=== PATIENT | female | born 1940 | race Hispanic/Latino ===

== ENCOUNTER 2016-08-06 13:33 | Inpatient (IN) | payer MEDICARE ==
[2016-08-06] MEDS ORDERED: HYDROcodone/Acetaminophen 10/325 mg Tablet PO PRN (15:53)
[2016-08-06] MEDS ORDERED: Ondansetron ODT 4 MG TAB PO PRN (15:53)
[2016-08-06] MEDS ORDERED: Acetaminophen 325 MG TAB PO PRN (15:55)
[2016-08-06] MEDS ORDERED: Milk Of Magnesia 30 ML UDCUP PO PRN (15:55)
[2016-08-06] MEDS: HYDROcodone/Acetaminophen 10/325 mg Tablet PO PRN ×2 (16:19→21:12)
[2016-08-06 17:20] LABS: Bilirubin Negative (Negative); Blood, Urine Negative (Negative); Clarity Clear (Clear); Glucose, Urine (Dipstick) Negative (Negative); Leukocyte Negative (Negative); Nitrite Negative (Negative); Protein, Urine (Dipstick) Negative (Neg-Trace); Urobilinogen > or = 8.0 mg/dL (0.2-1.0)
[2016-08-06] MEDS ORDERED: Docusate Sodium 100 MG/10 ML UDCUP PO SCH (21:00)
[2016-08-06] MEDS: Famotidine 20 MG TAB PO SCH (21:03)
[2016-08-06] MEDS: Gabapentin 300 MG CAP PO SCH (21:03)
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
[2016-08-07] MEDS: Enoxaparin Sodium 30 MG/0.3 ML SYRINGE SC SCH (05:08)
[2016-08-07] MEDS: HYDROcodone/Acetaminophen 10/325 mg Tablet PO PRN ×5 (05:08→22:46)
[2016-08-07 06:23] LABS: #Basophils 0.1 thou/uL (0.0-0.2); #Eosinphils 0.3 thou/uL (0.0-0.7); #Lymphocytes 1.4 thou/uL (1.20-3.40); #Monocytes 0.5 thou/uL (0.11-0.59); #Neutrophils 4.7 thou/uL (1.40-6.50); %Basophils 0.8 % (0.0-1.0); %Eosinophils 4.9 % (0.0-10.0); %Lymphocytes 19.5 % (21.0-51.0); %Monocytes 6.7 % (0.0-10.0); %Neutrophils 68.2 % (42.0-75.0); Hemoglobin 8.2 g/dL (12.0-16.0); Mean Corpuscular HGB CONC 32.8 g/dL (32.0-36.0); Mean Corpuscular Hemoglobin 30.5 pg (27.0-31.0); Mean Corpuscular Volume 93.1 fl (81.0-99.0); Mean Platelet Volume 6.4 fL (7.4-10.4); Platelet Count 248 thou/uL (130-400); RBC Distribution Width 16.1 % (11.5-14.5); Red Blood Cell (RBC) Count 2.69 mill/uL (4.20-5.40); White Blood Cell (WBC) Count 6.9 thou/uL (4.8-10.8)
[2016-08-07 06:27] LABS: Anion Gap 13 mmol/L (10-20); BUN (Urea Nitrogen) 9 mg/dL (9.8-20.1); Calc. Creatinine Clearance 128 mL/min (70-130); Calcium 8.7 mg/dL (7.8-10.44); Carbon Dioxide 30 mmol/L (23-31); Chloride 104 mmol/L (98-107); Estimated GFR-MDRD Greater than 90; Glucose 110 mg/dL (83-110); Potassium 3.7 mmol/L (3.5-5.1); Sodium 143 mmol/L (136-145)
[2016-08-07] MEDS ORDERED: Sodium Chloride 0.9% 10 ML ONE ×2 (07:35→20:20)
[2016-08-07] MEDS ORDERED: Morphine Sulfate 2 MG/ML SYRINGE ONE (07:56)
[2016-08-07] MEDS ORDERED: Morphine Sulfate 2 MG/ML SYRINGE SLOW IVP SCH (08:00)
[2016-08-07] MEDS ORDERED: Bacitracin Zinc 1 Packet TOP SCH (09:00)
[2016-08-07] MEDS: Gabapentin 300 MG CAP PO SCH ×3 (09:04→20:27)
[2016-08-07] MEDS: Docusate 100 MG CAP PO SCH ×2 (09:09→20:27)
[2016-08-07] MEDS: Famotidine 20 MG TAB PO SCH ×2 (09:09→20:27)
[2016-08-07] MEDS: Morphine Sulfate 2 MG/ML SYRINGE SLOW IVP PRN ×3 (11:39→20:23)
[2016-08-07] MEDS ORDERED: Polyethylene Glycol 3350 17 GM Packet PO SCH (17:45)
[2016-08-07] MEDS: Polyethylene Glycol 3350 17 GM Packet PO SCH (20:27)
[2016-08-08] MEDS: Morphine Sulfate 2 MG/ML SYRINGE SLOW IVP PRN ×5 (01:20→23:45)
[2016-08-08] MEDS: HYDROcodone/Acetaminophen 10/325 mg Tablet PO PRN ×5 (04:12→20:37)
[2016-08-08] MEDS: Enoxaparin Sodium 30 MG/0.3 ML SYRINGE SC SCH (05:39)
[2016-08-08] MEDS: Docusate 100 MG CAP PO SCH ×2 (08:03→20:30)
[2016-08-08] MEDS: Gabapentin 300 MG CAP PO SCH ×3 (08:03→20:31)
[2016-08-08] MEDS: Famotidine 20 MG TAB PO SCH ×2 (08:03→20:32)
[2016-08-08] MEDS: Polyethylene Glycol 3350 17 GM Packet PO SCH (20:30)
[2016-08-09] MEDS: Enoxaparin Sodium 30 MG/0.3 ML SYRINGE SC SCH (05:48)
[2016-08-09] MEDS: HYDROcodone/Acetaminophen 10/325 mg Tablet PO PRN ×4 (05:48→20:15)
[2016-08-09] MEDS: Morphine Sulfate 2 MG/ML SYRINGE SLOW IVP PRN ×3 (07:10→19:10)
[2016-08-09] MEDS: Gabapentin 300 MG CAP PO SCH ×3 (08:54→20:19)
[2016-08-09] MEDS: Famotidine 20 MG TAB PO SCH ×2 (08:54→20:18)
[2016-08-09] MEDS: Docusate 100 MG CAP PO SCH ×2 (08:54→20:17)
[2016-08-09] MEDS: Polyethylene Glycol 3350 17 GM Packet PO SCH (20:22)
[2016-08-09] MEDS: Lorazepam 0.5 MG TAB PO PRN (21:37)
[2016-08-10] MEDS: Morphine Sulfate 2 MG/ML SYRINGE SLOW IVP PRN ×2 (00:39→06:16)
[2016-08-10] MEDS: HYDROcodone/Acetaminophen 10/325 mg Tablet PO PRN ×5 (02:53→23:31)
[2016-08-10] MEDS: Enoxaparin Sodium 30 MG/0.3 ML SYRINGE SC SCH (05:08)
[2016-08-10] MEDS: Docusate 100 MG CAP PO SCH ×2 (08:16→20:32)
[2016-08-10] MEDS: Famotidine 20 MG TAB PO SCH ×2 (08:16→20:33)
[2016-08-10] MEDS: Gabapentin 300 MG CAP PO SCH ×3 (08:16→20:32)
[2016-08-10] MEDS: fentaNYL 50 mcg/hour Patch TD SCH (11:32)
[2016-08-10] MEDS: Morphine Sulfate 10 mg/0.5 ml Oral Syringe PO PRN ×2 (15:59→22:00)
[2016-08-10] MEDS: Lorazepam 0.5 MG TAB PO PRN (19:38)
[2016-08-10] MEDS: Polyethylene Glycol 3350 17 GM Packet PO SCH (20:32)
[2016-08-11] MEDS: HYDROcodone/Acetaminophen 10/325 mg Tablet PO PRN ×5 (03:22→19:34)
[2016-08-11] MEDS: Morphine Sulfate 10 mg/0.5 ml Oral Syringe PO PRN ×4 (04:05→23:07)
[2016-08-11] MEDS: Enoxaparin Sodium 30 MG/0.3 ML SYRINGE SC SCH (05:55)
[2016-08-11] MEDS: Gabapentin 300 MG CAP PO SCH ×3 (07:56→20:54)
[2016-08-11] MEDS: Docusate 100 MG CAP PO SCH ×2 (07:57→20:55)
[2016-08-11] MEDS: Famotidine 20 MG TAB PO SCH ×2 (07:57→20:55)
[2016-08-11] MEDS: Polyethylene Glycol 3350 17 GM Packet PO SCH (20:55)
[2016-08-12] MEDS: HYDROcodone/Acetaminophen 10/325 mg Tablet PO PRN ×5 (02:47→20:30)
[2016-08-12] MEDS: Enoxaparin Sodium 30 MG/0.3 ML SYRINGE SC SCH (05:06)
[2016-08-12] MEDS: Morphine Sulfate 10 mg/0.5 ml Oral Syringe PO PRN ×3 (05:08→17:59)
[2016-08-12] MEDS: Famotidine 20 MG TAB PO SCH ×2 (07:32→20:38)
[2016-08-12] MEDS: Docusate 100 MG CAP PO SCH ×2 (07:33→20:32)
[2016-08-12] MEDS: Gabapentin 300 MG CAP PO SCH ×3 (07:33→20:29)
[2016-08-12] MEDS: Polyethylene Glycol 3350 17 GM Packet PO SCH (20:32)
[2016-08-12] MEDS: Lorazepam 0.5 MG TAB PO PRN (21:27)
[2016-08-13] MEDS: HYDROcodone/Acetaminophen 10/325 mg Tablet PO PRN ×3 (02:53→14:13)
[2016-08-13] MEDS: Morphine Sulfate 10 mg/0.5 ml Oral Syringe PO PRN (04:03)
[2016-08-13] MEDS: Enoxaparin Sodium 30 MG/0.3 ML SYRINGE SC SCH (05:50)
[2016-08-13] MEDS: Docusate 100 MG CAP PO SCH ×2 (08:52→20:23)
[2016-08-13] MEDS: Gabapentin 300 MG CAP PO SCH ×3 (08:52→20:23)
[2016-08-13] MEDS: Famotidine 20 MG TAB PO SCH ×2 (08:52→20:24)
[2016-08-13] MEDS: fentaNYL 50 mcg/hour Patch TD SCH (12:37)
[2016-08-13] MEDS: HYDROcodone/Acetaminophen 10/325 mg Tablet PO SCH ×3 (15:40→23:17)
[2016-08-13] MEDS ORDERED: Morphine Sulfate 10 mg/0.5 ml Oral Syringe SL SCH (17:15)
[2016-08-13] MEDS: Polyethylene Glycol 3350 17 GM Packet PO SCH (20:05)
[2016-08-14] MEDS: HYDROcodone/Acetaminophen 10/325 mg Tablet PO SCH ×6 (04:30→23:37)
[2016-08-14] MEDS: Enoxaparin Sodium 30 MG/0.3 ML SYRINGE SC SCH (05:06)
[2016-08-14] MEDS: Docusate 100 MG CAP PO SCH ×2 (09:15→20:04)
[2016-08-14] MEDS: Gabapentin 300 MG CAP PO SCH ×3 (09:15→20:04)
[2016-08-14] MEDS: Famotidine 20 MG TAB PO SCH ×2 (09:16→20:05)
[2016-08-14] MEDS: Polyethylene Glycol 3350 17 GM Packet PO SCH (20:04)
[2016-08-14] MEDS: Lorazepam 0.5 MG TAB PO PRN (22:58)
[2016-08-15] MEDS: HYDROcodone/Acetaminophen 10/325 mg Tablet PO SCH ×6 (03:33→23:51)
[2016-08-15] MEDS: Enoxaparin Sodium 30 MG/0.3 ML SYRINGE SC SCH (06:35)
[2016-08-15] MEDS: Docusate 100 MG CAP PO SCH ×2 (08:42→20:35)
[2016-08-15] MEDS: Famotidine 20 MG TAB PO SCH ×2 (08:43→20:35)
[2016-08-15] MEDS: Gabapentin 300 MG CAP PO SCH ×3 (08:43→20:35)
[2016-08-15] MEDS: Polyethylene Glycol 3350 17 GM Packet PO SCH ×2 (20:35→20:36)
[2016-08-16] MEDS: HYDROcodone/Acetaminophen 10/325 mg Tablet PO SCH ×5 (03:44→19:47)
[2016-08-16] MEDS: Enoxaparin Sodium 30 MG/0.3 ML SYRINGE SC SCH (05:34)
[2016-08-16] MEDS: Gabapentin 300 MG CAP PO SCH ×3 (09:30→20:31)
[2016-08-16] MEDS: Docusate 100 MG CAP PO SCH ×2 (09:30→20:31)
[2016-08-16] MEDS: Famotidine 20 MG TAB PO SCH ×2 (09:30→20:31)
[2016-08-16] MEDS: fentaNYL 50 mcg/hour Patch TD SCH (12:30)
[2016-08-16] MEDS: Polyethylene Glycol 3350 17 GM Packet PO SCH (20:31)
[2016-08-17] MEDS: HYDROcodone/Acetaminophen 10/325 mg Tablet PO SCH ×7 (00:19→23:44)
[2016-08-17] MEDS: Enoxaparin Sodium 30 MG/0.3 ML SYRINGE SC SCH (05:50)
[2016-08-17] MEDS: Gabapentin 300 MG CAP PO SCH ×3 (08:18→20:53)
[2016-08-17] MEDS: Docusate 100 MG CAP PO SCH ×2 (08:18→20:53)
[2016-08-17] MEDS: Famotidine 20 MG TAB PO SCH ×2 (08:19→20:54)
[2016-08-17] MEDS: Polyethylene Glycol 3350 17 GM Packet PO SCH (20:54)
[2016-08-18] MEDS: HYDROcodone/Acetaminophen 10/325 mg Tablet PO SCH ×6 (03:37→23:48)
[2016-08-18] MEDS: Enoxaparin Sodium 30 MG/0.3 ML SYRINGE SC SCH (05:13)
[2016-08-18] MEDS: Gabapentin 300 MG CAP PO SCH ×3 (08:52→20:25)
[2016-08-18] MEDS: Docusate 100 MG CAP PO SCH ×2 (08:52→20:26)
[2016-08-18] MEDS: Famotidine 20 MG TAB PO SCH ×2 (08:53→20:27)
[2016-08-18] MEDS: Polyethylene Glycol 3350 17 GM Packet PO SCH ×2 (20:25→20:27)
[2016-08-19] MEDS ORDERED: Diazepam 5 MG TAB PO SCH (01:30)
[2016-08-19] MEDS: HYDROcodone/Acetaminophen 10/325 mg Tablet PO SCH ×6 (03:53→23:59)
[2016-08-19] MEDS: Enoxaparin Sodium 30 MG/0.3 ML SYRINGE SC SCH (05:50)
[2016-08-19] MEDS ORDERED: Sodium Chloride Irrig Solution 250 ML BOT ONE (09:24)
[2016-08-19] MEDS: Gabapentin 300 MG CAP PO SCH (09:31)
[2016-08-19] MEDS: Famotidine 20 MG TAB PO SCH ×2 (09:31→20:13)
[2016-08-19] MEDS: Docusate 100 MG CAP PO SCH ×2 (09:31→20:14)
[2016-08-19] MEDS ORDERED: Diazepam 5 MG TAB PO PRN (10:58)
[2016-08-19] MEDS: fentaNYL 50 mcg/hour Patch TD SCH (11:35)
[2016-08-19] MEDS ORDERED: Gabapentin 300 MG CAP PO SCH (12:55)
[2016-08-19] MEDS: Gabapentin 400 MG CAP PO SCH ×2 (15:35→20:14)
[2016-08-19] MEDS: Lorazepam 0.5 MG TAB PO SCH (20:14)
[2016-08-20] MEDS: HYDROcodone/Acetaminophen 10/325 mg Tablet PO SCH ×6 (03:27→23:34)
[2016-08-20] MEDS: Enoxaparin Sodium 30 MG/0.3 ML SYRINGE SC SCH (05:34)
[2016-08-20] MEDS: Gabapentin 400 MG CAP PO SCH ×3 (07:45→19:38)
[2016-08-20] MEDS: Famotidine 20 MG TAB PO SCH ×2 (07:46→19:38)
[2016-08-20] MEDS: Docusate 100 MG CAP PO SCH ×2 (07:46→19:37)
[2016-08-20] MEDS: Polyethylene Glycol 3350 17 GM Packet PO SCH (19:38)
[2016-08-20] MEDS: Lorazepam 0.5 MG TAB PO SCH (19:38)
[2016-08-21] MEDS: HYDROcodone/Acetaminophen 10/325 mg Tablet PO SCH ×6 (03:45→23:47)
[2016-08-21] MEDS: Enoxaparin Sodium 30 MG/0.3 ML SYRINGE SC SCH (05:38)
[2016-08-21] MEDS: Gabapentin 400 MG CAP PO SCH ×3 (07:49→20:51)
[2016-08-21] MEDS: Docusate 100 MG CAP PO SCH ×2 (07:50→20:52)
[2016-08-21] MEDS: Famotidine 20 MG TAB PO SCH ×2 (07:50→20:52)
[2016-08-21] MEDS ORDERED: Morphine Sulfate 10 mg/0.5 ml Oral Syringe SL PRN (09:57)
[2016-08-21] MEDS: Lorazepam 0.5 MG TAB PO SCH (20:52)
[2016-08-21] MEDS: Polyethylene Glycol 3350 17 GM Packet PO SCH (20:52)
[2016-08-22] MEDS: HYDROcodone/Acetaminophen 10/325 mg Tablet PO SCH ×6 (03:51→23:59)
[2016-08-22] MEDS: Enoxaparin Sodium 30 MG/0.3 ML SYRINGE SC SCH (06:00)
[2016-08-22] MEDS: Famotidine 20 MG TAB PO SCH ×2 (08:02→21:09)
[2016-08-22] MEDS: Gabapentin 400 MG CAP PO SCH ×3 (08:02→21:08)
[2016-08-22] MEDS: Docusate 100 MG CAP PO SCH ×2 (08:04→21:11)
[2016-08-22] MEDS: fentaNYL 50 mcg/hour Patch TD SCH (12:41)
[2016-08-22] MEDS: Lorazepam 0.5 MG TAB PO SCH (21:08)
[2016-08-22] MEDS: Polyethylene Glycol 3350 17 GM Packet PO SCH (21:10)
[2016-08-23] MEDS ORDERED: Morphine Sulfate 10 mg/0.5 ml Oral Syringe SL SCH (03:00)
[2016-08-23] MEDS: HYDROcodone/Acetaminophen 10/325 mg Tablet PO SCH ×6 (04:58→23:54)
[2016-08-23] MEDS: Enoxaparin Sodium 30 MG/0.3 ML SYRINGE SC SCH (05:01)
[2016-08-23] MEDS: Gabapentin 400 MG CAP PO SCH ×3 (08:34→20:37)
[2016-08-23] MEDS: Famotidine 20 MG TAB PO SCH ×2 (08:34→20:38)
[2016-08-23] MEDS: Docusate 100 MG CAP PO SCH ×2 (08:34→20:38)
[2016-08-23] MEDS ORDERED: HYDROcodone/Acetaminophen 10/325 mg Tablet PO SCH (16:30)
[2016-08-23] MEDS ORDERED: Mag-Al Plus 1200 MG/1200 MG/120 MG/30 ML UDCUP PO PRN (16:46)
[2016-08-23] MEDS: Lorazepam 0.5 MG TAB PO SCH (20:37)
[2016-08-23] MEDS: Polyethylene Glycol 3350 17 GM Packet PO SCH (20:38)
[2016-08-24] MEDS: HYDROcodone/Acetaminophen 10/325 mg Tablet PO SCH ×6 (04:43→20:43)
[2016-08-24] MEDS: Enoxaparin Sodium 30 MG/0.3 ML SYRINGE SC SCH (05:21)
[2016-08-24] MEDS: Famotidine 20 MG TAB PO SCH ×2 (08:48→20:46)
[2016-08-24] MEDS: Docusate 100 MG CAP PO SCH ×2 (08:48→20:44)
[2016-08-24] MEDS: Gabapentin 400 MG CAP PO SCH (08:48)
[2016-08-24] MEDS: Gabapentin 100 MG CAP PO SCH ×2 (14:59→20:45)
[2016-08-24] MEDS: Gabapentin 300 MG CAP PO SCH ×2 (15:00→20:42)
[2016-08-24] MEDS: Polyethylene Glycol 3350 17 GM Packet PO SCH ×2 (20:42→20:48)
[2016-08-24] MEDS: Lorazepam 0.5 MG TAB PO SCH (20:45)
[2016-08-25] MEDS: HYDROcodone/Acetaminophen 10/325 mg Tablet PO SCH ×6 (00:50→20:57)
[2016-08-25] MEDS: Enoxaparin Sodium 30 MG/0.3 ML SYRINGE SC SCH (05:20)
[2016-08-25] MEDS ORDERED: traMADol HCl 50 MG TAB PO PRN (05:52)
[2016-08-25] MEDS ORDERED: traMADol HCl 50 MG TAB ONE (06:06)
[2016-08-25] MEDS: traMADol HCl 50 MG TAB PO PRN (06:09)
[2016-08-25] MEDS: Docusate 100 MG CAP PO SCH ×2 (08:36→20:57)
[2016-08-25] MEDS: Famotidine 20 MG TAB PO SCH ×2 (08:36→20:56)
[2016-08-25] MEDS: Gabapentin 400 MG CAP PO SCH ×3 (08:37→20:56)
[2016-08-25] MEDS: Nystatin Cream 15 GM TUBE TOP SCH ×2 (08:39→20:59)
[2016-08-25] MEDS ORDERED: fentaNYL 50 mcg/hour Patch TD SCH (09:15)
[2016-08-25] MEDS: fentaNYL 50 mcg/hour Patch TD SCH (09:56)
[2016-08-25] MEDS: Polyethylene Glycol 3350 17 GM Packet PO SCH (20:56)
[2016-08-25] MEDS: Lorazepam 0.5 MG TAB PO SCH (20:57)
[2016-08-26] MEDS: HYDROcodone/Acetaminophen 10/325 mg Tablet PO SCH ×6 (01:12→20:45)
[2016-08-26] MEDS: Enoxaparin Sodium 30 MG/0.3 ML SYRINGE SC SCH (05:01)
[2016-08-26] MEDS: Famotidine 20 MG TAB PO SCH ×2 (08:29→20:44)
[2016-08-26] MEDS: Gabapentin 400 MG CAP PO SCH ×3 (08:29→20:44)
[2016-08-26] MEDS: Docusate 100 MG CAP PO SCH ×2 (08:29→20:44)
[2016-08-26] MEDS: Nystatin Cream 15 GM TUBE TOP SCH ×2 (08:31→20:46)
[2016-08-26] MEDS: Lorazepam 0.5 MG TAB PO SCH (20:44)
[2016-08-26] MEDS: Polyethylene Glycol 3350 17 GM Packet PO SCH (20:46)
[2016-08-27] MEDS: HYDROcodone/Acetaminophen 10/325 mg Tablet PO SCH ×6 (00:49→20:47)
[2016-08-27] MEDS: Enoxaparin Sodium 30 MG/0.3 ML SYRINGE SC SCH (04:59)
[2016-08-27] MEDS: Gabapentin 400 MG CAP PO SCH ×3 (09:20→20:50)
[2016-08-27] MEDS: Docusate 100 MG CAP PO SCH ×2 (09:21→20:49)
[2016-08-27] MEDS: Famotidine 20 MG TAB PO SCH ×2 (09:21→20:51)
[2016-08-27] MEDS: Nystatin Cream 15 GM TUBE TOP SCH ×2 (09:22→20:51)
[2016-08-27] MEDS: Polyethylene Glycol 3350 17 GM Packet PO SCH (20:47)
[2016-08-27] MEDS: Lorazepam 0.5 MG TAB PO SCH (20:49)
[2016-08-28] MEDS: HYDROcodone/Acetaminophen 10/325 mg Tablet PO SCH ×6 (01:29→20:23)
[2016-08-28] MEDS: Enoxaparin Sodium 30 MG/0.3 ML SYRINGE SC SCH (06:11)
[2016-08-28] MEDS: Gabapentin 400 MG CAP PO SCH ×3 (08:58→20:22)
[2016-08-28] MEDS: Docusate 100 MG CAP PO SCH ×2 (08:59→20:23)
[2016-08-28] MEDS: Famotidine 20 MG TAB PO SCH ×2 (08:59→20:25)
[2016-08-28] MEDS: Nystatin Cream 15 GM TUBE TOP SCH ×2 (08:59→20:21)
[2016-08-28] MEDS: fentaNYL 50 mcg/hour Patch TD SCH (10:19)
[2016-08-28] MEDS: Lorazepam 0.5 MG TAB PO SCH (20:24)
[2016-08-28] MEDS: Polyethylene Glycol 3350 17 GM Packet PO SCH (20:32)
[2016-08-29] MEDS: HYDROcodone/Acetaminophen 10/325 mg Tablet PO SCH ×6 (00:39→20:56)
[2016-08-29] MEDS: Enoxaparin Sodium 30 MG/0.3 ML SYRINGE SC SCH (05:42)
[2016-08-29] MEDS: Docusate 100 MG CAP PO SCH ×2 (08:09→20:33)
[2016-08-29] MEDS: Famotidine 20 MG TAB PO SCH ×2 (08:09→20:32)
[2016-08-29] MEDS: Gabapentin 400 MG CAP PO SCH ×3 (08:09→20:31)
[2016-08-29] MEDS: Nystatin Cream 15 GM TUBE TOP SCH ×2 (08:10→20:36)
[2016-08-29] MEDS: Lorazepam 0.5 MG TAB PO SCH (20:33)
[2016-08-29] MEDS: Polyethylene Glycol 3350 17 GM Packet PO SCH (20:34)
[2016-08-30] MEDS: HYDROcodone/Acetaminophen 10/325 mg Tablet PO SCH ×6 (00:56→20:47)
[2016-08-30] MEDS: Enoxaparin Sodium 30 MG/0.3 ML SYRINGE SC SCH (05:01)
[2016-08-30] MEDS: Docusate 100 MG CAP PO SCH ×3 (08:34→20:53)
[2016-08-30] MEDS: Famotidine 20 MG TAB PO SCH ×2 (08:34→20:47)
[2016-08-30] MEDS: Gabapentin 400 MG CAP PO SCH ×3 (08:34→20:46)
[2016-08-30] MEDS: Nystatin Cream 15 GM TUBE TOP SCH ×2 (12:05→20:52)
[2016-08-30] MEDS: Lorazepam 0.5 MG TAB PO SCH (20:47)
[2016-08-30] MEDS: Polyethylene Glycol 3350 17 GM Packet PO SCH (20:54)
[2016-08-31] MEDS: HYDROcodone/Acetaminophen 10/325 mg Tablet PO SCH ×6 (00:54→20:47)
[2016-08-31] MEDS: Enoxaparin Sodium 30 MG/0.3 ML SYRINGE SC SCH (05:14)
[2016-08-31] MEDS: Famotidine 20 MG TAB PO SCH ×2 (09:02→20:47)
[2016-08-31] MEDS: Gabapentin 400 MG CAP PO SCH ×3 (09:02→20:47)
[2016-08-31] MEDS: Docusate 100 MG CAP PO SCH ×2 (09:04→20:49)
[2016-08-31] MEDS: Nystatin Cream 15 GM TUBE TOP SCH ×2 (10:40→20:49)
[2016-08-31] MEDS: fentaNYL 50 mcg/hour Patch TD SCH (10:41)
[2016-08-31] MEDS: Lorazepam 0.5 MG TAB PO SCH (20:47)
[2016-08-31] MEDS: Polyethylene Glycol 3350 17 GM Packet PO SCH (20:49)
[2016-09-01] MEDS: HYDROcodone/Acetaminophen 10/325 mg Tablet PO SCH ×6 (00:42→20:49)
[2016-09-01] MEDS: Lantiseptic Ointment 130 GM JAR TOP PRN (05:00)
[2016-09-01] MEDS: Enoxaparin Sodium 30 MG/0.3 ML SYRINGE SC SCH (05:13)
[2016-09-01] MEDS: Famotidine 20 MG TAB PO SCH ×2 (08:49→20:51)
[2016-09-01] MEDS: Gabapentin 400 MG CAP PO SCH ×3 (08:49→20:50)
[2016-09-01] MEDS: Nystatin Cream 15 GM TUBE TOP SCH ×2 (08:53→21:01)
[2016-09-01] MEDS: Docusate 100 MG CAP PO SCH ×2 (11:53→21:01)
[2016-09-01] MEDS: Lorazepam 0.5 MG TAB PO SCH (20:51)
[2016-09-01] MEDS: Polyethylene Glycol 3350 17 GM Packet PO SCH (21:01)
[2016-09-02] MEDS: HYDROcodone/Acetaminophen 10/325 mg Tablet PO SCH ×6 (00:52→20:49)
[2016-09-02] MEDS: Enoxaparin Sodium 30 MG/0.3 ML SYRINGE SC SCH (05:03)
[2016-09-02] MEDS: Gabapentin 400 MG CAP PO SCH ×3 (09:10→20:49)
[2016-09-02] MEDS: Nystatin Cream 15 GM TUBE TOP SCH ×2 (09:11→20:53)
[2016-09-02] MEDS: Famotidine 20 MG TAB PO SCH ×2 (09:11→20:49)
[2016-09-02] MEDS: Docusate 100 MG CAP PO SCH (09:11)
[2016-09-02] MEDS ORDERED: Polyethylene Glycol 3350 17 GM Packet PO PRN (09:14)
[2016-09-02] MEDS: traMADol HCl 50 MG TAB PO PRN (14:35)
[2016-09-02] MEDS: Lorazepam 0.5 MG TAB PO SCH (20:50)
[2016-09-03] MEDS: HYDROcodone/Acetaminophen 10/325 mg Tablet PO SCH ×6 (00:47→20:40)
[2016-09-03] MEDS: Enoxaparin Sodium 30 MG/0.3 ML SYRINGE SC SCH (05:01)
[2016-09-03 05:11] LABS: #Basophils 0.1 thou/uL (0.0-0.2); #Eosinphils 0.4 thou/uL (0.0-0.7); #Lymphocytes 2.5 thou/uL (1.20-3.40); #Monocytes 0.6 thou/uL (0.11-0.59); #Neutrophils 2.7 thou/uL (1.40-6.50); %Basophils 0.9 % (0.0-1.0); %Eosinophils 6.5 % (0.0-10.0); %Lymphocytes 39.9 % (21.0-51.0); %Monocytes 9.8 % (0.0-10.0); %Neutrophils 42.9 % (42.0-75.0); Hemoglobin 10.4 g/dL (12.0-16.0); Mean Corpuscular HGB CONC 31.1 g/dL (32.0-36.0); Mean Corpuscular Hemoglobin 30.7 pg (27.0-31.0); Mean Corpuscular Volume 98.7 fl (81.0-99.0); Platelet Count 256 thou/uL (130-400); RBC Distribution Width 17.1 % (11.5-14.5); Red Blood Cell (RBC) Count 3.37 mill/uL (4.20-5.40); White Blood Cell (WBC) Count 6.3 thou/uL (4.8-10.8)
[2016-09-03 05:46] LABS: Anion Gap 13 mmol/L (10-20); BUN (Urea Nitrogen) 18 mg/dL (9.8-20.1); Calc. Creatinine Clearance 90 mL/min (70-130); Calcium 9.3 mg/dL (7.8-10.44); Carbon Dioxide 33 mmol/L (23-31); Chloride 102 mmol/L (98-107); Estimated GFR-MDRD Greater than 90; Glucose 91 mg/dL (83-110); Potassium 4.7 mmol/L (3.5-5.1); Sodium 143 mmol/L (136-145)
[2016-09-03] MEDS: Docusate 100 MG CAP PO SCH (09:17)
[2016-09-03] MEDS: Gabapentin 400 MG CAP PO SCH ×3 (09:18→20:38)
[2016-09-03] MEDS: fentaNYL 50 mcg/hour Patch TD SCH (09:18)
[2016-09-03] MEDS: Famotidine 20 MG TAB PO SCH ×2 (09:18→20:39)
[2016-09-03] MEDS: Nystatin Cream 15 GM TUBE TOP SCH ×2 (09:19→20:43)
[2016-09-03] MEDS: Lorazepam 0.5 MG TAB PO SCH (20:39)
[2016-09-04] MEDS: HYDROcodone/Acetaminophen 10/325 mg Tablet PO SCH ×6 (00:54→20:51)
[2016-09-04] MEDS: Enoxaparin Sodium 30 MG/0.3 ML SYRINGE SC SCH (05:02)
[2016-09-04] MEDS ORDERED: traMADol HCl 50 MG TAB PO SCH (06:15)
[2016-09-04] MEDS: Gabapentin 400 MG CAP PO SCH ×3 (08:38→20:51)
[2016-09-04] MEDS: Famotidine 20 MG TAB PO SCH ×2 (08:39→20:51)
[2016-09-04] MEDS: Docusate 100 MG CAP PO SCH (08:40)
[2016-09-04] MEDS: Nystatin Cream 15 GM TUBE TOP SCH ×2 (08:40→20:50)
[2016-09-04] MEDS: traMADol HCl 50 MG TAB PO PRN ×2 (12:10→22:13)
[2016-09-04] MEDS: Lorazepam 0.5 MG TAB PO SCH (20:50)
[2016-09-04] MEDS: Lantiseptic Ointment 130 GM JAR TOP PRN (20:54)
[2016-09-05] MEDS: HYDROcodone/Acetaminophen 10/325 mg Tablet PO SCH ×6 (01:05→20:13)
[2016-09-05] MEDS: Enoxaparin Sodium 30 MG/0.3 ML SYRINGE SC SCH (05:17)
[2016-09-05] MEDS: traMADol HCl 50 MG TAB PO PRN ×2 (06:37→15:21)
[2016-09-05] MEDS: Docusate 100 MG CAP PO SCH (08:34)
[2016-09-05] MEDS: Gabapentin 400 MG CAP PO SCH ×3 (08:34→20:13)
[2016-09-05] MEDS: Famotidine 20 MG TAB PO SCH ×2 (08:34→20:13)
[2016-09-05] MEDS: Nystatin Cream 15 GM TUBE TOP SCH ×2 (08:35→20:16)
[2016-09-05] MEDS: Lorazepam 0.5 MG TAB PO SCH (20:13)
[2016-09-05] MEDS: Lantiseptic Ointment 130 GM JAR TOP PRN (20:16)
[2016-09-06] MEDS: traMADol HCl 50 MG TAB PO PRN ×3 (00:31→23:24)
[2016-09-06] MEDS: HYDROcodone/Acetaminophen 10/325 mg Tablet PO SCH ×6 (01:11→20:55)
[2016-09-06] MEDS: Enoxaparin Sodium 30 MG/0.3 ML SYRINGE SC SCH (05:16)
[2016-09-06] MEDS: Gabapentin 400 MG CAP PO SCH ×3 (09:09→20:55)
[2016-09-06] MEDS: fentaNYL 50 mcg/hour Patch TD SCH (09:09)
[2016-09-06] MEDS: Docusate 100 MG CAP PO SCH (09:10)
[2016-09-06] MEDS: Famotidine 20 MG TAB PO SCH ×2 (09:10→20:55)
[2016-09-06] MEDS: Nystatin Cream 15 GM TUBE TOP SCH ×2 (09:10→21:00)
[2016-09-06] MEDS: Lorazepam 0.5 MG TAB PO SCH (20:56)
[2016-09-07] MEDS: HYDROcodone/Acetaminophen 10/325 mg Tablet PO SCH ×6 (00:50→21:01)
[2016-09-07] MEDS: Enoxaparin Sodium 30 MG/0.3 ML SYRINGE SC SCH (05:31)
[2016-09-07] MEDS: Docusate 100 MG CAP PO SCH (08:56)
[2016-09-07] MEDS: Gabapentin 400 MG CAP PO SCH ×3 (08:56→21:01)
[2016-09-07] MEDS: Famotidine 20 MG TAB PO SCH ×2 (08:56→21:01)
[2016-09-07] MEDS: Nystatin Cream 15 GM TUBE TOP SCH ×2 (08:57→21:02)
[2016-09-07] MEDS: traMADol HCl 50 MG TAB PO PRN ×2 (10:14→23:49)
[2016-09-07] MEDS: Cyclobenzaprine 10 MG TAB PO PRN (13:02)
[2016-09-08] MEDS: HYDROcodone/Acetaminophen 10/325 mg Tablet PO SCH ×6 (01:21→21:02)
[2016-09-08] MEDS: Cyclobenzaprine 10 MG TAB PO PRN ×2 (03:28→11:45)
[2016-09-08] MEDS: Enoxaparin Sodium 30 MG/0.3 ML SYRINGE SC SCH (05:32)
[2016-09-08] MEDS: Gabapentin 400 MG CAP PO SCH ×3 (08:32→21:02)
[2016-09-08] MEDS: Docusate 100 MG CAP PO SCH (08:32)
[2016-09-08] MEDS: Famotidine 20 MG TAB PO SCH ×2 (08:32→21:02)
[2016-09-08] MEDS: Nystatin Cream 15 GM TUBE TOP SCH ×2 (08:34→21:04)
[2016-09-08] MEDS: traMADol HCl 50 MG TAB PO PRN ×2 (09:36→18:03)
[2016-09-09] MEDS: HYDROcodone/Acetaminophen 10/325 mg Tablet PO SCH ×6 (01:02→20:58)
[2016-09-09] MEDS: Cyclobenzaprine 10 MG TAB PO PRN ×2 (01:02→12:31)
[2016-09-09] MEDS: Enoxaparin Sodium 30 MG/0.3 ML SYRINGE SC SCH (05:03)
[2016-09-09] MEDS: fentaNYL 50 mcg/hour Patch TD SCH (08:44)
[2016-09-09] MEDS: Docusate 100 MG CAP PO SCH (08:46)
[2016-09-09] MEDS: Gabapentin 400 MG CAP PO SCH ×3 (08:46→20:58)
[2016-09-09] MEDS: Nystatin Cream 15 GM TUBE TOP SCH ×2 (08:48→20:58)
[2016-09-09] MEDS: Famotidine 20 MG TAB PO SCH ×2 (08:48→20:58)
[2016-09-09] MEDS: traMADol HCl 50 MG TAB PO PRN (10:55)
[2016-09-10] MEDS: HYDROcodone/Acetaminophen 10/325 mg Tablet PO SCH ×6 (00:46→20:59)
[2016-09-10] MEDS: Cyclobenzaprine 10 MG TAB PO PRN ×2 (00:49→13:07)
[2016-09-10] MEDS: Enoxaparin Sodium 30 MG/0.3 ML SYRINGE SC SCH (05:06)
[2016-09-10] MEDS: Docusate 100 MG CAP PO SCH (09:20)
[2016-09-10] MEDS: Gabapentin 400 MG CAP PO SCH ×3 (09:20→20:16)
[2016-09-10] MEDS: Famotidine 20 MG TAB PO SCH ×2 (09:21→20:16)
[2016-09-10] MEDS: Nystatin Cream 15 GM TUBE TOP SCH ×2 (11:05→20:17)
[2016-09-10] MEDS: traMADol HCl 50 MG TAB PO PRN ×2 (14:24→22:29)
[2016-09-11] MEDS: Cyclobenzaprine 10 MG TAB PO PRN (00:21)
[2016-09-11] MEDS: HYDROcodone/Acetaminophen 10/325 mg Tablet PO SCH ×6 (01:07→21:03)
[2016-09-11] MEDS: Enoxaparin Sodium 30 MG/0.3 ML SYRINGE SC SCH (05:26)
[2016-09-11] MEDS: Docusate 100 MG CAP PO SCH (09:02)
[2016-09-11] MEDS: Gabapentin 400 MG CAP PO SCH ×3 (09:03→21:02)
[2016-09-11] MEDS: Famotidine 20 MG TAB PO SCH ×2 (09:03→21:02)
[2016-09-11] MEDS: Nystatin Cream 15 GM TUBE TOP SCH ×2 (09:04→21:05)
[2016-09-11 09:57] LABS: #Basophils 0.1 thou/uL (0.0-0.2); #Eosinphils 0.6 thou/uL (0.0-0.7); #Lymphocytes 2.5 thou/uL (1.20-3.40); #Monocytes 0.5 thou/uL (0.11-0.59); #Neutrophils 2.6 thou/uL (1.40-6.50); %Basophils 0.9 % (0.0-1.0); %Eosinophils 9.2 % (0.0-10.0); %Neutrophils 41.9 % (42.0-75.0); Hemoglobin 10.8 g/dL (12.0-16.0); Mean Corpuscular Hemoglobin 30.6 pg (27.0-31.0); Mean Corpuscular Volume 98.7 fl (81.0-99.0); Mean Platelet Volume 6.7 fL (7.4-10.4); Platelet Count 287 thou/uL (130-400); RBC Distribution Width 16.7 % (11.5-14.5); Red Blood Cell (RBC) Count 3.53 mill/uL (4.20-5.40); White Blood Cell (WBC) Count 6.1 thou/uL (4.8-10.8)
[2016-09-11 10:07] LABS: ALT (SGPT) 9 U/L (0-55); AST (SGOT) 15 U/L (5-34); Albumin 3.3 g/dL (3.4-4.8); Alkaline Phosphatase 177 U/L (40-150); Anion Gap 16 mmol/L (10-20); BUN (Urea Nitrogen) 17 mg/dL (9.8-20.1); Bilirubin, Total 0.3 mg/dL (0.2-1.2); Calc. Creatinine Clearance 86 mL/min (70-130); Calcium 9.3 mg/dL (7.8-10.44); Carbon Dioxide 31 mmol/L (23-31); Chloride 98 mmol/L (98-107); Estimated GFR-MDRD 86; Globulin 2.9 g/dL (2.4-3.5); Glucose 81 mg/dL (83-110); Potassium 3.9 mmol/L (3.5-5.1); Protein, Total 6.2 g/dL (5.8-8.1); Sodium 141 mmol/L (136-145)
[2016-09-11] MEDS: traMADol HCl 50 MG TAB PO PRN (10:20)
[2016-09-11] MEDS: Cyclobenzaprine 10 MG TAB PO SCH ×2 (13:08→21:43)
[2016-09-12] MEDS: HYDROcodone/Acetaminophen 10/325 mg Tablet PO SCH ×6 (00:53→21:06)
[2016-09-12] MEDS: Cyclobenzaprine 10 MG TAB PO SCH ×3 (05:19→21:05)
[2016-09-12] MEDS: Enoxaparin Sodium 30 MG/0.3 ML SYRINGE SC SCH (05:19)
[2016-09-12] MEDS: Famotidine 20 MG TAB PO SCH ×2 (08:59→21:05)
[2016-09-12] MEDS: Gabapentin 400 MG CAP PO SCH ×3 (08:59→21:05)
[2016-09-12] MEDS: Docusate 100 MG CAP PO SCH (09:01)
[2016-09-12] MEDS: Nystatin Cream 15 GM TUBE TOP SCH ×2 (09:01→21:05)
[2016-09-12] MEDS: fentaNYL 50 mcg/hour Patch TD SCH (09:02)
[2016-09-12] MEDS: traMADol HCl 50 MG TAB PO PRN (11:12)
[2016-09-13] MEDS: HYDROcodone/Acetaminophen 10/325 mg Tablet PO SCH ×6 (01:14→20:56)
[2016-09-13] MEDS: Cyclobenzaprine 10 MG TAB PO SCH ×3 (05:27→21:41)
[2016-09-13] MEDS: Enoxaparin Sodium 30 MG/0.3 ML SYRINGE SC SCH (05:27)
[2016-09-13] MEDS: Gabapentin 400 MG CAP PO SCH ×3 (08:36→20:58)
[2016-09-13] MEDS: Docusate 100 MG CAP PO SCH (08:37)
[2016-09-13] MEDS: Nystatin Cream 15 GM TUBE TOP SCH ×2 (08:37→21:40)
[2016-09-13] MEDS: Famotidine 20 MG TAB PO SCH ×2 (08:37→20:59)
[2016-09-14] MEDS: HYDROcodone/Acetaminophen 10/325 mg Tablet PO SCH ×6 (00:38→20:44)
[2016-09-14] MEDS: Enoxaparin Sodium 30 MG/0.3 ML SYRINGE SC SCH (05:15)
[2016-09-14] MEDS: Cyclobenzaprine 10 MG TAB PO SCH ×3 (05:16→21:04)
[2016-09-14] MEDS: Famotidine 20 MG TAB PO SCH ×2 (08:26→20:43)
[2016-09-14] MEDS: Gabapentin 400 MG CAP PO SCH ×3 (08:27→20:43)
[2016-09-14] MEDS: Docusate 100 MG CAP PO SCH (08:28)
[2016-09-14] MEDS: Nystatin Cream 15 GM TUBE TOP SCH ×2 (08:28→20:46)
[2016-09-15] MEDS: HYDROcodone/Acetaminophen 10/325 mg Tablet PO SCH ×6 (00:59→20:36)
[2016-09-15] MEDS: Enoxaparin Sodium 30 MG/0.3 ML SYRINGE SC SCH (05:03)
[2016-09-15] MEDS: Cyclobenzaprine 10 MG TAB PO SCH ×2 (05:03→14:13)
[2016-09-15] MEDS: Famotidine 20 MG TAB PO SCH ×2 (08:42→20:36)
[2016-09-15] MEDS: Gabapentin 400 MG CAP PO SCH ×3 (08:42→20:36)
[2016-09-15] MEDS: Nystatin Cream 15 GM TUBE TOP SCH ×2 (08:43→20:37)
[2016-09-15] MEDS: Docusate 100 MG CAP PO SCH (08:43)
[2016-09-15] MEDS: fentaNYL 50 mcg/hour Patch TD SCH (14:12)
[2016-09-15] MEDS: traMADol HCl 50 MG TAB PO PRN (14:15)
[2016-09-16] MEDS: HYDROcodone/Acetaminophen 10/325 mg Tablet PO SCH ×6 (00:59→20:58)
[2016-09-16] MEDS: Cyclobenzaprine 10 MG TAB PO SCH ×4 (01:01→21:01)
[2016-09-16] MEDS: Enoxaparin Sodium 30 MG/0.3 ML SYRINGE SC SCH (05:32)
[2016-09-16] MEDS: Docusate 100 MG CAP PO SCH (08:48)
[2016-09-16] MEDS: Famotidine 20 MG TAB PO SCH ×2 (08:49→21:01)
[2016-09-16] MEDS: Gabapentin 400 MG CAP PO SCH ×3 (08:49→20:57)
[2016-09-16] MEDS: Nystatin Cream 15 GM TUBE TOP SCH ×2 (08:50→20:57)
[2016-09-17] MEDS: HYDROcodone/Acetaminophen 10/325 mg Tablet PO SCH ×6 (00:44→20:57)
[2016-09-17] MEDS: Cyclobenzaprine 10 MG TAB PO SCH ×3 (05:12→20:57)
[2016-09-17] MEDS: Enoxaparin Sodium 30 MG/0.3 ML SYRINGE SC SCH (05:13)
[2016-09-17] MEDS: Clotrimazole 1% Cream 15 GM TUBE TOP SCH (09:28)
[2016-09-17] MEDS: Famotidine 20 MG TAB PO SCH ×2 (09:28→20:56)
[2016-09-17] MEDS: Docusate 100 MG CAP PO SCH (09:29)
[2016-09-17] MEDS: Gabapentin 400 MG CAP PO SCH ×3 (09:29→20:56)
[2016-09-17] MEDS: Nystatin Cream 15 GM TUBE TOP SCH ×2 (09:30→20:58)
[2016-09-17] MEDS: traMADol HCl 50 MG TAB PO PRN (19:12)
[2016-09-18] MEDS: HYDROcodone/Acetaminophen 10/325 mg Tablet PO SCH ×6 (00:46→22:13)
[2016-09-18] MEDS: traMADol HCl 50 MG TAB PO PRN ×3 (03:34→11:35)
[2016-09-18] MEDS: Cyclobenzaprine 10 MG TAB PO SCH ×3 (05:17→22:13)
[2016-09-18] MEDS: Enoxaparin Sodium 30 MG/0.3 ML SYRINGE SC SCH (05:17)
[2016-09-18] MEDS: Gabapentin 400 MG CAP PO SCH ×3 (09:07→22:12)
[2016-09-18] MEDS: Famotidine 20 MG TAB PO SCH ×2 (09:08→22:12)
[2016-09-18] MEDS: Docusate 100 MG CAP PO SCH (09:08)
[2016-09-18] MEDS: Clotrimazole 1% Cream 15 GM TUBE TOP SCH (09:26)
[2016-09-18] MEDS: Nystatin Cream 15 GM TUBE TOP SCH ×2 (09:26→22:15)
[2016-09-18] MEDS ORDERED: fentaNYL 50 mcg/hour Patch TD SCH (10:00)
[2016-09-18] MEDS: fentaNYL 50 mcg/hour Patch TD SCH (12:27)
[2016-09-19] MEDS: HYDROcodone/Acetaminophen 10/325 mg Tablet PO SCH ×6 (02:02→20:44)
[2016-09-19] MEDS: traMADol HCl 50 MG TAB PO PRN (04:44)
[2016-09-19] MEDS: Enoxaparin Sodium 30 MG/0.3 ML SYRINGE SC SCH (05:31)
[2016-09-19] MEDS: Cyclobenzaprine 10 MG TAB PO SCH ×3 (05:32→20:45)
[2016-09-19] MEDS: Gabapentin 400 MG CAP PO SCH ×3 (08:56→20:44)
[2016-09-19] MEDS: Famotidine 20 MG TAB PO SCH ×2 (08:58→20:44)
[2016-09-19] MEDS: Docusate 100 MG CAP PO SCH (08:58)
[2016-09-19] MEDS: Clotrimazole 1% Cream 15 GM TUBE TOP SCH (09:00)
[2016-09-19] MEDS: Nystatin Cream 15 GM TUBE TOP SCH ×2 (09:00→20:46)
[2016-09-20] MEDS: HYDROcodone/Acetaminophen 10/325 mg Tablet PO SCH ×6 (01:14→21:02)
[2016-09-20] MEDS: Cyclobenzaprine 10 MG TAB PO SCH ×3 (05:15→21:02)
[2016-09-20] MEDS: Enoxaparin Sodium 30 MG/0.3 ML SYRINGE SC SCH (05:17)
[2016-09-20] MEDS: Clotrimazole 1% Cream 15 GM TUBE TOP SCH (08:54)
[2016-09-20] MEDS: Docusate 100 MG CAP PO SCH (08:56)
[2016-09-20] MEDS: Gabapentin 400 MG CAP PO SCH ×3 (08:56→21:02)
[2016-09-20] MEDS: Famotidine 20 MG TAB PO SCH ×2 (08:58→21:02)
[2016-09-20] MEDS: traMADol HCl 50 MG TAB PO PRN (09:49)
[2016-09-20] MEDS: Nystatin Cream 15 GM TUBE TOP SCH ×2 (13:30→21:05)
[2016-09-21] MEDS: traMADol HCl 50 MG TAB PO PRN ×3 (00:11→22:34)
[2016-09-21] MEDS: HYDROcodone/Acetaminophen 10/325 mg Tablet PO SCH ×6 (00:58→21:04)
[2016-09-21] MEDS: Enoxaparin Sodium 30 MG/0.3 ML SYRINGE SC SCH (05:01)
[2016-09-21] MEDS: Cyclobenzaprine 10 MG TAB PO SCH ×3 (05:01→21:03)
[2016-09-21] MEDS: Clotrimazole 1% Cream 15 GM TUBE TOP SCH (08:51)
[2016-09-21] MEDS: Docusate 100 MG CAP PO SCH (08:53)
[2016-09-21] MEDS: Famotidine 20 MG TAB PO SCH ×2 (08:53→21:03)
[2016-09-21] MEDS: Gabapentin 400 MG CAP PO SCH ×3 (08:53→21:02)
[2016-09-21] MEDS: Nystatin Cream 15 GM TUBE TOP SCH ×2 (08:56→21:05)
[2016-09-21] MEDS: fentaNYL 50 mcg/hour Patch TD SCH (13:50)
[2016-09-21] MEDS ORDERED: HYDROcodone/Acetaminophen 10/325 mg Tablet PO SCH (14:15)
[2016-09-22] MEDS: HYDROcodone/Acetaminophen 10/325 mg Tablet PO SCH ×6 (01:10→20:57)
[2016-09-22] MEDS: Cyclobenzaprine 10 MG TAB PO SCH ×3 (05:07→20:59)
[2016-09-22] MEDS: Enoxaparin Sodium 30 MG/0.3 ML SYRINGE SC SCH (05:08)
[2016-09-22] MEDS: Clotrimazole 1% Cream 15 GM TUBE TOP SCH (08:32)
[2016-09-22] MEDS: Nystatin Cream 15 GM TUBE TOP SCH ×2 (08:33→21:00)
[2016-09-22] MEDS: Lantiseptic Ointment 130 GM JAR TOP PRN (08:33)
[2016-09-22] MEDS: Gabapentin 400 MG CAP PO SCH ×3 (08:35→20:56)
[2016-09-22] MEDS: Famotidine 20 MG TAB PO SCH ×2 (08:36→20:56)
[2016-09-22] MEDS: Docusate 100 MG CAP PO SCH (08:38)
[2016-09-22] MEDS: traMADol HCl 50 MG TAB PO PRN (19:37)
[2016-09-23] MEDS: HYDROcodone/Acetaminophen 10/325 mg Tablet PO SCH ×6 (01:06→20:59)
[2016-09-23] MEDS: Enoxaparin Sodium 30 MG/0.3 ML SYRINGE SC SCH (05:07)
[2016-09-23] MEDS: Cyclobenzaprine 10 MG TAB PO SCH ×3 (05:09→21:00)
[2016-09-23 05:29] VITALS: BMI 31.2
[2016-09-23] MEDS: Gabapentin 400 MG CAP PO SCH ×3 (08:30→21:00)
[2016-09-23] MEDS: Docusate 100 MG CAP PO SCH (08:30)
[2016-09-23] MEDS: Famotidine 20 MG TAB PO SCH ×2 (08:30→21:00)
[2016-09-23] MEDS: Nystatin Cream 15 GM TUBE TOP SCH ×2 (08:31→21:01)
[2016-09-23] MEDS: Clotrimazole 1% Cream 15 GM TUBE TOP SCH (08:31)
[2016-09-23] MEDS: Lantiseptic Ointment 130 GM JAR TOP PRN (08:31)
[2016-09-23] MEDS: traMADol HCl 50 MG TAB PO PRN ×2 (10:51→23:36)
[2016-09-24] MEDS: HYDROcodone/Acetaminophen 10/325 mg Tablet PO SCH ×6 (01:19→21:23)
[2016-09-24] MEDS: Cyclobenzaprine 10 MG TAB PO SCH ×3 (05:19→21:26)
[2016-09-24] MEDS: Enoxaparin Sodium 30 MG/0.3 ML SYRINGE SC SCH (05:19)
[2016-09-24] MEDS: Gabapentin 400 MG CAP PO SCH ×3 (08:48→21:22)
[2016-09-24] MEDS: Lantiseptic Ointment 130 GM JAR TOP PRN (08:49)
[2016-09-24] MEDS: Nystatin Cream 15 GM TUBE TOP SCH ×2 (08:50→21:27)
[2016-09-24] MEDS: Docusate 100 MG CAP PO SCH (08:50)
[2016-09-24] MEDS: Famotidine 20 MG TAB PO SCH ×2 (08:50→21:25)
[2016-09-24] MEDS: Clotrimazole 1% Cream 15 GM TUBE TOP SCH (08:50)
[2016-09-24] MEDS: fentaNYL 50 mcg/hour Patch TD SCH (14:22)
[2016-09-24] MEDS: traMADol HCl 50 MG TAB PO PRN ×2 (14:25→23:18)
[2016-09-25] MEDS: HYDROcodone/Acetaminophen 10/325 mg Tablet PO SCH ×6 (00:59→21:02)
[2016-09-25] MEDS: Enoxaparin Sodium 30 MG/0.3 ML SYRINGE SC SCH (05:15)
[2016-09-25] MEDS: Cyclobenzaprine 10 MG TAB PO SCH ×3 (05:15→21:00)
[2016-09-25] MEDS: Gabapentin 400 MG CAP PO SCH ×3 (08:41→21:01)
[2016-09-25] MEDS: Clotrimazole 1% Cream 15 GM TUBE TOP SCH (08:42)
[2016-09-25] MEDS: Docusate 100 MG CAP PO SCH (08:43)
[2016-09-25] MEDS: Famotidine 20 MG TAB PO SCH ×2 (08:46→21:00)
[2016-09-25] MEDS: traMADol HCl 50 MG TAB PO PRN ×2 (10:39→19:49)
[2016-09-25] MEDS: Nystatin Cream 15 GM TUBE TOP SCH ×2 (10:40→21:04)
[2016-09-26] MEDS: HYDROcodone/Acetaminophen 10/325 mg Tablet PO SCH ×6 (00:52→20:58)
[2016-09-26] MEDS: Cyclobenzaprine 10 MG TAB PO SCH ×3 (05:39→21:00)
[2016-09-26] MEDS: Enoxaparin Sodium 30 MG/0.3 ML SYRINGE SC SCH (06:33)
[2016-09-26] MEDS: Docusate 100 MG CAP PO SCH (09:41)
[2016-09-26] MEDS: Gabapentin 400 MG CAP PO SCH ×3 (09:41→20:58)
[2016-09-26] MEDS: Famotidine 20 MG TAB PO SCH ×2 (09:41→20:58)
[2016-09-26] MEDS: Clotrimazole 1% Cream 15 GM TUBE TOP SCH (09:47)
[2016-09-26] MEDS: Nystatin Cream 15 GM TUBE TOP SCH ×2 (09:48→21:00)
[2016-09-26] MEDS: traMADol HCl 50 MG TAB PO PRN (11:02)
[2016-09-27] MEDS: HYDROcodone/Acetaminophen 10/325 mg Tablet PO SCH ×6 (00:46→21:15)
[2016-09-27] MEDS: traMADol HCl 50 MG TAB PO PRN ×2 (03:35→17:05)
[2016-09-27] MEDS: Enoxaparin Sodium 30 MG/0.3 ML SYRINGE SC SCH (05:11)
[2016-09-27] MEDS: Cyclobenzaprine 10 MG TAB PO SCH ×3 (05:12→21:15)
[2016-09-27] MEDS: Gabapentin 400 MG CAP PO SCH ×3 (08:38→21:15)
[2016-09-27] MEDS: Famotidine 20 MG TAB PO SCH ×2 (08:39→21:15)
[2016-09-27] MEDS: Nystatin Cream 15 GM TUBE TOP SCH ×2 (08:40→21:16)
[2016-09-27] MEDS: Clotrimazole 1% Cream 15 GM TUBE TOP SCH (08:40)
[2016-09-27] MEDS: Docusate 100 MG CAP PO SCH (08:40)
[2016-09-27] MEDS: fentaNYL 50 mcg/hour Patch TD SCH (14:51)
[2016-09-28] MEDS: traMADol HCl 50 MG TAB PO PRN (00:06)
[2016-09-28] MEDS: HYDROcodone/Acetaminophen 10/325 mg Tablet PO SCH ×6 (00:59→20:43)
[2016-09-28] MEDS: Cyclobenzaprine 10 MG TAB PO SCH ×3 (05:05→20:42)
[2016-09-28] MEDS: Enoxaparin Sodium 30 MG/0.3 ML SYRINGE SC SCH (05:06)
[2016-09-28] MEDS: Clotrimazole 1% Cream 15 GM TUBE TOP SCH (08:36)
[2016-09-28] MEDS: Famotidine 20 MG TAB PO SCH ×2 (08:36→20:42)
[2016-09-28] MEDS: Nystatin Cream 15 GM TUBE TOP SCH ×2 (08:37→20:44)
[2016-09-28] MEDS: Docusate 100 MG CAP PO SCH (08:37)
[2016-09-28] MEDS: Gabapentin 400 MG CAP PO SCH ×3 (08:37→20:42)
[2016-09-29] MEDS: HYDROcodone/Acetaminophen 10/325 mg Tablet PO SCH ×4 (01:03→12:56)
[2016-09-29] MEDS: traMADol HCl 50 MG TAB PO PRN ×2 (03:23→11:21)
[2016-09-29] MEDS: Cyclobenzaprine 10 MG TAB PO SCH ×2 (05:20→12:59)
[2016-09-29] MEDS: Enoxaparin Sodium 30 MG/0.3 ML SYRINGE SC SCH (05:21)
[2016-09-29] MEDS: Famotidine 20 MG TAB PO SCH (09:12)
[2016-09-29] MEDS: Gabapentin 400 MG CAP PO SCH (09:12)
[2016-09-29] MEDS: Docusate 100 MG CAP PO SCH (09:12)
[2016-09-29] MEDS: Clotrimazole 1% Cream 15 GM TUBE TOP SCH (09:14)
[2016-09-29] MEDS: Nystatin Cream 15 GM TUBE TOP SCH (09:14)
[2016-09-29 11:27] VITALS: BP 99/58; TEMP 98
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
== END 2016-09-29 13:00 | DRG 561 ==
LOC: MADMS 13:33
PROVIDERS: ADMIT Family Medicine; ATTEND Family Medicine
DX: S32.401D Unspecified fracture of right acetabulum, subsequent encounter for fracture with routine healing (principal); D64.9 Anemia, unspecified; E78.5 Hyperlipidemia, unspecified; R53.1 Weakness; M51.36 Other intervertebral disc degeneration, lumbar region; S52.601D Unspecified fracture of lower end of right ulna, subsequent encounter for closed fracture with routine healing; S52.501D Unspecified fracture of the lower end of right radius, subsequent encounter for closed fracture with routine healing; S82.841D Displaced bimalleolar fracture of right lower leg, subsequent encounter for closed fracture with routine healing; S22.49XD Multiple fractures of ribs, unspecified side, subsequent encounter for fracture with routine healing; F41.9 Anxiety disorder, unspecified; F17.210 Nicotine dependence, cigarettes, uncomplicated; Z66 Do not resuscitate; K59.00 Constipation, unspecified; G47.00 Insomnia, unspecified; M48.06 Spinal stenosis, lumbar region; V43.52XD Car driver injured in collision with other type car in traffic accident, subsequent encounter
CPT/HCPCS: 36415; 36416; 80048; 80053; 81003; 85025; A4216; G8978-GP-CM; G8978-GP-CN; G8979-GP-CK; G8979-GP-CL; J1650; J2270; Q0162

== ENCOUNTER 2016-10-26 05:30 | Emergency (ER) | payer MEDICARE ==
[2016-10-26 06:19] LABS: #Eosinphils 0.4 thou/uL (0.0-0.7); #Lymphocytes 1.5 thou/uL (1.20-3.40); #Monocytes 0.5 thou/uL (0.11-0.59); #Neutrophils 3.9 thou/uL (1.40-6.50); %Basophils 0.7 % (0.0-1.0); %Eosinophils 6.3 % (0.0-10.0); %Lymphocytes 23.3 % (21.0-51.0); %Neutrophils 61.6 % (42.0-75.0); Hemoglobin 10.4 g/dL (12.0-16.0); Mean Corpuscular Hemoglobin 30.4 pg (27.0-31.0); Mean Platelet Volume 6.1 fL (7.4-10.4); Platelet Count 221 thou/uL (130-400); Red Blood Cell (RBC) Count 3.42 mill/uL (4.20-5.40); White Blood Cell (WBC) Count 6.3 thou/uL (4.8-10.8)
[2016-10-26 06:34] LABS: ALT (SGPT) 9 U/L (0-55); AST (SGOT) 19 U/L (5-34); Albumin 3.4 g/dL (3.4-4.8); Alkaline Phosphatase 154 U/L (40-150); Anion Gap 13 mmol/L (10-20); BUN (Urea Nitrogen) 15 mg/dL (9.8-20.1); Bilirubin, Total 0.3 mg/dL (0.2-1.2); Calc. Creatinine Clearance 0 mL/min (70-130); Calcium 8.9 mg/dL (7.8-10.44); Carbon Dioxide 28 mmol/L (23-31); Chloride 103 mmol/L (98-107); Estimated GFR-MDRD Greater than 90; Globulin 2.6 g/dL (2.4-3.5); Glucose 110 mg/dL (83-110); Potassium 3.9 mmol/L (3.5-5.1); Sodium 140 mmol/L (136-145)
--- NOTE | 2016-10-26 06:47 | PICIS ---
[facility] EMERGENCY RECORD TRIAGE (05:34 JDEA) TRIAGE NOTES: pt in for AMS. (05:34 JDEA) PATIENT: NAME: Neetu Sheffield V, AGE: 75, GENDER: female, : neno 1940, TIME OF GREET: Sun Oct 26, 2016 05:32, PREFERRED LANGUAGE: Polish, ETHNICITY: or , ECODE BILLING MAP: [facility], SSN: [id number], Zip Code: [address], KG WEIGHT: 74.84, PHONE: , , , PERSON ID: [id number], PCP: DO Mheta Hillary. (05:34 JDEA) COMPLAINT: FALL. (05:34 JDEA) ADMISSION: URGENCY: 3 Urgent, ADMISSION SOURCE: Skilled Nursing, TRANSPORT: AMBULANCE - [facility], BED: TRIAGE. (05:34 JDEA) IMMUNIZATIONS: Flu vaccine up to date, Tetanus immunization up to date, Pneumococcal vaccine up to date. (05:54 JDEA) TRIAGE SCREENING: Patient denies suicidal ideation, Patient denies presence of domestic violence. (05:54 JDEA) PROVIDERS: TRIAGE NURSE: Leah Cherry RN. (05:34 JDEA) VITAL SIGNS: BP 131/57, Pulse 89, Resp 16, Temp 98.2, (Oral), Pain 0, O2 Sat 95, on Room Air, Time 10/26/2016 05:32. (05:32 JDEA) PREVIOUS VISIT ALLERGIES: NSAIDS (Non-Steroidal Anti-Inflammatory Drug). (05:34 JDEA) NSAIDS (Non-Steroidal Anti-Inflammatory Drug). (05:54 JDEA) KNOWN ALLERGIES NSAIDS (Non-Steroidal Anti-Inflammatory Drug) CURRENT MEDICATIONS cyclobenzaprine: TABLET : Strength - 10 mg : ORAL Patient Dose: 1 tab(s) Oral every 8 hours. (05:40 JDEA) DULoxetine: CAPSULE,DELAYED RELEASE (ENTERIC COATED) : Strength - 60 mg : ORAL Patient Dose: 60 mg Oral 2 times a day (before meals). (05:40 JDEA) famotidine: TABLET : Strength - 20 mg : ORAL Patient Dose: 20 mg Oral 2 times a day (before meals). (05:41 JDEA) gabapentin: CAPSULE : Strength - 400 mg : ORAL Patient Dose: 800 mg Oral 3 times a day (with meals). (05:41 JDEA) HYDROcodone-acetaminophen: TABLET : Strength - 10 mg-325 mg : ORAL Patient Dose: 2 tab(s) Oral every 4 hours while awake. (05:42 JDEA) fentaNYL: PATCH, TRANSDERMAL 72 HOURS : Strength - 100 mcg/hour : TRANSDERMAL Patient Dose: 1 Patch Transdermal See Notes.every 72 hours. (05:44 JDEA) &a-1R&a+25V*p+0X*y4419R*c202B*c15G*c2P*p-0X&a-25V&a+1R Name: Neetu Sheffield V : 1940 F75 MedRec: [id number] AcctNum: [id number] Prepared: Mary Oct 26, 2016 09:50 by Interface Page 1 of 15 pMD [facility] EMERGENCY RECORD VITAL SIGNS VITAL SIGNS: BP: 131/57, Pulse: 89, Resp: 16, Temp: 98.2 (Oral), Pain: 0, O2 sat: 95 on Room Air, Time: 10/26/2016 05:32. (05:32 JDEA) BP: 124/59, Pulse: 88, Resp: 16, Pain: 0, O2 sat: 96 on RA, Time: 10/26/2016 06:48. (06:48 JDEA) BP: 131/63, Pulse: 114, Resp: 16, Temp: 98.2 (Tympanic), Pain: 0, O2 sat: 96 on Room Air, Time: 10/26/2016 07:30. (07:30 JPER) BP: 115/75, Pulse: 113, Resp: 18, Temp: 98.2 (Tympanic), O2 sat: 94 on Room Air, Time: 10/26/2016 08:30. (08:30 JPER) BP: 146/71, Pulse: 111, Resp: 18, Temp: 98.3 (Tympanic), O2 sat: 94 on Room Air, Time: 10/26/2016 09:30. (09:30 JPER) NURSING ASSESSMENT: FALL RISK (05:53 JDEA) FALL RISK: Fall risk assessment findings include: History of falls (5), No bed rest greater than 2 days (0), Use of level of consciousness altering agents with mentation or cognitive changes (3), No change in blood pressure (0), No sensory deficits (0), Impaired mobility (3), Neurologic diagnosis (3), No elimination problems (0), No confusion (0), Total score 14, Fall risk. NURSING ASSESSMENT: HEAD-TO-TOE (05:47 JDEA) CONSTITUTIONAL: Complex assessment performed, Patient arrives, via stretcher, via [facility], Unsteady gait, Lift to cart, History obtained from, [facility], Patient appears comfortable, Patient cooperative, Patient alert, Oriented to person, place and time, Skin warm, Skin dry, Skin normal in color, Mucous membranes pink, Mucous membranes moist, Patient complains of AMS, per EMS report, pt in for AMS, states that pt was attempting to dig through her dresser, states that she is alert however is acting different than usual. pt responds at this time appropriate, denies pain, no s/s acute distress noted at this time. PAIN: denies pain at this time. SKIN: Skin assessment findings include skin warm, Skin dry, Skin normal in color. NEURO: Pupils equally round and reactive to light, Left pupil 3 mm in size, Right pupil 4 mm in size, Able to close eyes, Face symmetrical, Speech normal, no ptosis, no nystagmus, Hand grasps equal, Upper extremity strength strong, Lower extremity strength strong, Foot press equal. ENT: Ear assessment findings include ear normal to inspection, Nasal assessment findings include nose normal to inspection, Sinuses normal, Nasal mucosa normal, Mouth and throat assessment findings include mouth inspection normal, Uvula normal, Tonsils normal, Mucous membranes pink, and moist, Able to swallow, Speech normal, no associated fever, no associated headache. NECK: Neck assessment findings include trachea midline, no jugular vein distention noted. &a-1R&a+25V*p+0X*x9229X*c202B*c15G*c2P*p-0X&a-25V&a+1R Name: Neetu Sheffield V : 1940 F75 MedRec: [id number] AcctNum: [id number] Prepared: Mary Oct 26, 2016 09:50 by Interface Page 2 of 15 pMD [facility] EMERGENCY RECORD BACK: Back assessment findings include no complaints of tenderness. RESPIRATORY/CHEST: Breath sounds clear, Respiratory assessment findings include respiratory effort easy, Respirations regular, Conversing normally, Neck and chest exam findings include trachea midline, Chest expansion equal, Chest movement symmetrical, no signs of distress. CARDIOVASCULAR: Cardiovascular assessment findings include heart rate normal, Heart rhythm normal sinus, Heart sounds normal, S1, S2, Left radial pulse +3(easily palpated, considered normal), Right radial pulse +3(easily palpated, considered normal). ABDOMEN: Abdomen assessment findings include abdomen symmetrical, Abdomen soft, non-tender, no associated nausea. GENITOURINARY FEMALE: Female genitourinary assessment findings include external genitalia normal. LEFT UPPER EXTREMITY: Left upper extremity assessment findings include capillary refill less than 2 seconds, Skin color normal to hand, Skin temperature to hand warm, Distal sensation intact, Muscle tone normal, no edema present. RIGHT UPPER EXTREMITY: Right upper extremity assessment findings include capillary refill less than 2 seconds, Skin color normal to hand, Skin temperature to hand warm, Distal sensation intact, Muscle tone normal, no edema present. LEFT LOWER EXTREMITY: Left lower extremity assessment findings include capillary refill less than 2 seconds, Skin color normal, Skin temperature warm, Distal sensation intact, Muscle tone normal, no edema present. RIGHT LOWER EXTREMITY: Right lower extremity assessment findings include capillary refill less than 2 seconds, Skin color normal, Skin temperature warm, Distal sensation intact, Muscle tone normal, no edema present. PSYCH/SOCIAL: Psychiatric/social assessment findings include affect normal. NOTES: Patient tolerated procedure well. SAFETY: Side rails up, Cart/Stretcher in lowest position, Call light within reach, Hospital ID band on. NURSING ASSESSMENT: NEURO (06:35 AWAT) GCS: (6) Obeying command:, (4) Confused conversation:, (4) Spontaneous eye opening., Result: 14. NIHSS: CVA assessment findings: Level of consciousness: not alert, requires repeated stimulation to attend (2), Questions: answers neither question correctly (2), Commands: performs both tasks correctly (0), Best gaze: partial gaze palsy (1), Visual: no visual loss (0), Facial palsy: minor paralysis (1), Motor Left Arm: no effort against gravity, arm falls (3), Motor Right Arm: drift, arm drifts down but does not hit bed or other support (1), Motor left leg: no effort against gravity, leg falls to bed or support (3), Motor right leg: drift, leg drifts down but does not hit bed or &a-1R&a+25V*p+0X*b8368N*c202B*c15G*c2P*p-0X&a-25V&a+1R Name: Neetu Sheffield V : 1940 F75 MedRec: [id number] AcctNum: [id number] Prepared: Mary Oct 26, 2016 09:50 by Interface Page 3 of 15 pMD [facility] EMERGENCY RECORD other support (1), Limb ataxia: present in two limbs (2), Sensory: mild to moderate sensory loss; patient feels pinprick is less sharp or is dull on the affected side; or there is a loss of superficial pain with pinprick, but patient is aware he/she is being touched (1), Best language: no aphasia; normal (0), Dysarthria: normal (0), Extinction and Inattention: visual, tactile, auditory, spatial or personal inattention or extinction to bilateral simultaneous simulation in one of the sensory modalities (1), Total score 18. CONSTITUTIONAL: Complex assessment performed, Patient arrives, via stretcher, via [facility], History obtained from, [facility], fdc record, Patient appears comfortable, Patient cooperative, Patient, responsive to verbal stimuli, Patient is, disoriented, Skin warm, Skin dry, Skin normal in color, Mucous membranes pink, Mucous membranes moist, Patient is well-groomed, Patient [facility] that pt walked out to the [facility], said she wasn't feeling well, then fell. She reportedly was assisted to the floor. Pt is guarding her left arm & says it hurts... PAIN: PT POINTS TO HER LEFT AC REGION FOR THE PAIN., Pain level 4 Hurts Little More, using faces pain scoring. NEURO: Neuro assessment findings include onset of symptoms: 10/26/2016 0600, Pupils equally round and reactive to light, Left pupil 2 mm in size, Right pupil 2 mm in size, Able to close eyes, Face asymmetrical, right greater than left, LEFT FACIAL DROOP, Speech normal, no visual changes, Facial droop, on the left, no facial numbness, no swelling, GCS:, Eye opening: (4) - Spontaneous, Verbal: (4) - Confused/disoriented, Motor: (6) - Obeys commands/Spontaneous, GCS Total: 14, Hand grasps unequal, right stronger than left, Upper extremity strength, moderately weak on the left, weak on the right, no numbness to upper extremities, Lower extremity strength, moderately weak on the left, weak on the right, Foot press unequal, right greater than left, no numbness to lower extremities, no associated dizziness present, Associated with weakness, GENERAL WEAKNESS. LEFT SIDE WEAKER THAN LEFT., Notes: PT IS A [facility] PT WITH HX OF DEMENTIA... DIFFICULT TO DETERMINE EXACT NEURO STATUS CHANGES WITH THIS HISTORY... ENT: Ear assessment findings include ear normal to inspection, Nasal assessment findings include nose normal to inspection, Mouth and throat assessment findings include mouth inspection normal. NOTES: Patient tolerated procedure well. SAFETY: Side rails up, Cart/Stretcher in lowest position, Call light within reach, Hospital ID band on, Physician notified of above findings. NURSING PROCEDURE: FOOD SUPERVISOR (05:44 JDEA) &a-1R&a+25V*p+0X*d0098O*c202B*c15G*c2P*p-0X&a-25V&a+1R Name: Neetu Sheffield V : 1940 F75 MedRec: [id number] AcctNum: [id number] Prepared: Mary Oct 26, 2016 09:50 by Interface Page 4 of 15 pMD [facility] EMERGENCY RECORD PATIENT IDENTIFIER: Patient actively involved in identification process, Patient's identity verified by hospital ID bracelet. FOOD SUPERVISOR: Cardiac monitoring indicated for ER indication, Patient placed on cardiac cath tech, Patient placed on non-invasive blood pressure monitor, Patient placed on continuous pulse oximetry. FOLLOW-UP: After procedure, alarms set and on. NOTES: Patient tolerated procedure well. SAFETY: Side rails up, Cart/Stretcher in lowest position, Call light within reach, Hospital ID band on. NURSING PROCEDURE: DISCHARGE NOTE (09:30 JPER) DISCHARGE: Patient discharged to fdc, [facility], Copy of chart sent to fdc with patient, in a wheelchair, Other, mode of transportation: [facility] STAFF, other, Patient accompanied by [facility] STAFF, Summary of Care printed/ provided, Patient requested and was provided an electronic copy of Discharge Instructions, Transition record given to patient, Prescriptions given and instructions on side effects given, Above person(s) verbalized understanding of discharge instructions and follow-up care, Patient treated and evaluated by physician. BELONGINGS: Belongings remain with patient, Valuables remain with patient. NOTES: Emotional support needed and given. NURSING PROCEDURE: IV PATIENT IDENITIFIER: Patient actively involved in identification process. (05:44 JDEA) Patient's identity verified by patient stating name, Patient's identity verified by hospital ID bracelet. (08:30 JPER) IV SITE 1: Notes: IV established COMPLIANCE TECHNICIAN 20 gauge left hand. (05:44 JDEA) IV SITE 2: IV therapy indicated for medication administration, IV established, to the right hand, using a 22 gauge catheter, in one attempt, IV site prepped with CHLOROPREP. (08:30 JPER) FOLLOW-UP SITE 1: After procedure, no drainage at IV site, After procedure, no swelling at IV site, After procedure, no redness at IV site, IV discontinued, due to pain at site, catheter intact. (08:30 JPER) FOLLOW-UP SITE 2: After procedure, sterile transparent dressing applied. (08:30 JPER) NURSING PROCEDURE: NURSE NOTES NURSES NOTES: Notes: Report to Jessica ZAPIEN at this time, denies needs for further information, pt states understands currently awaiting lab results and urine pending. denies needs for assist at this time. (06:48 JDEA) Notes: ASSUMED CARE OF THE PT AT THIS TIME. (06:45 JPER) Notes: VALERIA DEJESUS RECEIVED TELEPHONE REPORT; WILL HAVE PT READY FOR DC; [facility] TO COME GET PT. (09:13 JPER) VITAL SIGNS: BP: 124, / 59, Pulse: 88, Resp: 16, Pain: 0, O2 sat: &a-1R&a+25V*p+0X*a6682D*c202B*c15G*c2P*p-0X&a-25V&a+1R Name: Neetu Sheffield V : 1940 F75 MedRec: [id number] AcctNum: [id number] Prepared: ThuOct 26, 2016 09:50 by Interface Page 5 of 15 pMD [facility] EMERGENCY RECORD 96, on: RA, Time: 0648. (06:48 JDEA) NURSING PROCEDURE: TRANSPORT TO TESTS (06:54 JDEA) PATIENT IDENTIFIER: Patient actively involved in identification process, Patient's identity verified by hospital ID bracelet. TRANSPORT TO TESTS: Transport indicated to facilitate diagnosis, Patient transported to CT scan, via wheelchair, Accompanied by x-ray pharmacy technician inpatient. NOTES: Patient tolerated procedure well. ORDER DETAILS Order Name: CBC with Differential, Status: Active, Time: 06:00 10/26/2016, User: USHA, - Ordered for: MD Wu Lloyd, - Entered by: MD Wu Lloyd - Mary Oct 26, 2016 06:00, - Quantity: 1, Order Name: Comprehensive Metabolic Panel, Status: Active, Time: 06:00 10/26/2016, User: USHA, - Ordered for: MD Wu Lloyd, - Entered by: MD Wu Lloyd - Mary Oct 26, 2016 06:00, - Quantity: 1, Order Name: Culture, Urine, Status: Active, Time: 06:00 10/26/2016, User: USHA, - Ordered for: MD Wu Lloyd, - Entered by: MD Wu Lloyd - aMry Oct 26, 2016 06:00, - Quantity: 1, Order Name: SPLINT (PRE-CECILY), Status: Done, Time: 07:59 10/26/2016, User: CAMERON, - Ordered for: MD Wu Lloyd, - Entered by: MD Wu Lloyd - Mary Oct 26, 2016 06:03, - Quantity: 1, Order Name: Urinalysis w/ Rflx Microscopic, Status: Active, Time: 06:00 10/26/2016, User: USHA, - Ordered for: MD Wu Lloyd, - Entered by: MD Wu Lloyd - Mary Oct 26, 2016 06:00, - Quantity: 1, Order Name: XR Ankle Lt 3 View STANDARD, Status: Active, Time: 06:02 10/26/2016, User: USHA, - Ordered for: MD Wu Lloyd, - Entered by: MD Wu Lloyd - Sun Oct 26, 2016 06:02, - Quantity: 1, Order Name: XR Hip Lt 2-3 View STANDARD, Status: Active, Time: 06:02 10/26/2016, User: USHA, - Ordered for: MD Wu Lloyd, - Entered by: MD Wu Lloyd - Sun Oct 26, 2016 06:02, - Quantity: 1, Order Name: XR Knee Lt 4 View STANDARD, Status: Canceled, Time: 07:17 10/26/2016, User: System, - Ordered for: MD Wu Lloyd, &a-1R&a+25V*p+0X*i3491U*c202B*c15G*c2P*p-0X&a-25V&a+1R Name: Neetu Sheffield V : 1940 F75 MedRec: [id number] AcctNum: [id number] Prepared: ThuOct 26, 2016 09:50 by Interface Page 6 of 15 pMD [facility] EMERGENCY RECORD - Entered by: MD Wu Lloyd - Mary Oct 26, 2016 06:02, - Quantity: 1, Order Name: XR Pelvis AP STANDARD, Status: Active, Time: 06:02 10/26/2016, User: USHA, - Ordered for: MD Wu Lloyd, - Entered by: MD Wu Lloyd - Sun Oct 26, 2016 06:02, - Quantity: 1. MEDICATION ADMINISTRATION SUMMARY Drug Name: cefTRIAXone injection, Dose Ordered: 1 g, Route: IV Piggy Back, Status: Given, Time: 08:18 10/26/2016, Detailed record available in Medication Service section. MEDICATION SERVICE cefTRIAXone injection: Order: cefTRIAXone injection (ceftriaxone sodium) - Dose: 1 g : IV Piggy Back Ordered by: Jose Elias Walker MD Entered by: MD Mary Anne Oct 26, 2016 08:03 Documented as given by: Jessica Hutchison RN ThuOct 26, 2016 08:18 Patient, Medication, Dose, Route and Time verified prior to administration. Amount given: 1GM, IV SITE #1 IVPB or drip, initial infusion, IVPB mixed in: 100ml, Fluid: 0.9NS, via primary tubing, at 200 ml/hr, Catheter placement confirmed via flush prior to administration, IV site without signs or symptoms of infiltration during medication administration, No swelling during administration, No drainage during administration, IV flushed after administration, Correct patient, time, route, dose and medication confirmed prior to administration, Patient advised of actions and side-effects prior to administration, Allergies confirmed and medications reviewed prior to administration, Administered by SHANTI ZAPIEN, Patient in position of comfort, Side rails up, Cart in lowest position, Family at bedside. : Follow Up : _IV SITE #1:_, Medication infusion discontinued, on ThuOct 26, 2016 09:00, 45 minutes, ., Total amount infused: 100ML, IV Discontinued with catheter intact. (09:27 JPER) HPI FALL (06:09 LLDO) CHIEF COMPLAINT: Patient presents for evaluation of fall, Patient presents for evaluation of [facility], but i find absolutely no evidence of her being altered at all. her thinking is clear and her memory is ;very sharp and correct. she details a fall tonight because her stockinged feet slipped on a waxed floor. then she details very clearly an argument with the nurse who declared the pt was altered and then called the EMS. Neither the ems nor anyone here have found any evidence of an altered mental status with this pt. HISTORIAN: History provided by patient, Additional history obtained from EMS, pt says she is having new pain in left lower extremity starting at the hip and continuing down to the knee and ankle. she cogently &a-1R&a+25V*p+0X*o5374U*c202B*c15G*c2P*p-0X&a-25V&a+1R Name: Neetu Sheffield V : 1940 F75 MedRec: [id number] AcctNum: [id number] Prepared: Mary Oct 26, 2016 09:50 by Interface Page 7 of 15 pMD [facility] EMERGENCY RECORD tells of previous falls and injuries. LOCATION: Symptoms are localized, most severe to see above. QUALITY: Pain is dull in nature, described as aching, described as BECOMES SHARP WITH MOVEMENT OR PALPATION. TIME COURSE: Sudden onset of symptoms, just prior to arrival, Symptoms are worsening, are constant. SEVERITY: Maximum severity of symptoms moderate, Currently symptoms are moderate. ASSOCIATED WITH: Associated with hip pain, on the left, Associated with knee pain, on the left, Associated with ankle pain, on the left, Associated with contusion(s), No associated headache, No associated hematemesis, No associated hematuria, No associated hemoptysis, No associated loss of consciousness, pain with standing and trying to walk. EXACERBATED BY: Patient's condition exacerbated by walking, Patient's condition exacerbated by bearing weight. RELIEVED BY: Patient's condition relieved by elevation, Patient's condition relieved by rest. RISK FACTORS: Risk factors for spinal injury, include severe osteoarthritis, Risk factors for intracranial bleed, include age very old. ROS CONSTITUTIONAL: Historian reports fatigue. (06:22 LLDO) EYES: Negative eye review of systems, Historian denies eye pain, denies eye redness, denies eye discharge. (06:27 LLDO) ENT: Negative ears, nose, throat review of systems, Historian denies epistaxis, denies rhinorrhea, denies sinus pain, denies sore throat. (06:27 LLDO) CARDIOVASCULAR: Negative cardiovascular review of systems, Historian denies chest pain, no radiation, Historian denies diaphoresis, denies syncope. (06:27 LLDO) RESPIRATORY: Negative respiratory review of systems, Historian denies cough, denies shortness of breath, denies sputum. (06:27 LLDO) GI: Negative gastrointestinal review of systems, Historian denies abdominal pain, denies constipation, denies diarrhea, denies nausea, denies vomiting. (06:27 LLDO) GENITOURINARY FEMALE: Negative genitourinary review of systems, Historian denies dysuria, denies frequency, denies urgency. (06:27 LLDO) MUSCULOSKELETAL: Historian reports arthralgias, reports fall, reports injury, reports joint stiffness, reports joint swelling, reports myalgias. (06:22 LLDO) SKIN: Negative skin review of systems, Historian denies cellulitis, denies rash, denies skin changes, denies skin lesions. (06:27 LLDO) NEUROLOGIC: Negative neurologic review of systems, Historian &a-1R&a+25V*p+0X*z9219N*c202B*c15G*c2P*p-0X&a-25V&a+1R Name: Neetu Sheffield V : 1940 F75 MedRec: [id number] AcctNum: [id number] Prepared: Mary Oct 26, 2016 09:50 by Interface Page 8 of 15 pMD [facility] EMERGENCY RECORD denies confusion, denies dizziness, denies focal weakness, denies mental status changes. (06:27 LLDO) HEMO/LYMPHATIC: Normal hematologic/lymphatic system review, Historian denies abnormal blood clotting, denies gum bleeding, denies petechiae. (06:27 LLDO) ALLERGIC/IMMUNOLOGIC: Normal allergy/immunologic system review, Historian denies eczema, denies environmental allergies, denies food allergies. (06:27 LLDO) PSYCHIATRIC: Negative psychiatric review of systems, Historian denies alcohol abuse, denies anxiety, denies depression, denies drug abuse, denies hallucinations. (06:27 LLDO) NOTES: All systems reviewed, negative except as described above. (06:22 LLDO) PAST MEDICAL HISTORY MEDICAL HISTORY: Notes: STOMACH ULCER, CHRONIC BACK PAIN, Past medical history includes gastrointestinal disease, hiatal hernia, Past medical history includes history of hyperlipidemia, Past medical history includes history of hypertension. (05:54 JDEA) FEMALE SURGICAL HISTORY: Surgical history of tubal ligation. (05:54 JDEA) PSYCHIATRIC HISTORY: Notes: ANXIETY/DEPRESSION. (05:54 JDEA) SOCIAL HISTORY: Patient currently uses tobacco, Patient smokes cigarettes, Patient smokes 1/2 pack per day, Patient currently uses tobacco, Patient denies alcohol use, Patient denies drug use. (05:54 JDEA) NOTES: Nursing records reviewed, Agree with nursing records, Medication list reviewed. (06:26 LLDO) PHYSICAL EXAM CONSTITUTIONAL: Vital signs reviewed, Patient afebrile, Pulse normal, Blood pressure normal, Respiratory rate normal, Patient appears, uncomfortable, Patient appears in pain, in moderate pain distress, INTERMITTENTLY SEVERE, Patient alert and oriented to person, place and time. (06:23 LLDO) HEAD: Head exam normal, Head exam included findings of head atraumatic, normocephalic. (06:27 LLDO) EYES: Eye exam normal, Eye exam included findings of eyelids normal to inspection, Pupils equally round and reactive to light, Extraocular muscles intact. (06:27 LLDO) ENT: ENT exam normal, Ear exam normal, Nose exam normal. (06:27 LLDO) NECK: Neck exam normal, Neck exam included findings of normal range of motion, Trachea midline, no meningeal signs, no tenderness. (06:27 LLDO) RESPIRATORY CHEST: Respiratory and chest exam normal, Respiratory exam included findings of, Chest exam included findings of chest movement symmetrical, Chest expansion equal. (06:27 &a-1R&a+25V*p+0X*b6176U*c202B*c15G*c2P*p-0X&a-25V&a+1R Name: Neetu Sheffield V : 1940 F75 MedRec: [id number] AcctNum: [id number] Prepared: Mary Oct 26, 2016 09:50 by Interface Page 9 of 15 pMD [facility] EMERGENCY RECORD LLDO) CARDIOVASCULAR: Cardiovascular assessment normal, Cardiovascular exam included findings of heart rate regular rate and rhythm, Heart sounds normal. (06:27 LLDO) ABDOMEN FEMALE: Abdominal exam normal, Abdominal exam included findings of abdomen nontender, Bowel sounds normal, no peritoneal signs. (06:27 LLDO) BACK: Back exam normal, Back exam included findings of normal inspection, range of motion normal. (06:27 LLDO) UPPER EXTREMITY: Upper extremity exam included findings of inspection normal, range of motion normal, Radial pulse normal, Ulnar pulse normal, capillary refill less than 2 seconds, distal motor intact, distal sensory intact, does c/o right wrist tenderness from a previous injury. says she had a very helpful [facility], [facility] (06:23 LLDO) LOWER EXTREMITY: Left pelvis exam included findings of, tenderness, Right pelvis exam normal, Left hip exam included findings of, swelling, tenderness, active range of motion abnormal, passive range of motion abnormal, distal pulses intact, capillary refill less than 2 seconds, distal motor intact, distal sensory intact, Left thigh exam included findings of, tenderness, Right thigh unaffected, Left knee exam included findings of, swelling, tenderness, active range of motion abnormal, passive range of motion abnormal, distal pulses intact, capillary refill less than 2 seconds, distal motor intact, distal sensory intact, Left ankle exam included findings of, tenderness, active range of motion abnormal, passive range of motion abnormal, tendon function normal, distal pulses intact, capillary refill less than 2 seconds, distal motor intact, distal sensory intact, SEE HPI FOR PAIN AREAS. (06:23 LLDO) NEURO: Neuro exam normal, Neuro exam findings include patient oriented to person, place and time, Speech normal, Rishi coma scale 15. (06:27 LLDO) SKIN: Skin exam normal, Skin exam included findings of skin warm, dry, and normal in color, no rash. (06:27 LLDO) PSYCHIATRIC: Psychiatric exam normal, Psychiatric exam included findings of patient oriented to person place and time, Normal affect. (06:27 LLDO) EVENTS TRANSFER: Triage to Emergency Triage. (Mary Oct 26, 2016 05:34 JDEA) Emergency Triage to Main ED -01. (05:47 LLDO) Removed from Emergency Main ED -01. (09:38 JPER) RADIOLOGYINTERPRETATION (07:40 RWAG) LOWER EXTREMITIES: Films of the pelvis show, Other findings: healing left acetabular fracture; no acute findings, Hip &a-1R&a+25V*p+0X*[id number]*c202B*c15G*c2P*p-0X&a-25V&a+1R Name: Neetu Sheffield V : 1940 F75 MedRec: [id number] AcctNum: [id number] Prepared: Mary Oct 26, 2016 09:50 by Interface Page 10 of 15 pMD [facility] EMERGENCY RECORD films, of the left hip show, Other findings: healing fracture left hip; no acute findings, Knee films negative, on the left, no fracture, no dislocation, no foreign body, no bony lesion, no degenerative joint disease, no effusion, Ankle films negative, on the left, no fracture, no dislocation, no foreign body, no bony lesion, no degenerative joint disease, Mortise normal. DOCTOR NOTES (06:28 LLDO) SIGN OUT: Patient signed out to, Dr. Walker. PROBLEM LIST No recorded problems DIAGNOSIS (08:04 RWAG) FINAL: PRIMARY: Lower leg contusion, ADDITIONAL: UTI. DISPOSITION PATIENT: Disposition Type: Discharge, Disposition: *Discharge Home, Disposition Transport: Ambulance, Condition: Improved. (07:53 RWAG) Patient left the department. (09:38 JPER) INSTRUCTION (08:05 RWAG) DISCHARGE: CONTUSION, LOWER EXTREMITY, UTI CYSTITIS FEMALE ADULT. FOLLOWUP: DO Mehta Hillary, [facility], [address] [facility] [address], , Follow up with Primary Care Physician as needed. SPECIAL: Follow-up with your PCP. PRESCRIPTION (08:04 RWAG) Bactrim DS: TABLET : 800 mg-160 mg : ORAL : Quantity: 1 Unit: tab(s) Route: ORAL Schedule: every 12 hours Dispense: 14 Unit: tab(s) May substitute. Refills: No Refills . NOTES: No Refills. IMAGING *DISCHARGE INSTRUCTIONS RECEIPT: Image captured from scanner. (09:32 JPER) *SUPPLY CHARGE SHEET: Image captured from scanner. (09:32 JPER) DME: Image captured from scanner. (09:33 JPER) [place] NOTES: Image captured from scanner. (09:33 JPER) Page 2 added. Image captured from scanner. (09:34 JPER) Page 3 added. Image captured from scanner. (09:34 JPER) Page 4 added. Image captured from scanner. (09:34 JPER) Page 5 added. Image captured from scanner. (09:34 JPER) Page 6 added. Image captured from scanner. (09:34 JPER) Page 7 added. Image captured from scanner. (09:34 JPER) &a-1R&a+25V*p+0X*[id number]*c202B*c15G*c2P*p-0X&a-25V&a+1R Name: Neetu Sheffield V : 1940 F75 MedRec: [id number] AcctNum: [id number] Prepared: Mary Oct 26, 2016 09:50 by Interface Page 11 of 15 pMD [facility] EMERGENCY RECORD Page 8 added. Image captured from scanner. (09:34 JPER) Page 9 added. Image captured from scanner. (09:35 JPER) Page 10 added. Image captured from scanner. (09:35 JPER) Page 11 added. Image captured from scanner. (09:35 JPER) Page 12 added. Image captured from scanner. (09:35 JPER) Page 13 added. Image captured from scanner. (09:36 JPER) ADMIN DIGITAL SIGNATURE: MD Bryce, Vadim. (06:29 LLDO) CURRY Hutchison, Jessica. (09:38 JPER) RESULTS RADIOLOGY: XR Pelvis AP STANDARD Observe DT: ThuOct 26, 2016 06:04, PEL SINGLE VIEW OF THE PELVIS: COMPARISON: 08/01/16. HISTORY: Fall with pelvic pain. FINDINGS: A single view of the pelvis shows healing fractures of the left acetabulum and right parasymphyseal region of the pelvis with surrounding sclerosis. There is impaction of the left femoral head with m oderate to severe posttraumatic osteoarthritic change of the left hip. There is no evidence of acut e fracture or dislocation. IMPRESSION: Healing fractures of the pelvis with severe left hip posttraumatic osteoarthritis. POS: [facility] . (08:26 RWAG) XR Hip Lt 2-3 View Observe DT: ThuOct 26, 2016 06:03, HIP2L TWO VIEWS OF THE LEFT HIP: COMPARISON: 08/01/16. HISTORY: Fall with left hip pain. FINDINGS: Two views of the left hip show a healing fracture of the acetabulum. &a-1R&a+25V*p+0X*l7403J*c202B*c15G*c2P*p-0X&a-25V&a+1R Name: Neetu Sheffield V : 1940 F75 MedRec: [id number] AcctNum: [id number] Prepared: ThuOct 26, 2016 09:50 by Interface Page 12 of 15 pMD [facility] EMERGENCY RECORD There is significant surroundi ng sclerosis to suggest healing. The femoral head shows sclerosis. There is joint space narrowing and osteophyte formation in the left hip joint consistent with posttraumatic osteoarthritis. No acu te fracture or dislocation is seen. IMPRESSION: Healing acetabular fracture with posttraumatic osteoarthritis of the left hip. POS: [facility] . (08:26 RWAG) XR Ankle Lt 3 View STANDARD Observe DT: ThuOct 26, 2016 06:04, ANK3L THREE VIEWS LEFT ANKLE: COMPARISON: None. HISTORY: Fall with left ankle pain. FINDINGS: Three views of the left ankle show mild diffuse soft tissue swelling. No fracture or dislocation ar e seen. No degenerative changes are present. IMPRESSION: No evidence of acute osseous abnormality. POS: [facility] . (08:26 [facility]) XR Knee Lt 2 View Observe DT: [place] Oct 26, 2016 06:04, KNEE2L TWO VIEWS OF THE LEFT KNEE: COMPARISON: Fall with left knee pain. FINDINGS: Two views of the left knee show screws in the patella from prior patella fracture repair. There is no evidence of acute fracture or dislocation. Bilateral prepatellar soft tissue swelling is seen. IMPRESSION: No evidence of acute osseous abnormality. POS: [facility] &a-1R&a+25V*p+0X*a6642I*c202B*c15G*c2P*p-0X&a-25V&a+1R Name: Neetu Sheffield V : 1940 F75 MedRec: [id number] AcctNum: [id number] Prepared: [place] Oct 26, 2016 09:50 by Interface Page 13 of 15 pMD [facility] EMERGENCY RECORD . (08:26 [facility]) LABORATORY: Comprehensive Metabolic Panel Collection DT: [place] Oct 26, 2016 06:12, Sodium 140 mmol/L, Range (136-145), Potassium 3.9 mmol/L, Range (3.5-5.1), Chloride 103 mmol/L, Range (98-107), Carbon Dioxide 28 mmol/L, Range (23-31), Anion Gap 13 mmol/L, Range (10-20), BUN (Urea Nitrogen) 15 mg/dL, Range (9.8-20.1), Creatinine 0.61 mg/dL, Range (0.6-1.1), Estimated GFR-MDRD Greater than 90 , Reference Range for Estimated GFR: Greater than 90, mL/min/1.73 m2 NOTE: The MDRD equation has not been validated for use, with the elderly (over 70 years of age), women, patients with, serious comorbid condition or persons with extremes of body size, muscle, mass, or nutritional status. , Glucose 110 mg/dL, Range (83-110), Calcium 8.9 mg/dL, Range (7.8-10.44), Bilirubin, Total 0.3 mg/dL, Range (0.2-1.2), Protein, Total 6.0 g/dL, Range (5.8-8.1), NOTE: Plasma values are generally 0.3 to 0.5 g/dL higher than serum values, due to the presence of fibrinogen. , Albumin 3.4 g/dL, Range (3.4-4.8), Globulin 2.6 g/dL, Range (2.4-3.5), Alb/Glob Ratio 1.3 g/dL, Range (1.2-2.2), *Alkaline Phosphatase 154 - H U/L, Range (40-150), AST (SGOT) 19 U/L, Range (5-34), ALT (SGPT) 9 U/L, Range (0-55). (06:47 [facility]) CBC with Differential Collection DT: Mary Oct 26, 2016 06:12, White Blood Cell (WBC) Count 6.3 thou/uL, Range (4.8-10.8), *Red Blood Cell (RBC) Count 3.42 - L mill/uL, Range (4.20-5.40), *Hemoglobin 10.4 - L g/dL, Range (12.0-16.0), *Hematocrit 32.5 - L %, Range (36.0-47.0), Mean Corpuscular Volume 95.0 fl, Range (81.0-99.0), Mean Corpuscular Hemoglobin 30.4 pg, Range (27.0-31.0), Mean Corpuscular HGB CONC 32.0 g/dL, Range (32.0-36.0), *RBC Distribution Width 15.0 - H %, Range (11.5-14.5), Platelet Count 221 thou/uL, Range (130-400), *Mean Platelet Volume 6.1 - L fL, Range (7.4-10.4), %Neutrophils 61.6 %, Range (42.0-75.0), %Lymphocytes 23.3 %, Range (21.0-51.0), %Monocytes 8.0 %, Range (0.0-10.0), %Eosinophils 6.3 %, Range (0.0-10.0), %Basophils 0.7 %, Range (0.0-1.0), #Neutrophils 3.9 thou/uL, Range (1.40-6.50), #Lymphocytes 1.5 thou/uL, Range (1.20-3.40), &a-1R&a+25V*p+0X*e6260T*c202B*c15G*c2P*p-0X&a-25V&a+1R Name: Neetu Sheffield V : 1940 F75 MedRec: [id number] AcctNum: [id number] Prepared: ThuOct 26, 2016 09:50 by Interface Page 14 of 15 pMD [facility] EMERGENCY RECORD #Monocytes 0.5 thou/uL, Range (0.11-0.59), #Eosinphils 0.4 thou/uL, Range (0.0-0.7), #Basophils 0.0 thou/uL, Range (0.0-0.2). (06:47 RW) Urine Microscopic Collection DT: [place] Oct 26, 2016 07:58, See comment below , Comment please do micro . (08:02 RWAG) Urinalysis w/ Rflx Microscopic Collection DT: [place] Oct 26, 2016 07:58, See comment below , Comment please do micro , Color Yellow , Range (Yellow), Clarity Cloudy , Range (Clear), Specific Zirconia, Urine 1.015 , Range (1.005-1.030), pH, Urine 8.5 , Range (5.0-9.0), *Leukocyte Small - H , Range (Negative), *Nitrite Positive - H , Range (Negative), *Protein, Urine (Dipstick) 100 - H mg/dL, Range (Neg-Trace), Glucose, Urine (Dipstick) Negative mg/dL, Range (Negative), Ketone, Urine Negative mg/dL, Range (Negative), Urobilinogen 0.2 mg/dL, Range (0.2-1.0), Bilirubin Negative , Range (Negative), Blood, Urine Negative , Range (Negative). (08:02 RWAG) Urine Microscopic Collection DT: [place] Oct 26, 2016 07:58, See comment below , Comment please do micro , RBC/HPF None Seen HPF, Range (0-3), *WBC/HPF 4-6 - H HPF, Range (0-3), Squamous Epithelial 0-3 HPF, Range (0-3), *Bacteria/HPF 2+ - H HPF, Range (None Seen). (08:05 RW) Urinalysis w/ Rflx Microscopic Collection DT: ThuOct 26, 2016 07:58, See comment below , Comment please do micro , Color Yellow , Range (Yellow), Clarity Cloudy , Range (Clear), Specific Zirconia, Urine 1.015 , Range (1.005-1.030), pH, Urine 8.5 , Range (5.0-9.0), *Leukocyte Small - H , Range (Negative), *Nitrite Positive - H , Range (Negative), *Protein, Urine (Dipstick) 100 - H mg/dL, Range (Neg-Trace), Glucose, Urine (Dipstick) Negative mg/dL, Range (Negative), Ketone, Urine Negative mg/dL, Range (Negative), Urobilinogen 0.2 mg/dL, Range (0.2-1.0), Bilirubin Negative , Range (Negative), Blood, Urine Negative , Range (Negative). (08:05 RW) Dai: AWAT=CURRY Johnson, Anthony STEVENS=CURRY Cherry, Leah BARNES=CURRY Hutchison, Jessica KERR=MD Bryce, Vadim RWAG=MD Aaron, Jose Elias &a-1R&a+25V*p+0X*c2384O*c202B*c15G*c2P*p-0X&a-25V&a+1R Name: Neetu Sheffield V : 1940 F75 MedRec: [id number] AcctNum: [id number] Prepared: ThuOct 26, 2016 09:50 by Interface Page 15 of 15 pMD [facility] MEDICATION RECONCILIATION You were seen in the Emergency Department on: ThuOct 26, 2016 KNOWN ALLERGIES NSAIDS (Non-Steroidal Anti-Inflammatory Drug) MEDICATIONS GIVEN WHILE IN THE EMERGENCY DEPARTMENT cefTRIAXone injection (ceftriaxone sodium) - Dose: 1 gram(s) : IV Piggy Back HOME MEDICATIONS CONTINUE PRESCRIBED cyclobenzaprine : TABLET : Strength - 10 mg : ORAL Continue as prescribed Patient had been takin tab(s) Oral every 8 hours. DULoxetine : CAPSULE,DELAYED RELEASE (ENTERIC COATED) : Strength - 60 mg : ORAL Continue as prescribed Patient had been takin mg Oral 2 times a day (before meals). famotidine : TABLET : Strength - 20 mg : ORAL Continue as prescribed Patient had been takin mg Oral 2 times a day (before meals). fentaNYL : PATCH, TRANSDERMAL 72 HOURS : Strength - 100 mcg/hour : TRANSDERMAL Continue as prescribed Patient had been takin Patch Transdermal See Notes. Comment: every 72 hours. gabapentin : CAPSULE : Strength - 400 mg : ORAL Continue as prescribed Patient had been takin mg Oral 3 times a day (with meals). HYDROcodone-acetaminophen : TABLET : Strength - 10 mg-325 mg : ORAL Continue as prescribed Patient had been takin tab(s) Oral every 4 hours while awake. Notes from the emergency department Reviewed with PCP &a-1R&a+25V*p+0X*m7595Z*c202B*c15G*c2P*p-0X&a-25V&a+1R Name: Argenis Sheffieldmoises [place] : 1940 75 MedRec: [id number] AcctNum: [id number] Prepared: Mary Oct 26, 2016 09:50 by Interface pMD [facility] MEDICATION RECONCILIATION PRESCRIPTIONS (1) &a-1R&a+25V*p+0X*a2626Z*c202B*c15G*c2P*p-0X&a-25V&a+1R Name: Yohannes Neetu [place] : 1940 F75 MedRec: [id number] AcctNum: [id number] Prepared: Mary Oct 26, 2016 09:50 by Interface pMD [facility]
[2016-10-26] MEDS ORDERED: Sodium Chloride 0.9% 100 ML BAG ONE (07:18)
--- NOTE | 2016-10-26 07:37 | RAD ---
TWO VIEWS OF THE LEFT KNEE: COMPARISON: Fall with left knee pain. FINDINGS: Two views of the left knee show screws in the patella from prior patella fracture repair. There is no evidence of acute fracture or dislocation. Bilateral prepatellar soft tissue swelling is seen. IMPRESSION: No evidence of acute osseous abnormality. POS: [facility]
--- NOTE | 2016-10-26 07:42 | RAD ---
THREE VIEWS LEFT ANKLE: COMPARISON: None. HISTORY: Fall with left ankle pain. FINDINGS: Three views of the left ankle show mild diffuse soft tissue swelling. No fracture or dislocation ar e seen. No degenerative changes are present. IMPRESSION: No evidence of acute osseous abnormality. POS: [facility]
[2016-10-26 08:00] LABS: Bilirubin Negative (Negative); Blood, Urine Negative (Negative); Clarity Cloudy (Clear); Glucose, Urine (Dipstick) Negative (Negative); Leukocyte Small (Negative); Nitrite Positive (Negative); Protein, Urine (Dipstick) 100 mg/dL (Neg-Trace); Specific Gravity, Urine 1.015 (1.005-1.030); Urobilinogen 0.2 mg/dL (0.2-1.0); pH, Urine 8.5 (5.0-9.0)
[2016-10-26 08:01] LABS: Bacteria/HPF 2+ HPF (None Seen); RBC/HPF None Seen HPF (0-3); Squamous Epithelial 0-3 HPF (0-3)
[2016-10-26 08:02] LABS: Crystals/HPF RARE TRIPLE PHOS HPF (Negative)
--- NOTE | 2016-10-26 08:12 | RAD ---
TWO VIEWS OF THE LEFT HIP: COMPARISON: 08/01/16. HISTORY: Fall with left hip pain. FINDINGS: Two views of the left hip show a healing fracture of the acetabulum. There is significant surroundi ng sclerosis to suggest healing. The femoral head shows sclerosis. There is joint space narrowing and osteophyte formation in the left hip joint consistent with posttraumatic osteoarthritis. No acu te fracture or dislocation is seen. IMPRESSION: Healing acetabular fracture with posttraumatic osteoarthritis of the left hip. POS: [facility]
--- NOTE | 2016-10-26 08:15 | RAD ---
SINGLE VIEW OF THE PELVIS: COMPARISON: 08/01/16. HISTORY: Fall with pelvic pain. FINDINGS: A single view of the pelvis shows healing fractures of the left acetabulum and right parasymphyseal region of the pelvis with surrounding sclerosis. There is impaction of the left femoral head with m oderate to severe posttraumatic osteoarthritic change of the left hip. There is no evidence of acut e fracture or dislocation. IMPRESSION: Healing fractures of the pelvis with severe left hip posttraumatic osteoarthritis. POS: [facility]
[2016-10-26] MEDS ORDERED: cefTRIAXone\\ROCEPHIN 1 GM VIAL ONE (08:20)
[2016-10-27] MEDS ORDERED: Sodium Chloride 0.9% 100 ML BAG ONE (05:30)
== END 2016-10-26 09:30 ==
LOC: MADERS 05:30
DX: S80.12XA Contusion of left lower leg, initial encounter (principal); N39.0 Urinary tract infection, site not specified; W19.XXXA Unspecified fall, initial encounter
CPT/HCPCS: 36415; 72170; 80053; 81003; 81015; 85025; 87077; 87086; 87186; 96365; A4353; J0696; J7050

== ENCOUNTER 2017-06-01 12:25 | Inpatient (IN) | payer MEDICARE ==
[2017-06-01] MEDS ORDERED: HYDROcodone/Acetaminophen 7.5/325 mg Tablet PO SCH (15:30)
[2017-06-01] MEDS ORDERED: HYDROcodone/Acetaminophen 7.5/325 mg Tablet PO PRN (15:32)
[2017-06-01] MEDS: Cyclobenzaprine 10 MG TAB PO PRN ×2 (16:24→22:06)
[2017-06-01] MEDS: Ferrous Sulfate 325 MG TAB PO SCH (16:24)
[2017-06-01] MEDS ORDERED: Docusate 100 MG CAP PO PRN (17:07)
[2017-06-01] MEDS: Gabapentin 400 MG CAP PO SCH (19:48)
[2017-06-01] MEDS: HYDROcodone/Acetaminophen 7.5/325 mg Tablet PO PRN (19:48)
[2017-06-01] MEDS: Metoprolol Tartrate 25 MG TAB PO SCH (19:48)
[2017-06-01] MEDS: Lorazepam 0.5 MG TAB PO PRN (22:06)
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
[2017-06-02] MEDS: Ferrous Sulfate 325 MG TAB PO SCH ×2 (09:05→17:09)
[2017-06-02] MEDS: Gabapentin 400 MG CAP PO SCH ×3 (09:05→20:51)
[2017-06-02] MEDS: Metoprolol Tartrate 25 MG TAB PO SCH ×2 (09:05→20:51)
[2017-06-02] MEDS: Enoxaparin Sodium 40 MG/0.4 ML SYRINGE SC SCH (09:06)
[2017-06-02] MEDS: HYDROcodone/Acetaminophen 7.5/325 mg Tablet PO PRN ×3 (13:11→20:51)
[2017-06-02] MEDS: Cyclobenzaprine 10 MG TAB PO PRN ×2 (15:46→20:51)
[2017-06-03] MEDS: HYDROcodone/Acetaminophen 7.5/325 mg Tablet PO PRN ×4 (06:42→21:22)
[2017-06-03] MEDS: Metoprolol Tartrate 25 MG TAB PO SCH ×2 (08:51→20:33)
[2017-06-03] MEDS: Gabapentin 400 MG CAP PO SCH ×3 (08:51→20:33)
[2017-06-03] MEDS: Lorazepam 0.5 MG TAB PO PRN (08:56)
[2017-06-03] MEDS: Cyclobenzaprine 10 MG TAB PO PRN ×3 (08:57→21:22)
[2017-06-03] MEDS: Enoxaparin Sodium 40 MG/0.4 ML SYRINGE SC SCH (08:58)
[2017-06-03] MEDS: Ferrous Sulfate 325 MG TAB PO SCH ×2 (08:59→17:12)
[2017-06-04] MEDS: Cyclobenzaprine 10 MG TAB PO PRN ×2 (04:55→20:32)
[2017-06-04] MEDS: HYDROcodone/Acetaminophen 7.5/325 mg Tablet PO PRN ×2 (04:56→09:39)
[2017-06-04] MEDS: fentaNYL 50 mcg/hour Patch TD SCH (08:37)
[2017-06-04] MEDS: Gabapentin 400 MG CAP PO SCH ×3 (08:38→20:31)
[2017-06-04] MEDS: Enoxaparin Sodium 40 MG/0.4 ML SYRINGE SC SCH (08:38)
[2017-06-04] MEDS: Metoprolol Tartrate 25 MG TAB PO SCH ×2 (08:39→20:31)
[2017-06-04] MEDS: Ferrous Sulfate 325 MG TAB PO SCH ×2 (08:39→17:08)
[2017-06-04] MEDS ORDERED: HYDROcodone/Acetaminophen 10/325 mg Tablet PO PRN (12:23)
[2017-06-04] MEDS: HYDROcodone/Acetaminophen 10/325 mg Tablet PO PRN ×3 (13:57→23:42)
[2017-06-05] MEDS: Lorazepam 0.5 MG TAB PO PRN (02:14)
[2017-06-05 05:30] LABS: #Basophils 0.1 thou/uL (0.0-0.2); #Eosinphils 0.3 thou/uL (0.0-0.7); #Lymphocytes 1.8 thou/uL (1.20-3.40); #Monocytes 0.6 thou/uL (0.11-0.59); #Neutrophils 4.4 thou/uL (1.40-6.50); %Basophils 0.8 % (0.0-1.0); %Eosinophils 4.8 % (0.0-10.0); %Lymphocytes 24.6 % (21.0-51.0); %Monocytes 8.3 % (0.0-10.0); %Neutrophils 61.5 % (42.0-75.0); Hemoglobin 8.8 g/dL (12.0-16.0); Mean Corpuscular HGB CONC 31.7 g/dL (32.0-36.0); Mean Corpuscular Hemoglobin 30.1 pg (27.0-31.0); Mean Corpuscular Volume 94.9 fl (81.0-99.0); Mean Platelet Volume 5.1 fL (7.4-10.4); Platelet Count 417 thou/uL (130-400); RBC Distribution Width 15.4 % (11.5-14.5); Red Blood Cell (RBC) Count 2.92 mill/uL (4.20-5.40); White Blood Cell (WBC) Count 7.1 thou/uL (4.8-10.8)
[2017-06-05] MEDS: Enoxaparin Sodium 40 MG/0.4 ML SYRINGE SC SCH (08:03)
[2017-06-05] MEDS: Ferrous Sulfate 325 MG TAB PO SCH ×2 (08:04→17:12)
[2017-06-05] MEDS: HYDROcodone/Acetaminophen 10/325 mg Tablet PO PRN ×4 (08:04→21:54)
[2017-06-05] MEDS: Metoprolol Tartrate 25 MG TAB PO SCH ×2 (08:04→20:30)
[2017-06-05] MEDS: Gabapentin 400 MG CAP PO SCH ×3 (08:04→20:30)
[2017-06-05] MEDS: Cyclobenzaprine 10 MG TAB PO PRN (12:07)
[2017-06-06] MEDS: Gabapentin 400 MG CAP PO SCH ×3 (08:14→20:59)
[2017-06-06] MEDS: Metoprolol Tartrate 25 MG TAB PO SCH ×2 (08:14→20:59)
[2017-06-06] MEDS: Ferrous Sulfate 325 MG TAB PO SCH ×2 (08:14→17:12)
[2017-06-06] MEDS: Enoxaparin Sodium 40 MG/0.4 ML SYRINGE SC SCH (08:15)
[2017-06-06] MEDS: HYDROcodone/Acetaminophen 10/325 mg Tablet PO PRN ×4 (09:00→23:12)
[2017-06-06] MEDS: Cyclobenzaprine 10 MG TAB PO PRN (11:45)
[2017-06-06] MEDS: Lorazepam 0.5 MG TAB PO PRN (20:59)
[2017-06-07] MEDS: HYDROcodone/Acetaminophen 10/325 mg Tablet PO PRN ×5 (05:12→23:08)
[2017-06-07] MEDS: Ferrous Sulfate 325 MG TAB PO SCH ×2 (09:12→17:24)
[2017-06-07] MEDS: Enoxaparin Sodium 40 MG/0.4 ML SYRINGE SC SCH (09:13)
[2017-06-07] MEDS: fentaNYL 50 mcg/hour Patch TD SCH (09:13)
[2017-06-07] MEDS: Gabapentin 400 MG CAP PO SCH ×3 (09:14→20:41)
[2017-06-07] MEDS: Metoprolol Tartrate 25 MG TAB PO SCH ×2 (09:14→20:42)
[2017-06-07] MEDS: Cyclobenzaprine 10 MG TAB PO PRN ×2 (14:38→19:17)
[2017-06-07] MEDS: Lorazepam 0.5 MG TAB PO PRN (19:17)
[2017-06-08] MEDS: Gabapentin 400 MG CAP PO SCH ×3 (08:14→20:41)
[2017-06-08] MEDS: Metoprolol Tartrate 25 MG TAB PO SCH ×2 (08:15→20:41)
[2017-06-08] MEDS: Ferrous Sulfate 325 MG TAB PO SCH ×2 (08:15→17:18)
[2017-06-08] MEDS: HYDROcodone/Acetaminophen 10/325 mg Tablet PO PRN ×4 (08:20→21:26)
[2017-06-08] MEDS: Cyclobenzaprine 10 MG TAB PO PRN ×3 (10:40→18:41)
[2017-06-08] MEDS: Lorazepam 0.5 MG TAB PO PRN (21:26)
[2017-06-09] MEDS: HYDROcodone/Acetaminophen 10/325 mg Tablet PO PRN ×5 (02:22→22:18)
[2017-06-09] MEDS: Cyclobenzaprine 10 MG TAB PO PRN ×4 (02:23→22:19)
[2017-06-09] MEDS: Gabapentin 400 MG CAP PO SCH ×3 (08:10→20:35)
[2017-06-09] MEDS: Ferrous Sulfate 325 MG TAB PO SCH ×2 (08:11→17:28)
[2017-06-09] MEDS: Metoprolol Tartrate 25 MG TAB PO SCH ×2 (08:11→20:35)
[2017-06-09] MEDS: Lorazepam 0.5 MG TAB PO PRN (20:35)
[2017-06-10] MEDS: HYDROcodone/Acetaminophen 10/325 mg Tablet PO PRN ×4 (05:53→20:42)
[2017-06-10] MEDS: Ferrous Sulfate 325 MG TAB PO SCH ×2 (07:54→16:33)
[2017-06-10] MEDS: Cyclobenzaprine 10 MG TAB PO PRN ×2 (07:54→20:44)
[2017-06-10] MEDS: fentaNYL 50 mcg/hour Patch TD SCH (08:47)
[2017-06-10] MEDS: Metoprolol Tartrate 25 MG TAB PO SCH ×2 (08:48→20:11)
[2017-06-10] MEDS: Gabapentin 400 MG CAP PO SCH ×3 (08:48→20:11)
[2017-06-11] MEDS: HYDROcodone/Acetaminophen 10/325 mg Tablet PO PRN ×3 (08:28→21:34)
[2017-06-11] MEDS: Cyclobenzaprine 10 MG TAB PO PRN ×2 (08:28→21:33)
[2017-06-11] MEDS: Gabapentin 400 MG CAP PO SCH ×3 (08:29→21:33)
[2017-06-11] MEDS: Ferrous Sulfate 325 MG TAB PO SCH ×2 (08:30→17:06)
[2017-06-11] MEDS: Metoprolol Tartrate 25 MG TAB PO SCH ×2 (08:30→21:33)
[2017-06-12] MEDS: Gabapentin 400 MG CAP PO SCH ×3 (08:04→21:11)
[2017-06-12] MEDS: Metoprolol Tartrate 25 MG TAB PO SCH ×2 (08:04→21:11)
[2017-06-12] MEDS: HYDROcodone/Acetaminophen 10/325 mg Tablet PO PRN ×4 (08:04→21:12)
[2017-06-12] MEDS: Ferrous Sulfate 325 MG TAB PO SCH ×2 (08:04→17:15)
[2017-06-12] MEDS: Cyclobenzaprine 10 MG TAB PO PRN ×3 (08:05→18:10)
[2017-06-12] MEDS ORDERED: Ondansetron ODT 4 MG TAB PO PRN (12:20)
[2017-06-12 13:17] LABS: Bilirubin Negative (Negative); Blood, Urine Negative (Negative); Clarity Clear (Clear); Glucose, Urine (Dipstick) Negative (Negative); Leukocyte Negative (Negative); Nitrite Negative (Negative); Protein, Urine (Dipstick) Negative (Neg-Trace); Urobilinogen 0.2 mg/dL (0.2-1.0)
[2017-06-12 13:18] LABS: Bacteria/HPF Rare-Few HPF (None Seen); RBC/HPF 0-3 HPF (0-3); WBC/HPF 0-3 HPF (0-3)
[2017-06-12 13:42] LABS: #Basophils 0.1 thou/uL (0.0-0.2); #Eosinphils 0.2 thou/uL (0.0-0.7); #Lymphocytes 1.4 thou/uL (1.20-3.40); #Monocytes 0.4 thou/uL (0.11-0.59); #Neutrophils 5.7 thou/uL (1.40-6.50); %Basophils 0.8 % (0.0-1.0); %Eosinophils 2.8 % (0.0-10.0); %Lymphocytes 17.7 % (21.0-51.0); %Neutrophils 73.6 % (42.0-75.0); Hemoglobin 9.7 g/dL (12.0-16.0); Mean Corpuscular HGB CONC 30.9 g/dL (32.0-36.0); Mean Corpuscular Hemoglobin 29.4 pg (27.0-31.0); Mean Corpuscular Volume 95.2 fl (81.0-99.0); Mean Platelet Volume 5.6 fL (7.4-10.4); Platelet Count 416 thou/uL (130-400); Red Blood Cell (RBC) Count 3.31 mill/uL (4.20-5.40); White Blood Cell (WBC) Count 7.8 thou/uL (4.8-10.8)
[2017-06-12 14:51] LABS: ALT (SGPT) 10 U/L (8-55); AST (SGOT) 14 U/L (5-34); Alkaline Phosphatase 170 U/L (40-150); Anion Gap 12 mmol/L (10-20); BUN (Urea Nitrogen) 13 mg/dL (9.8-20.1); Bilirubin, Total Less than 0.3 mg/dL (0.2-1.2); Calc. Creatinine Clearance 95 mL/min (70-130); Calcium 8.8 mg/dL (7.8-10.44); Carbon Dioxide 29 mmol/L (23-31); Chloride 100 mmol/L (98-107); Estimated GFR-MDRD Greater than 90; Globulin 3.2 g/dL (2.4-3.5); Glucose 125 mg/dL (83-110); Potassium 4.3 mmol/L (3.5-5.1); Protein, Total 6.2 g/dL (6.0-8.3); Sodium 137 mmol/L (136-145)
--- NOTE | 2017-06-12 16:07 | RAD ---
PORTABLE CHEST ONE VIEW: 06/12/2017 2:12 p.m. HISTORY: Cough. COMPARISON: 05/24/2017 FINDINGS: The heart size is normal. The aorta is tortuous. the lungs are well expanded without confluent are as of consolidation, pneumothorax, or pleural effusions. There is evidence of old granulomatous dis ease. IMPRESSION: No acute process. POS: [facility]
[2017-06-13] MEDS: HYDROcodone/Acetaminophen 10/325 mg Tablet PO PRN ×4 (01:49→21:27)
[2017-06-13] MEDS: Cyclobenzaprine 10 MG TAB PO PRN ×3 (01:51→21:26)
[2017-06-13] MEDS: Gabapentin 400 MG CAP PO SCH ×3 (08:30→21:27)
[2017-06-13] MEDS: fentaNYL 50 mcg/hour Patch TD SCH (08:30)
[2017-06-13] MEDS: Metoprolol Tartrate 25 MG TAB PO SCH ×2 (08:30→21:27)
[2017-06-13] MEDS: Ferrous Sulfate 325 MG TAB PO SCH ×2 (08:30→17:10)
[2017-06-13] MEDS: Lorazepam 0.5 MG TAB PO PRN (21:27)
[2017-06-14] MEDS: HYDROcodone/Acetaminophen 10/325 mg Tablet PO PRN ×4 (02:27→18:15)
[2017-06-14] MEDS: Cyclobenzaprine 10 MG TAB PO PRN (07:20)
[2017-06-14] MEDS: Metoprolol Tartrate 25 MG TAB PO SCH ×2 (08:37→20:39)
[2017-06-14] MEDS: Ferrous Sulfate 325 MG TAB PO SCH ×2 (08:37→17:02)
[2017-06-14] MEDS: Gabapentin 400 MG CAP PO SCH ×3 (08:37→20:39)
[2017-06-14] MEDS: Lorazepam 0.5 MG TAB PO PRN (17:02)
[2017-06-15] MEDS: HYDROcodone/Acetaminophen 10/325 mg Tablet PO PRN ×5 (00:41→20:21)
[2017-06-15] MEDS: Cyclobenzaprine 10 MG TAB PO PRN ×3 (00:44→13:20)
[2017-06-15] MEDS: Ferrous Sulfate 325 MG TAB PO SCH ×2 (07:54→16:26)
[2017-06-15] MEDS: Gabapentin 400 MG CAP PO SCH ×3 (08:07→20:18)
[2017-06-15] MEDS: Metoprolol Tartrate 25 MG TAB PO SCH ×2 (08:08→20:21)
[2017-06-15] MEDS: Lorazepam 0.5 MG TAB PO PRN (20:20)
[2017-06-16] MEDS: Cyclobenzaprine 10 MG TAB PO PRN ×3 (00:58→14:43)
[2017-06-16] MEDS: HYDROcodone/Acetaminophen 10/325 mg Tablet PO PRN ×5 (00:59→20:34)
[2017-06-16] MEDS: Metoprolol Tartrate 25 MG TAB PO SCH ×2 (09:12→20:34)
[2017-06-16] MEDS: Gabapentin 400 MG CAP PO SCH ×3 (09:12→20:34)
[2017-06-16] MEDS: Ferrous Sulfate 325 MG TAB PO SCH ×2 (09:13→17:18)
[2017-06-16] MEDS: fentaNYL 50 mcg/hour Patch TD SCH (09:15)
[2017-06-17] MEDS: HYDROcodone/Acetaminophen 10/325 mg Tablet PO PRN ×5 (00:31→18:57)
[2017-06-17] MEDS: Cyclobenzaprine 10 MG TAB PO PRN ×3 (00:31→18:57)
[2017-06-17] MEDS: Ferrous Sulfate 325 MG TAB PO SCH ×2 (08:21→17:10)
[2017-06-17] MEDS: Metoprolol Tartrate 25 MG TAB PO SCH ×2 (08:21→20:48)
[2017-06-17] MEDS: Gabapentin 400 MG CAP PO SCH ×3 (08:21→20:48)
[2017-06-18] MEDS: HYDROcodone/Acetaminophen 10/325 mg Tablet PO PRN ×5 (00:37→20:33)
[2017-06-18] MEDS: Cyclobenzaprine 10 MG TAB PO PRN ×3 (05:26→20:33)
[2017-06-18] MEDS: Ferrous Sulfate 325 MG TAB PO SCH ×2 (09:13→17:06)
[2017-06-18] MEDS: Gabapentin 400 MG CAP PO SCH ×3 (09:13→20:33)
[2017-06-18] MEDS: Metoprolol Tartrate 25 MG TAB PO SCH ×2 (09:13→20:33)
[2017-06-19] MEDS: Cyclobenzaprine 10 MG TAB PO PRN ×4 (05:04→23:39)
[2017-06-19] MEDS: HYDROcodone/Acetaminophen 10/325 mg Tablet PO PRN ×5 (05:05→23:38)
[2017-06-19] MEDS: fentaNYL 50 mcg/hour Patch TD SCH (09:11)
[2017-06-19] MEDS: Gabapentin 400 MG CAP PO SCH ×3 (09:12→21:13)
[2017-06-19] MEDS: Metoprolol Tartrate 25 MG TAB PO SCH ×2 (09:12→21:14)
[2017-06-19] MEDS: Ferrous Sulfate 325 MG TAB PO SCH ×2 (09:12→16:12)
[2017-06-20] MEDS: HYDROcodone/Acetaminophen 10/325 mg Tablet PO PRN ×3 (08:11→20:41)
[2017-06-20] MEDS: Cyclobenzaprine 10 MG TAB PO PRN ×3 (08:13→20:42)
[2017-06-20] MEDS: Metoprolol Tartrate 25 MG TAB PO SCH ×2 (08:14→20:41)
[2017-06-20] MEDS: Gabapentin 400 MG CAP PO SCH ×3 (08:14→20:41)
[2017-06-20] MEDS: Ferrous Sulfate 325 MG TAB PO SCH ×2 (08:14→17:10)
[2017-06-21] MEDS: HYDROcodone/Acetaminophen 10/325 mg Tablet PO PRN ×4 (00:33→20:44)
[2017-06-21] MEDS: Gabapentin 400 MG CAP PO SCH ×3 (09:08→20:43)
[2017-06-21] MEDS: Ferrous Sulfate 325 MG TAB PO SCH ×2 (09:08→17:31)
[2017-06-21] MEDS: Cyclobenzaprine 10 MG TAB PO PRN ×3 (09:09→20:44)
[2017-06-21] MEDS: Metoprolol Tartrate 25 MG TAB PO SCH ×2 (09:09→20:44)
[2017-06-21] MEDS ORDERED: FLU VACC TS2017-18 (>65YR) 0.5 ML SYRINGE IM ONE (12:15)
[2017-06-22] MEDS: Cyclobenzaprine 10 MG TAB PO PRN ×3 (07:52→16:52)
[2017-06-22] MEDS: HYDROcodone/Acetaminophen 10/325 mg Tablet PO PRN ×4 (07:52→21:02)
[2017-06-22] MEDS: Metoprolol Tartrate 25 MG TAB PO SCH ×2 (07:54→20:28)
[2017-06-22] MEDS: Ferrous Sulfate 325 MG TAB PO SCH ×2 (07:54→16:52)
[2017-06-22] MEDS: Gabapentin 400 MG CAP PO SCH ×3 (07:54→20:28)
[2017-06-22] MEDS: fentaNYL 50 mcg/hour Patch TD SCH (07:55)
[2017-06-22] MEDS ORDERED: FLU VACC TS2017-18 (>65YR) 0.5 ML SYRINGE IM ONE (11:45)
[2017-06-22 20:24] VITALS: BMI 30.2
[2017-06-23] MEDS: HYDROcodone/Acetaminophen 10/325 mg Tablet PO PRN ×4 (03:42→20:35)
[2017-06-23] MEDS: Ferrous Sulfate 325 MG TAB PO SCH ×2 (08:34→17:06)
[2017-06-23] MEDS: Gabapentin 400 MG CAP PO SCH ×3 (08:34→20:35)
[2017-06-23] MEDS: Metoprolol Tartrate 25 MG TAB PO SCH ×2 (08:35→20:35)
[2017-06-23] MEDS: Cyclobenzaprine 10 MG TAB PO PRN ×2 (08:50→20:35)
[2017-06-24] MEDS: HYDROcodone/Acetaminophen 10/325 mg Tablet PO PRN ×3 (08:41→20:45)
[2017-06-24] MEDS: Ferrous Sulfate 325 MG TAB PO SCH ×2 (08:42→17:08)
[2017-06-24] MEDS: Gabapentin 400 MG CAP PO SCH ×3 (08:42→20:44)
[2017-06-24] MEDS: Cyclobenzaprine 10 MG TAB PO PRN ×2 (08:43→15:46)
[2017-06-24] MEDS: Metoprolol Tartrate 25 MG TAB PO SCH ×2 (08:43→20:44)
[2017-06-24] MEDS: Lorazepam 0.5 MG TAB PO PRN (20:44)
[2017-06-25] MEDS: fentaNYL 50 mcg/hour Patch TD SCH (08:33)
[2017-06-25] MEDS: HYDROcodone/Acetaminophen 10/325 mg Tablet PO PRN ×3 (08:34→20:25)
[2017-06-25] MEDS: Metoprolol Tartrate 25 MG TAB PO SCH ×2 (08:35→20:18)
[2017-06-25] MEDS: Cyclobenzaprine 10 MG TAB PO PRN ×2 (08:35→13:28)
[2017-06-25] MEDS: Gabapentin 400 MG CAP PO SCH ×3 (08:35→20:17)
[2017-06-25] MEDS: Ferrous Sulfate 325 MG TAB PO SCH ×2 (08:36→17:03)
[2017-06-25] MEDS: Lorazepam 0.5 MG TAB PO PRN (20:18)
[2017-06-26] MEDS: HYDROcodone/Acetaminophen 10/325 mg Tablet PO PRN ×4 (05:56→20:46)
[2017-06-26] MEDS: Ferrous Sulfate 325 MG TAB PO SCH ×2 (08:30→16:44)
[2017-06-26] MEDS: Metoprolol Tartrate 25 MG TAB PO SCH ×2 (08:30→20:44)
[2017-06-26] MEDS: Gabapentin 400 MG CAP PO SCH ×3 (08:30→20:43)
[2017-06-26] MEDS: Cyclobenzaprine 10 MG TAB PO PRN ×3 (09:22→21:07)
[2017-06-27] MEDS: HYDROcodone/Acetaminophen 10/325 mg Tablet PO PRN ×4 (07:56→23:50)
[2017-06-27] MEDS: Cyclobenzaprine 10 MG TAB PO PRN ×2 (07:56→17:20)
[2017-06-27] MEDS: Ferrous Sulfate 325 MG TAB PO SCH ×2 (08:50→17:20)
[2017-06-27] MEDS: Metoprolol Tartrate 25 MG TAB PO SCH ×2 (08:50→20:45)
[2017-06-27] MEDS: Gabapentin 400 MG CAP PO SCH ×3 (08:50→20:45)
[2017-06-27] MEDS: Lorazepam 0.5 MG TAB PO PRN (20:46)
[2017-06-28] MEDS: Cyclobenzaprine 10 MG TAB PO PRN ×3 (01:25→17:08)
[2017-06-28] MEDS: Ferrous Sulfate 325 MG TAB PO SCH ×2 (08:30→17:08)
[2017-06-28] MEDS: fentaNYL 50 mcg/hour Patch TD SCH (08:31)
[2017-06-28] MEDS: Gabapentin 400 MG CAP PO SCH ×3 (08:31→20:22)
[2017-06-28] MEDS: Metoprolol Tartrate 25 MG TAB PO SCH ×2 (08:31→20:22)
[2017-06-28] MEDS: HYDROcodone/Acetaminophen 10/325 mg Tablet PO PRN ×4 (08:32→23:12)
[2017-06-29] MEDS: Ferrous Sulfate 325 MG TAB PO SCH ×2 (08:25→17:09)
[2017-06-29] MEDS: Metoprolol Tartrate 25 MG TAB PO SCH ×2 (08:25→20:46)
[2017-06-29] MEDS: Gabapentin 400 MG CAP PO SCH ×3 (08:25→20:46)
[2017-06-29] MEDS: Cyclobenzaprine 10 MG TAB PO PRN ×3 (08:26→21:39)
[2017-06-29] MEDS: HYDROcodone/Acetaminophen 10/325 mg Tablet PO PRN ×4 (08:26→21:39)
[2017-06-30] MEDS: HYDROcodone/Acetaminophen 10/325 mg Tablet PO PRN ×4 (04:13→20:47)
[2017-06-30] MEDS: Ferrous Sulfate 325 MG TAB PO SCH ×2 (08:22→17:29)
[2017-06-30] MEDS: Gabapentin 400 MG CAP PO SCH ×3 (08:22→20:47)
[2017-06-30] MEDS: Metoprolol Tartrate 25 MG TAB PO SCH ×2 (08:22→20:47)
[2017-06-30] MEDS: Cyclobenzaprine 10 MG TAB PO PRN ×3 (08:24→20:47)
[2017-07-01] MEDS: Cyclobenzaprine 10 MG TAB PO PRN ×2 (08:36→20:01)
[2017-07-01] MEDS: Gabapentin 400 MG CAP PO SCH ×3 (08:37→20:01)
[2017-07-01] MEDS: fentaNYL 50 mcg/hour Patch TD SCH (08:37)
[2017-07-01] MEDS: Metoprolol Tartrate 25 MG TAB PO SCH ×2 (08:37→20:01)
[2017-07-01] MEDS: HYDROcodone/Acetaminophen 10/325 mg Tablet PO PRN ×3 (08:38→20:01)
[2017-07-01] MEDS: Ferrous Sulfate 325 MG TAB PO SCH ×2 (08:39→17:14)
[2017-07-02] MEDS: HYDROcodone/Acetaminophen 10/325 mg Tablet PO PRN ×4 (04:59→20:32)
[2017-07-02] MEDS: Cyclobenzaprine 10 MG TAB PO PRN ×3 (04:59→20:32)
[2017-07-02] MEDS: Metoprolol Tartrate 25 MG TAB PO SCH ×2 (09:03→20:32)
[2017-07-02] MEDS: Gabapentin 400 MG CAP PO SCH ×4 (09:03→20:30)
[2017-07-02] MEDS: Ferrous Sulfate 325 MG TAB PO SCH ×2 (09:03→17:11)
[2017-07-02] MEDS ORDERED: Lorazepam 0.5 MG TAB PO PRN (10:58)
[2017-07-02 13:06] LABS: #Eosinphils 0.3 thou/uL (0.0-0.7); #Lymphocytes 2.3 thou/uL (1.20-3.40); #Monocytes 0.5 thou/uL (0.11-0.59); #Neutrophils 2.8 thou/uL (1.40-6.50); %Basophils 0.7 % (0.0-1.0); %Eosinophils 5.5 % (0.0-10.0); %Lymphocytes 38.2 % (21.0-51.0); %Neutrophils 47.7 % (42.0-75.0); Hemoglobin 10.1 g/dL (12.0-16.0); Mean Corpuscular HGB CONC 30.7 g/dL (32.0-36.0); Mean Corpuscular Hemoglobin 29.6 pg (27.0-31.0); Mean Corpuscular Volume 96.3 fl (81.0-99.0); Mean Platelet Volume 5.4 fL (7.4-10.4); Platelet Count 289 thou/uL (130-400); RBC Distribution Width 16.2 % (11.5-14.5)
[2017-07-03] MEDS: Gabapentin 400 MG CAP PO SCH (07:59)
[2017-07-03] MEDS: Ferrous Sulfate 325 MG TAB PO SCH (08:00)
[2017-07-03] MEDS: Metoprolol Tartrate 25 MG TAB PO SCH (08:00)
[2017-07-03] MEDS: Cyclobenzaprine 10 MG TAB PO PRN (08:00)
[2017-07-03] MEDS: HYDROcodone/Acetaminophen 10/325 mg Tablet PO PRN (08:00)
[2017-07-03 08:17] VITALS: BP 141/74; TEMP 97.6
--- NOTE | 2017-07-03 13:04 | DIS ---
DATE OF ADMISSION: 06/01/2017 DATE OF DISCHARGE: 07/03/2017 ATTENDING PHYSICIAN: Chloe Mehta DO FINAL DIAGNOSES: 1. Status post left total hip replacement. 2. Chronic anemia. 3. Anxiety and depression. 4. Chronic pain syndrome. 5. Hypertension. 6. Chronic gait and mobility. HOSPITAL COURSE: This is a 76-year-old female that was admitted on 06/01/2017, status pos t left total hip replacement that was performed on 05/27/[address] Pelaez. The patient was admi tted for skilled physical therapy and occupational therapy, status post this injury. The patient bonilla s done remarkably well; she is now ambulating with a rolling walker 80 feet. She does continue to h ave some chronic gait and mobility and she continues to be a high risk for falls but was believed to be at her maximum rehabilitation potential from an inpatient standpoint. The patient has had an un complicated hospital course and her chronic medical conditions have remained well controlled. Initi ally, her hemoglobin was low at 8.8 and prior to admission, she did require 2 unit blood transfusion s. Prior to discharge, her hemoglobin had improved to 10.1. The patient's pain remained relatively well controlled on her home pain medication regimen, which she will continue upon discharge, length y discussion were had with patient regarding her disposition with encouragement for the patient to c onsider jail placement given her continued fall risk. The patient adamantly denies wanting to go to a jail and insist on returning home with her caregiver. The patient has been given the necessary risks and benefits to this decision as well as certain precautions in order to avoid future fall. On day of discharge, the patient was with normal vital signs with no change in her phy sical exam and was eating and tolerating a diet as well as walking with a rolling walker without any difficulty. MEDICATIONS UPON DISCHARGE: 1. Cyclobenzaprine 10 mg twice daily as needed. 2. Colace 100 mg once daily as needed. 3. Hydrocodone 10/325 one tab every 6 hours as needed. 4. Lorazepam 0.5 mg once daily as needed. 5. Metoprolol tartrate 25 mg twice daily. 6. Duloxetine 60 mg once daily. 7. Gabapentin 800 mg 3 times daily. 8. Fentanyl patch 100 mcg transdermal every 3 days to be changed tomorrow on 07/04/2017. DIET: She will resume a regular diet. ACTIVITIES: She is to ambulate with a rolling walker with fall risk precautions as tolerated. FOLLOWUP: The patient will see me in clinic in 4 weeks and nursing will arrange a followup visit wi gurvinder Pelaez to be done within 2 weeks.
== END 2017-07-03 11:00 | disposition home health service (06) | DRG 561 ==
LOC: MADMS 12:25
PROVIDERS: ADMIT Family Medicine; ATTEND Family Medicine
DX: S72.002D Fracture of unspecified part of neck of left femur, subsequent encounter for closed fracture with routine healing (principal); D64.9 Anemia, unspecified; I10 Essential (primary) hypertension; Z96.642 Presence of left artificial hip joint; S32.402D Unspecified fracture of left acetabulum, subsequent encounter for fracture with routine healing; Z47.1 Aftercare following joint replacement surgery; V49.9XXD Car occupant (driver) (passenger) injured in unspecified traffic accident, subsequent encounter; M48.061 Spinal stenosis, lumbar region without neurogenic claudication; E78.5 Hyperlipidemia, unspecified; K21.9 Gastro-esophageal reflux disease without esophagitis; F41.9 Anxiety disorder, unspecified; F32.9 Major depressive disorder, single episode, unspecified; Z87.891 Personal history of nicotine dependence; Z66 Do not resuscitate; R26.9 Unspecified abnormalities of gait and mobility; G89.4 Chronic pain syndrome; Z23 Encounter for immunization
CPT/HCPCS: 36415; 71010; 80053; 81001; 85025; 87086; 90471; 90682; 90732; A4353; G0008; G0009; G8978-GP-CL; G8979-GP-CJ; J1650; Q0162; Q2036

== ENCOUNTER 2017-08-14 13:34 | Emergency (ER) | payer MEDICARE ==
[2017-08-14] MEDS ORDERED: Penicillin V Potassium 250 MG TAB ONE (14:05)
[2017-08-14] MEDS ORDERED: Acetaminophen 325 MG TAB ONE (14:05)
[2017-08-14] MEDS ORDERED: HYDROcodone/Acetaminophen 5/325 mg Tablet ONE (14:05)
== END 2017-08-14 14:20 | disposition home or self-care (01) ==
LOC: MADERS 13:34
DX: K02.9 Dental caries, unspecified (principal); E78.5 Hyperlipidemia, unspecified; I10 Essential (primary) hypertension; F41.9 Anxiety disorder, unspecified; F32.9 Major depressive disorder, single episode, unspecified; F17.210 Nicotine dependence, cigarettes, uncomplicated; Z79.891 Long term (current) use of opiate analgesic; Z79.899 Other long term (current) drug therapy
CPT/HCPCS: 99282

== ENCOUNTER 2017-09-27 22:03 | Emergency (ER) | payer MEDICARE ==
[2017-09-27] MEDS ORDERED: HYDROcodone/Acetaminophen 10/325 mg Tablet ONE (23:06)
[2017-09-27] MEDS ORDERED: Diazepam 5 MG TAB ONE (23:06)
--- NOTE | 2017-09-28 07:40 | RAD ---
FOUR VIEWS LEFT KNEE: DATE: 09/27/17. COMPARISON: 09/18/17. HISTORY: Fall, pain. FINDINGS: Vertically oriented screws traverse the patella, stable. There is chondrocalcinosis of the lateral c ompartment. No knee joint effusion, displaced fracture, or evidence of dislocation. IMPRESSION: Stable 4-view examination of the left knee. POS: [facility]
--- NOTE | 2017-09-28 08:21 | RAD ---
TWO VIEWS OF THE LEFT HIP: INDICATION: Fall. FINDINGS: The exam is compared to a prior dated 09/18/17. The displaced acetabular prosthetic cup projects superolateral to the expected region of the acetabul ar seat and is unchanged in position from the comparison. The femoral prosthetic component has stewart nued articulation with the acetabular prosthetic component. No definite acute fracture or subluxatio n is grossly evident. IMPRESSION: Left hip prosthetic component appears unchanged from the most recent comparison dated 09/18/17. POS: [facility]
== END 2017-09-28 01:20 | disposition home or self-care (01) ==
LOC: MADERS 22:03
DX: S70.02XA Contusion of left hip, initial encounter (principal); S80.02XA Contusion of left knee, initial encounter; I10 Essential (primary) hypertension; E78.5 Hyperlipidemia, unspecified; F41.9 Anxiety disorder, unspecified; F32.9 Major depressive disorder, single episode, unspecified; F17.210 Nicotine dependence, cigarettes, uncomplicated; W19.XXXA Unspecified fall, initial encounter

== ENCOUNTER 2017-10-03 08:44 | Emergency (ER) | payer MEDICARE, OTHER ==
[~2017-10-03 08:44] MED LIST: Sodium Chloride 0.9% 1,000 ML BAG ONE
[2017-10-03] MEDS ORDERED: Ondansetron HCl/PF 4 MG/2 ML Vial ONE (09:02)
[2017-10-03 09:28] LABS: #Basophils 0.1 thou/uL (0.0-0.2); #Lymphocytes 1.5 thou/uL (1.20-3.40); #Monocytes 0.5 thou/uL (0.11-0.59); #Neutrophils 7.1 thou/uL (1.40-6.50); %Basophils 0.6 % (0.0-1.0); %Eosinophils 0.1 % (0.0-10.0); %Lymphocytes 16.6 % (21.0-51.0); %Neutrophils 77.8 % (42.0-75.0); Hemoglobin 12.9 g/dL (12.0-16.0); Mean Corpuscular HGB CONC 31.2 g/dL (32.0-36.0); Mean Corpuscular Hemoglobin 29.2 pg (27.0-31.0); Mean Corpuscular Volume 93.7 fl (81.0-99.0); Mean Platelet Volume 6.6 fL (7.4-10.4); Platelet Count 460 thou/uL (130-400); RBC Distribution Width 16.7 % (11.5-14.5); Red Blood Cell (RBC) Count 4.42 mill/uL (4.20-5.40); White Blood Cell (WBC) Count 9.1 thou/uL (4.8-10.8)
--- NOTE | 2017-10-03 09:30 | RAD ---
UPRIGHT PORTABLE CHEST 1 VIEW: Date: 10/03/17 HISTORY: 76-year-old female with history of chest pain. FINDINGS: Heart size is normal. The lungs are clear. There is atherosclerosis and old granulomatous disease. IMPRESSION: No acute intrathoracic disease. Stable atherosclerosis and old granulomatous disease. POS: [facility]
[2017-10-03 09:42] LABS: ALT (SGPT) 10 U/L (8-55); AST (SGOT) 19 U/L (5-34); Albumin 3.9 g/dL (3.4-4.8); Alkaline Phosphatase 214 U/L (40-150); Anion Gap 17 mmol/L (10-20); BUN (Urea Nitrogen) 21 mg/dL (9.8-20.1); Bilirubin, Total 0.5 mg/dL (0.2-1.2); Calc. Creatinine Clearance 0 mL/min (70-130); Calcium 9.3 mg/dL (7.8-10.44); Carbon Dioxide 26 mmol/L (23-31); Chloride 99 mmol/L (98-107); Estimated GFR-MDRD Greater than 90; Globulin 3.7 g/dL (2.4-3.5); Glucose 124 mg/dL (83-110); Lipase 8 U/L (8-78); Potassium 3.1 mmol/L (3.5-5.1); Protein, Total 7.6 g/dL (6.0-8.3); Sodium 139 mmol/L (136-145)
[2017-10-03 09:54] LABS: CKMB 1.7 ng/mL (0-6.6); Troponin I 0.022 ng/mL (< 0.028)
[2017-10-03] MEDS ORDERED: Potassium Chloride 20 MEQ/100 ML PREMIX BAG ONE (10:01)
[2017-10-03] MEDS ORDERED: Morphine 4 MG/ML VIAL ONE (10:01)
[2017-10-03] MEDS ORDERED: Nitroglycerin 2% Ointment 1 INCH/1 GM Packet ONE (10:36)
[2017-10-03] MEDS ORDERED: Pantoprazole 40 MG VIAL ONE (10:36)
== END 2017-10-03 11:09 | disposition short-term general hospital (02) ==
LOC: MADERS 08:44
DX: R07.2 Precordial pain (principal); R11.2 Nausea with vomiting, unspecified; E78.5 Hyperlipidemia, unspecified; I10 Essential (primary) hypertension; F41.9 Anxiety disorder, unspecified; F32.9 Major depressive disorder, single episode, unspecified; F17.210 Nicotine dependence, cigarettes, uncomplicated
CPT/HCPCS: 71045; 80053; 82274; 82553; 83690; 84484; 85025; 87804; 93005; 96361; 96365; 96375; 96376; C9113; J2270; J2405; J3480; J7050

== ENCOUNTER 2017-10-23 14:16 | Emergency (ER) | payer MEDICARE ==
[~2017-10-23 14:16] MED LIST changes: +Donnatal Elixir 16.2 MG/5 ML UDCUP ONE; +Iopamidol 370 76% 100 ML VIAL ONE; -Sodium Chloride 0.9% 1,000 ML BAG ONE
[2017-10-23] MEDS ORDERED: Diphenoxylate HCl/Atropine Tablet ONE (15:16)
[2017-10-23] MEDS ORDERED: Morphine 4 MG/ML VIAL ONE ×2 (15:16→19:45)
[2017-10-23] MEDS ORDERED: Ondansetron HCl/PF 4 MG/2 ML Vial ONE ×2 (15:17→19:45)
[2017-10-23] MEDS ORDERED: Pantoprazole 40 MG VIAL ONE (15:17)
[2017-10-23] MEDS ORDERED: Donnatal Elixir 16.2 MG/5 ML UDCUP ONE (15:17)
[2017-10-23] MEDS ORDERED: Metoclopramide HCl 10 MG/2 ML VIAL ONE (15:17)
[2017-10-23] MEDS ORDERED: Mag-Al Plus 1200 MG/1200 MG/120 MG/30 ML UDCUP ONE (15:18)
[2017-10-23] MEDS ORDERED: Lidocaine Viscous Sol 2% 15 ml UD Cup ONE (15:18)
[2017-10-23 15:20] LABS: #Lymphocytes 0.7 thou/uL (1.20-3.40); #Monocytes 0.1 thou/uL (0.11-0.59); #Neutrophils 8.2 thou/uL (1.40-6.50); %Basophils 0.2 % (0.0-1.0); %Lymphocytes 7.5 % (21.0-51.0); %Monocytes 0.9 % (0.0-10.0); %Neutrophils 91.3 % (42.0-75.0); Hemoglobin 12.1 g/dL (12.0-16.0); Mean Corpuscular HGB CONC 29.9 g/dL (32.0-36.0); Mean Platelet Volume 6.3 fL (7.4-10.4); Platelet Count 385 thou/uL (130-400); RBC Distribution Width 17.9 % (11.5-14.5); Red Blood Cell (RBC) Count 4.18 mill/uL (4.20-5.40); White Blood Cell (WBC) Count 8.9 thou/uL (4.8-10.8)
[2017-10-23 15:38] LABS: ALT (SGPT) 21 U/L (8-55); AST (SGOT) 21 U/L (5-34); Albumin 4.2 g/dL (3.4-4.8); Alkaline Phosphatase 214 U/L (40-150); Anion Gap 17 mmol/L (10-20); BUN (Urea Nitrogen) 19 mg/dL (9.8-20.1); Bilirubin, Total 0.5 mg/dL (0.2-1.2); Calc. Creatinine Clearance 0 mL/min (70-130); Calcium 9.5 mg/dL (7.8-10.44); Carbon Dioxide 23 mmol/L (23-31); Chloride 106 mmol/L (98-107); Estimated GFR-MDRD Greater than 90; Globulin 3.2 g/dL (2.4-3.5); Glucose 145 mg/dL (83-110); Lipase 9 U/L (8-78); Potassium 3.4 mmol/L (3.5-5.1); Protein, Total 7.4 g/dL (6.0-8.3); Sodium 143 mmol/L (136-145)
[2017-10-23 15:40] LABS: CKMB 2.5 ng/mL (0-6.6); Troponin I 0.024 ng/mL (< 0.028)
--- NOTE | 2017-10-23 15:48 | RAD ---
PORTABLE CHEST 1 VIEW: Date: 10/23/17 Time: 1515 hours HISTORY: Abdominal pain. FINDINGS: Comparison made with exam of 10/03/17. The heart size is normal. There is evidence of old granulomatous disease. The aorta is tortuous. The lungs are well expanded without focal areas of consolidation, pneumothorax, or pleural effusions. IMPRESSION: No radiographic evidence of acute cardiopulmonary process. POS: [facility]
--- NOTE | 2017-10-23 20:30 | CT ---
CT OF THE ABDOMEN AND PELVIS WITH CONTRAST 10/23/17 COMPARISON: 08/01/16. HISTORY: Abdominal pain with vomiting. TECHNIQUE: Multiple contiguous axial images were obtained in a CT of the abdomen and pelvis with contrast. PO co ntrast was administered. Coronal reformats were performed. FINDINGS: The liver, gallbladder, kidneys, adrenal glands, and pancreas are unremarkable. Calcifications in the spleen are from prior granulomatous disease. No free air, free fluid or stranding changes are seen i n the abdomen or pelvis. Patient has a left hip prosthesis. There is significant lucency surrounding the acetabular component of the prosthesis with hypertrophic bone formation present as well. The acetabular component of the p rosthesis appears malpositioned. Streak artifact from the prosthesis limits evaluation of the pelvis. There are a few scattered diverticula in the colon. The small bowel is unremarkable. No abdominal or pelvic lymphadenopathy are seen. Atherosclerotic calcifications are seen in the aorta. Calcified gran ulomas are seen in the lung bases. Degenerative changes are seen in the spine. The abdominal wall sof t tissues are unremarkable. IMPRESSION: 1. No evidence of acute intra-abdominal/pelvic abnormality. 2. Diverticulosis. 3. There is significant lucency and an abnormal appearance of the left hip prosthesis. Correlate with plain films. POS: [facility]
== END 2017-10-23 20:45 | disposition home or self-care (01) ==
LOC: MADERS 14:16
DX: B34.9 Viral infection, unspecified (principal); E78.5 Hyperlipidemia, unspecified; I10 Essential (primary) hypertension; F41.9 Anxiety disorder, unspecified; F32.9 Major depressive disorder, single episode, unspecified; F17.210 Nicotine dependence, cigarettes, uncomplicated
CPT/HCPCS: 36415; 71045; 74177; 80053; 82553; 83690; 84484; 85025; 93005; 96374; 96375; 96376; C9113; J2270; J2405; J2765

== ENCOUNTER 2017-11-11 18:16 | Inpatient (IN) | payer MEDICARE ==
[2017-11-11] MEDS ORDERED: FLU VACC TS2017-18 (>65YR) 0.5 ML SYRINGE IM ONE (20:30)
[2017-11-11] MEDS: HYDROcodone/Acetaminophen 10/325 mg Tablet PO PRN (22:16)
[2017-11-12] MEDS: HYDROcodone/Acetaminophen 10/325 mg Tablet PO PRN ×4 (00:23→21:32)
[2017-11-12 05:39] LABS: #Basophils 0.1 thou/uL (0.0-0.2); #Eosinphils 0.3 thou/uL (0.0-0.7); #Lymphocytes 1.7 thou/uL (1.20-3.40); #Monocytes 0.4 thou/uL (0.11-0.59); #Neutrophils 4.3 thou/uL (1.40-6.50); %Basophils 0.9 % (0.0-1.0); %Lymphocytes 25.1 % (21.0-51.0); %Monocytes 6.5 % (0.0-10.0); %Neutrophils 63.5 % (42.0-75.0); Anion Gap 13 mmol/L (10-20); BUN (Urea Nitrogen) 15 mg/dL (9.8-20.1); Calc. Creatinine Clearance 114 mL/min (70-130); Calcium 8.6 mg/dL (7.8-10.44); Carbon Dioxide 30 mmol/L (23-31); Chloride 103 mmol/L (98-107); Estimated GFR-MDRD Greater than 90; Glucose 121 mg/dL (83-110); Hemoglobin 8.5 g/dL (12.0-16.0); Mean Corpuscular HGB CONC 32.3 g/dL (32.0-36.0); Mean Corpuscular Hemoglobin 30.6 pg (27.0-31.0); Mean Corpuscular Volume 94.5 fl (81.0-99.0); Mean Platelet Volume 5.8 fL (7.4-10.4); Platelet Count 310 thou/uL (130-400); Potassium 3.5 mmol/L (3.5-5.1); RBC Distribution Width 15.5 % (11.5-14.5); Red Blood Cell (RBC) Count 2.77 mill/uL (4.20-5.40); Sodium 142 mmol/L (136-145); White Blood Cell (WBC) Count 6.7 thou/uL (4.8-10.8)
[2017-11-12] MEDS: Floranex Packet PO SCH (07:36)
[2017-11-12] MEDS: Enoxaparin Sodium 40 MG/0.4 ML SYRINGE SC SCH (07:37)
[2017-11-12] MEDS: Multivitamin W/ Minerals 1 TAB PO SCH (07:37)
[2017-11-12] MEDS: Baclofen 10 MG TAB PO SCH ×3 (07:37→21:15)
[2017-11-12] MEDS: Gabapentin 400 MG CAP PO SCH ×3 (07:38→21:15)
[2017-11-12] MEDS: Aspirin 81 mg Enteric Coated Tablet PO SCH (07:38)
[2017-11-12] MEDS ORDERED: Polyethylene Glycol 3350 17 GM Packet PO PRN (08:12)
[2017-11-12] MEDS: Nicotine 7 MG PATCH TD SCH (11:34)
[2017-11-12] MEDS: Polyethylene Glycol 3350 17 GM Packet PO SCH (11:34)
[2017-11-12] MEDS: Ferrous Sulfate 325 MG TAB PO SCH ×2 (11:35→17:13)
[2017-11-12 11:42] LABS: Iron 13 ug/dL (50-170)
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
[2017-11-12] MEDS: Docusate 100 MG CAP PO PRN (17:12)
[2017-11-12] MEDS: DULoxetine 30 MG CAP PO SCH (21:15)
[2017-11-13] MEDS: HYDROcodone/Acetaminophen 10/325 mg Tablet PO PRN ×4 (04:29→22:47)
[2017-11-13] MEDS ORDERED: FLU VACC QS2017-18 36 mo. & older 0.5 ML SYRINGE IM ONE (05:00)
[2017-11-13] MEDS: Floranex Packet PO SCH (08:14)
[2017-11-13] MEDS: Ferrous Sulfate 325 MG TAB PO SCH ×2 (08:14→16:50)
[2017-11-13] MEDS: Nicotine 7 MG PATCH TD SCH (08:14)
[2017-11-13] MEDS: Multivitamin W/ Minerals 1 TAB PO SCH (08:14)
[2017-11-13] MEDS: Gabapentin 400 MG CAP PO SCH ×3 (08:14→21:51)
[2017-11-13] MEDS: Aspirin 81 mg Enteric Coated Tablet PO SCH (08:14)
[2017-11-13] MEDS: Polyethylene Glycol 3350 17 GM Packet PO SCH (08:15)
[2017-11-13] MEDS: Enoxaparin Sodium 40 MG/0.4 ML SYRINGE SC SCH (08:16)
[2017-11-13] MEDS: Baclofen 10 MG TAB PO SCH ×3 (09:49→21:50)
[2017-11-13] MEDS: DULoxetine 30 MG CAP PO SCH (21:51)
[2017-11-13] MEDS: Docusate 100 MG CAP PO PRN (22:54)
[2017-11-14] MEDS: Enoxaparin Sodium 40 MG/0.4 ML SYRINGE SC SCH (08:26)
[2017-11-14] MEDS: Gabapentin 400 MG CAP PO SCH ×3 (08:26→21:16)
[2017-11-14] MEDS: Polyethylene Glycol 3350 17 GM Packet PO SCH (08:26)
[2017-11-14] MEDS: HYDROcodone/Acetaminophen 10/325 mg Tablet PO PRN ×3 (08:27→21:15)
[2017-11-14] MEDS: Floranex Packet PO SCH (08:27)
[2017-11-14] MEDS: Multivitamin W/ Minerals 1 TAB PO SCH (08:28)
[2017-11-14] MEDS: Ferrous Sulfate 325 MG TAB PO SCH ×2 (08:28→16:56)
[2017-11-14] MEDS: Aspirin 81 mg Enteric Coated Tablet PO SCH (08:28)
[2017-11-14] MEDS: Baclofen 10 MG TAB PO SCH ×3 (08:28→21:15)
[2017-11-14] MEDS: Nicotine 7 MG PATCH TD SCH (08:28)
[2017-11-14] MEDS: DULoxetine 30 MG CAP PO SCH (21:15)
[2017-11-15] MEDS: HYDROcodone/Acetaminophen 10/325 mg Tablet PO PRN ×4 (04:30→23:16)
[2017-11-15] MEDS: Polyethylene Glycol 3350 17 GM Packet PO SCH (08:26)
[2017-11-15] MEDS: Gabapentin 400 MG CAP PO SCH ×3 (08:27→20:04)
[2017-11-15] MEDS: Baclofen 10 MG TAB PO SCH ×3 (08:27→20:04)
[2017-11-15] MEDS: Ferrous Sulfate 325 MG TAB PO SCH ×2 (08:27→16:57)
[2017-11-15] MEDS: Floranex Packet PO SCH (08:27)
[2017-11-15] MEDS: Enoxaparin Sodium 40 MG/0.4 ML SYRINGE SC SCH (08:27)
[2017-11-15] MEDS: Aspirin 81 mg Enteric Coated Tablet PO SCH (08:27)
[2017-11-15] MEDS: Multivitamin W/ Minerals 1 TAB PO SCH (08:27)
[2017-11-15] MEDS: Nicotine 7 MG PATCH TD SCH (08:28)
[2017-11-15] MEDS: DULoxetine 30 MG CAP PO SCH (20:04)
[2017-11-16] MEDS: Polyethylene Glycol 3350 17 GM Packet PO SCH (07:40)
[2017-11-16] MEDS: Floranex Packet PO SCH (07:48)
[2017-11-16] MEDS: Nicotine 7 MG PATCH TD SCH (07:49)
[2017-11-16] MEDS: Baclofen 10 MG TAB PO SCH ×3 (07:49→21:19)
[2017-11-16] MEDS: Enoxaparin Sodium 40 MG/0.4 ML SYRINGE SC SCH (07:49)
[2017-11-16] MEDS: Multivitamin W/ Minerals 1 TAB PO SCH (07:49)
[2017-11-16] MEDS: Ferrous Sulfate 325 MG TAB PO SCH ×2 (07:51→16:56)
[2017-11-16] MEDS: Aspirin 81 mg Enteric Coated Tablet PO SCH (07:51)
[2017-11-16] MEDS: HYDROcodone/Acetaminophen 10/325 mg Tablet PO PRN ×3 (07:52→20:03)
[2017-11-16] MEDS: Gabapentin 400 MG CAP PO SCH ×3 (07:57→21:19)
[2017-11-16] MEDS: Loperamide HCl 2 MG CAP PO PRN ×3 (08:22→23:29)
[2017-11-16 18:03] LABS: Bacteria/HPF Rare-Few HPF (None Seen); Bilirubin Negative (Negative); Blood, Urine Small (Negative); Clarity Hazy (Clear); Glucose, Urine (Dipstick) Negative (Negative); Leukocyte Negative (Negative); Nitrite Negative (Negative); Protein, Urine (Dipstick) Negative (Neg-Trace); Specific Gravity, Urine 1.015 (1.005-1.030); WBC/HPF 0-3 HPF (0-3)
[2017-11-16] MEDS: DULoxetine 30 MG CAP PO SCH (21:18)
[2017-11-16] MEDS: Nystatin Cream 15 GM TUBE TOP PRN (23:30)
[2017-11-16] MEDS: Lantiseptic Ointment 130 GM JAR TOP PRN (23:31)
[2017-11-17 00:14] VITALS: BMI 31.1
[2017-11-17] MEDS: HYDROcodone/Acetaminophen 10/325 mg Tablet PO PRN ×4 (02:12→21:26)
[2017-11-17] MEDS: Polyethylene Glycol 3350 17 GM Packet PO SCH (08:44)
[2017-11-17] MEDS: Ferrous Sulfate 325 MG TAB PO SCH ×2 (08:45→17:08)
[2017-11-17] MEDS: Gabapentin 400 MG CAP PO SCH ×3 (08:45→21:24)
[2017-11-17] MEDS: Floranex Packet PO SCH (08:45)
[2017-11-17] MEDS: Nicotine 7 MG PATCH TD SCH (08:45)
[2017-11-17] MEDS: Aspirin 81 mg Enteric Coated Tablet PO SCH (08:45)
[2017-11-17] MEDS: Multivitamin W/ Minerals 1 TAB PO SCH (08:45)
[2017-11-17] MEDS: Enoxaparin Sodium 40 MG/0.4 ML SYRINGE SC SCH (08:45)
[2017-11-17] MEDS: Baclofen 10 MG TAB PO SCH ×3 (08:45→21:27)
[2017-11-17] MEDS: DULoxetine 30 MG CAP PO SCH (21:24)
[2017-11-18] MEDS: HYDROcodone/Acetaminophen 10/325 mg Tablet PO PRN ×4 (05:26→23:32)
[2017-11-18] MEDS: Floranex Packet PO SCH (07:53)
[2017-11-18] MEDS: Multivitamin W/ Minerals 1 TAB PO SCH (07:53)
[2017-11-18] MEDS: Baclofen 10 MG TAB PO SCH ×3 (07:53→20:45)
[2017-11-18] MEDS: Aspirin 81 mg Enteric Coated Tablet PO SCH (07:53)
[2017-11-18] MEDS: Gabapentin 400 MG CAP PO SCH ×3 (07:53→20:45)
[2017-11-18] MEDS: Nicotine 7 MG PATCH TD SCH (07:54)
[2017-11-18] MEDS: Enoxaparin Sodium 40 MG/0.4 ML SYRINGE SC SCH (07:54)
[2017-11-18] MEDS: Ferrous Sulfate 325 MG TAB PO SCH ×2 (07:54→17:34)
[2017-11-18] MEDS: Polyethylene Glycol 3350 17 GM Packet PO SCH (08:01)
[2017-11-18] MEDS: DULoxetine 30 MG CAP PO SCH (20:45)
[2017-11-19] MEDS: HYDROcodone/Acetaminophen 10/325 mg Tablet PO PRN ×3 (08:43→20:51)
[2017-11-19] MEDS: Multivitamin W/ Minerals 1 TAB PO SCH (08:44)
[2017-11-19] MEDS: Aspirin 81 mg Enteric Coated Tablet PO SCH (08:44)
[2017-11-19] MEDS: Floranex Packet PO SCH (08:44)
[2017-11-19] MEDS: Polyethylene Glycol 3350 17 GM Packet PO SCH (08:44)
[2017-11-19] MEDS: Gabapentin 400 MG CAP PO SCH ×3 (08:45→20:51)
[2017-11-19] MEDS: Enoxaparin Sodium 40 MG/0.4 ML SYRINGE SC SCH (08:45)
[2017-11-19] MEDS: Baclofen 10 MG TAB PO SCH ×3 (08:45→20:51)
[2017-11-19] MEDS: Nicotine 7 MG PATCH TD SCH (08:45)
[2017-11-19] MEDS: Ferrous Sulfate 325 MG TAB PO SCH ×2 (08:46→16:58)
[2017-11-19] MEDS: DULoxetine 30 MG CAP PO SCH (20:51)
[2017-11-19] MEDS: Lantiseptic Ointment 130 GM JAR TOP PRN (20:53)
[2017-11-19] MEDS: Nystatin Cream 15 GM TUBE TOP PRN (20:54)
[2017-11-20] MEDS: Multivitamin W/ Minerals 1 TAB PO SCH (07:10)
[2017-11-20] MEDS: Floranex Packet PO SCH (07:10)
[2017-11-20] MEDS: Ferrous Sulfate 325 MG TAB PO SCH ×2 (07:10→17:51)
[2017-11-20] MEDS: Baclofen 10 MG TAB PO SCH ×3 (07:10→20:27)
[2017-11-20] MEDS: Gabapentin 400 MG CAP PO SCH ×3 (07:10→20:27)
[2017-11-20] MEDS: Aspirin 81 mg Enteric Coated Tablet PO SCH (07:10)
[2017-11-20] MEDS: Enoxaparin Sodium 40 MG/0.4 ML SYRINGE SC SCH (07:10)
[2017-11-20] MEDS: Polyethylene Glycol 3350 17 GM Packet PO SCH (07:11)
[2017-11-20] MEDS: Nicotine 7 MG PATCH TD SCH (07:11)
[2017-11-20] MEDS: HYDROcodone/Acetaminophen 10/325 mg Tablet PO PRN ×3 (07:11→20:26)
[2017-11-20] MEDS ORDERED: Nystatin Powder 15 GM BOT TOP PRN (08:34)
[2017-11-20] MEDS: Nystatin Cream 15 GM TUBE TOP PRN (08:38)
[2017-11-20] MEDS: Lantiseptic Ointment 130 GM JAR TOP PRN (08:38)
[2017-11-20] MEDS: DULoxetine 30 MG CAP PO SCH (20:27)
[2017-11-21] MEDS: HYDROcodone/Acetaminophen 10/325 mg Tablet PO PRN ×4 (02:28→21:10)
[2017-11-21] MEDS: Ferrous Sulfate 325 MG TAB PO SCH ×2 (08:57→17:41)
[2017-11-21] MEDS: Enoxaparin Sodium 40 MG/0.4 ML SYRINGE SC SCH (08:58)
[2017-11-21] MEDS: Floranex Packet PO SCH (08:58)
[2017-11-21] MEDS: Aspirin 81 mg Enteric Coated Tablet PO SCH (08:58)
[2017-11-21] MEDS: Baclofen 10 MG TAB PO SCH ×3 (08:58→21:05)
[2017-11-21] MEDS: Gabapentin 400 MG CAP PO SCH ×3 (08:59→21:05)
[2017-11-21] MEDS: Multivitamin W/ Minerals 1 TAB PO SCH (08:59)
[2017-11-21] MEDS: Nicotine 7 MG PATCH TD SCH ×2 (08:59→09:08)
[2017-11-21] MEDS: Polyethylene Glycol 3350 17 GM Packet PO SCH (08:59)
[2017-11-21] MEDS: DULoxetine 30 MG CAP PO SCH (21:05)
[2017-11-22] MEDS: HYDROcodone/Acetaminophen 10/325 mg Tablet PO PRN ×4 (03:51→22:12)
[2017-11-22] MEDS: Baclofen 10 MG TAB PO SCH ×3 (08:37→20:17)
[2017-11-22] MEDS: Floranex Packet PO SCH (08:37)
[2017-11-22] MEDS: Gabapentin 400 MG CAP PO SCH ×3 (08:37→20:17)
[2017-11-22] MEDS: Multivitamin W/ Minerals 1 TAB PO SCH (08:37)
[2017-11-22] MEDS: Aspirin 81 mg Enteric Coated Tablet PO SCH (08:37)
[2017-11-22] MEDS: Enoxaparin Sodium 40 MG/0.4 ML SYRINGE SC SCH (08:38)
[2017-11-22] MEDS: Polyethylene Glycol 3350 17 GM Packet PO SCH (08:38)
[2017-11-22] MEDS: Nicotine 7 MG PATCH TD SCH (08:38)
[2017-11-22] MEDS: Ferrous Sulfate 325 MG TAB PO SCH ×2 (08:38→16:16)
[2017-11-22] MEDS: DULoxetine 30 MG CAP PO SCH (20:17)
[2017-11-23] MEDS: HYDROcodone/Acetaminophen 10/325 mg Tablet PO PRN ×3 (07:38→20:19)
[2017-11-23 09:15] LABS: Hemoglobin 10.5 g/dL (12.0-16.0); Mean Corpuscular Volume 97.1 fL (81.0-99.0); Red Blood Cell (RBC) Count 3.56 mill/uL (4.20-5.40); White Blood Cell (WBC) Count 8.6 thou/uL (4.8-10.8)
[2017-11-23 09:16] LABS: #Basophils 0.1 thou/uL (0.0-0.2); #Eosinphils 0.3 thou/uL (0.0-0.7); #Lymphocytes 2.3 thou/uL (1.20-3.40); #Monocytes 0.5 thou/uL (0.11-0.59); #Neutrophils 5.5 thou/uL (1.40-6.50); %Basophils 1.1 % (0.0-1.0); %Eosinophils 3.4 % (0.0-10.0); %Monocytes 5.5 % (0.0-10.0); %Neutrophils 63.1 % (42.0-75.0); Mean Corpuscular HGB CONC 30.3 g/dL (32.0-36.0); Mean Corpuscular Hemoglobin 29.4 pg (27.0-31.0); Mean Platelet Volume 5.3 fL (7.4-10.4); Platelet Count 666 thou/uL (130-400); RBC Distribution Width 16.7 % (11.5-14.5)
[2017-11-23 09:30] LABS: Anion Gap 21 mmol/L (10-20); BUN (Urea Nitrogen) 11 mg/dL (9.8-20.1); Calc. Creatinine Clearance 93 mL/min (70-130); Calcium 9.5 mg/dL (7.8-10.44); Carbon Dioxide 25 mmol/L (23-31); Chloride 100 mmol/L (98-107); Estimated GFR-MDRD Greater than 90; Glucose 162 mg/dL (83-110); Potassium 4.4 mmol/L (3.5-5.1); Sodium 142 mmol/L (136-145)
[2017-11-23] MEDS: Floranex Packet PO SCH (09:43)
[2017-11-23] MEDS: Aspirin 81 mg Enteric Coated Tablet PO SCH (09:43)
[2017-11-23] MEDS: Ferrous Sulfate 325 MG TAB PO SCH ×2 (09:43→18:05)
[2017-11-23] MEDS: Gabapentin 400 MG CAP PO SCH ×3 (09:44→20:18)
[2017-11-23] MEDS: Polyethylene Glycol 3350 17 GM Packet PO SCH (09:44)
[2017-11-23] MEDS: Multivitamin W/ Minerals 1 TAB PO SCH (09:44)
[2017-11-23] MEDS: Nicotine 7 MG PATCH TD SCH (09:45)
[2017-11-23] MEDS: Enoxaparin Sodium 40 MG/0.4 ML SYRINGE SC SCH (09:45)
[2017-11-23] MEDS: Baclofen 10 MG TAB PO SCH ×3 (09:45→20:18)
[2017-11-23] MEDS: DULoxetine 30 MG CAP PO SCH (20:18)
[2017-11-24] MEDS: HYDROcodone/Acetaminophen 10/325 mg Tablet PO PRN ×3 (05:37→17:32)
[2017-11-24] MEDS: Nicotine 7 MG PATCH TD SCH (08:25)
[2017-11-24] MEDS: Floranex Packet PO SCH (08:25)
[2017-11-24] MEDS: Baclofen 10 MG TAB PO SCH ×3 (08:25→20:29)
[2017-11-24] MEDS: Polyethylene Glycol 3350 17 GM Packet PO SCH (08:26)
[2017-11-24] MEDS: Enoxaparin Sodium 40 MG/0.4 ML SYRINGE SC SCH (08:26)
[2017-11-24] MEDS: Aspirin 81 mg Enteric Coated Tablet PO SCH (08:26)
[2017-11-24] MEDS: Gabapentin 400 MG CAP PO SCH ×3 (08:26→20:29)
[2017-11-24] MEDS: Multivitamin W/ Minerals 1 TAB PO SCH (08:26)
[2017-11-24] MEDS: Ferrous Sulfate 325 MG TAB PO SCH ×2 (08:26→17:32)
[2017-11-24] MEDS: DULoxetine 30 MG CAP PO SCH (20:29)
[2017-11-25] MEDS: HYDROcodone/Acetaminophen 10/325 mg Tablet PO PRN ×5 (00:10→23:42)
[2017-11-25] MEDS: Enoxaparin Sodium 40 MG/0.4 ML SYRINGE SC SCH (08:06)
[2017-11-25] MEDS: Floranex Packet PO SCH (08:07)
[2017-11-25] MEDS: Ferrous Sulfate 325 MG TAB PO SCH ×2 (08:07→17:08)
[2017-11-25] MEDS: Multivitamin W/ Minerals 1 TAB PO SCH (08:07)
[2017-11-25] MEDS: Aspirin 81 mg Enteric Coated Tablet PO SCH (08:07)
[2017-11-25] MEDS: Nicotine 7 MG PATCH TD SCH (08:07)
[2017-11-25] MEDS: Baclofen 10 MG TAB PO SCH ×3 (08:07→21:52)
[2017-11-25] MEDS: Gabapentin 400 MG CAP PO SCH ×3 (08:07→21:51)
[2017-11-25] MEDS: Polyethylene Glycol 3350 17 GM Packet PO SCH (08:08)
[2017-11-25] MEDS: DULoxetine 30 MG CAP PO SCH (21:52)
[2017-11-25] MEDS: Nystatin Cream 15 GM TUBE TOP PRN (21:54)
[2017-11-26] MEDS: HYDROcodone/Acetaminophen 10/325 mg Tablet PO PRN ×3 (05:54→17:59)
[2017-11-26] MEDS: Polyethylene Glycol 3350 17 GM Packet PO SCH (09:37)
[2017-11-26] MEDS: Ferrous Sulfate 325 MG TAB PO SCH ×2 (09:38→17:05)
[2017-11-26] MEDS: Gabapentin 400 MG CAP PO SCH ×3 (09:38→21:00)
[2017-11-26] MEDS: Baclofen 10 MG TAB PO SCH ×3 (09:38→21:01)
[2017-11-26] MEDS: Floranex Packet PO SCH (09:38)
[2017-11-26] MEDS: Nicotine 7 MG PATCH TD SCH (09:39)
[2017-11-26] MEDS: Multivitamin W/ Minerals 1 TAB PO SCH (09:39)
[2017-11-26] MEDS: Enoxaparin Sodium 40 MG/0.4 ML SYRINGE SC SCH (09:39)
[2017-11-26] MEDS: Aspirin 81 mg Enteric Coated Tablet PO SCH (09:39)
[2017-11-26] MEDS: DULoxetine 30 MG CAP PO SCH (21:00)
[2017-11-27] MEDS: HYDROcodone/Acetaminophen 10/325 mg Tablet PO PRN ×4 (00:19→18:11)
[2017-11-27] MEDS: Polyethylene Glycol 3350 17 GM Packet PO SCH (08:16)
[2017-11-27] MEDS: Nicotine 7 MG PATCH TD SCH (08:16)
[2017-11-27] MEDS: Multivitamin W/ Minerals 1 TAB PO SCH (08:16)
[2017-11-27] MEDS: Floranex Packet PO SCH (08:16)
[2017-11-27] MEDS: Gabapentin 400 MG CAP PO SCH ×3 (08:17→20:23)
[2017-11-27] MEDS: Baclofen 10 MG TAB PO SCH ×3 (08:17→20:24)
[2017-11-27] MEDS: Ferrous Sulfate 325 MG TAB PO SCH ×2 (08:17→17:19)
[2017-11-27] MEDS: Aspirin 81 mg Enteric Coated Tablet PO SCH (08:17)
[2017-11-27] MEDS: DULoxetine 30 MG CAP PO SCH (20:23)
[2017-11-28] MEDS: HYDROcodone/Acetaminophen 10/325 mg Tablet PO PRN ×4 (01:26→20:04)
[2017-11-28] MEDS: Polyethylene Glycol 3350 17 GM Packet PO SCH (07:38)
[2017-11-28] MEDS: Floranex Packet PO SCH (07:38)
[2017-11-28] MEDS: Multivitamin W/ Minerals 1 TAB PO SCH (07:39)
[2017-11-28] MEDS: Baclofen 10 MG TAB PO SCH ×3 (07:39→20:03)
[2017-11-28] MEDS: Aspirin 81 mg Enteric Coated Tablet PO SCH (07:39)
[2017-11-28] MEDS: Gabapentin 400 MG CAP PO SCH ×3 (07:39→20:04)
[2017-11-28] MEDS: Nicotine 7 MG PATCH TD SCH (07:40)
[2017-11-28] MEDS: Ferrous Sulfate 325 MG TAB PO SCH ×2 (07:40→16:49)
[2017-11-28] MEDS: DULoxetine 30 MG CAP PO SCH (20:03)
[2017-11-29] MEDS: HYDROcodone/Acetaminophen 10/325 mg Tablet PO PRN ×4 (04:34→23:40)
[2017-11-29] MEDS: Gabapentin 400 MG CAP PO SCH ×3 (08:36→20:03)
[2017-11-29] MEDS: Aspirin 81 mg Enteric Coated Tablet PO SCH (08:36)
[2017-11-29] MEDS: Baclofen 10 MG TAB PO SCH ×3 (08:36→20:03)
[2017-11-29] MEDS: Floranex Packet PO SCH (08:36)
[2017-11-29] MEDS: Multivitamin W/ Minerals 1 TAB PO SCH (08:36)
[2017-11-29] MEDS: Ferrous Sulfate 325 MG TAB PO SCH ×2 (08:37→16:52)
[2017-11-29] MEDS: Nicotine 7 MG PATCH TD SCH (08:37)
[2017-11-29] MEDS: Polyethylene Glycol 3350 17 GM Packet PO SCH (08:37)
[2017-11-29] MEDS: DULoxetine 30 MG CAP PO SCH (20:03)
[2017-11-30] MEDS: Ferrous Sulfate 325 MG TAB PO SCH (07:43)
[2017-11-30] MEDS: HYDROcodone/Acetaminophen 10/325 mg Tablet PO PRN (07:49)
[2017-11-30 08:12] VITALS: BP 152/67; TEMP 97.7
[2017-11-30] MEDS: Floranex Packet PO SCH (09:47)
[2017-11-30] MEDS: Aspirin 81 mg Enteric Coated Tablet PO SCH (09:48)
[2017-11-30] MEDS: Gabapentin 400 MG CAP PO SCH (09:48)
[2017-11-30] MEDS: Baclofen 10 MG TAB PO SCH (09:48)
[2017-11-30] MEDS: Multivitamin W/ Minerals 1 TAB PO SCH (09:48)
[2017-11-30] MEDS: Nicotine 7 MG PATCH TD SCH (09:49)
[2017-11-30] MEDS: Polyethylene Glycol 3350 17 GM Packet PO SCH (09:49)
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
== END 2017-11-30 11:15 | disposition home health service (06) | DRG 566 ==
LOC: MADMS 18:16
PROVIDERS: ADMIT Family Medicine; ATTEND Family Medicine
PROC: 3E0234Z Introduction of Serum, Toxoid and Vaccine into Muscle, Percutaneous Approach (ICD-10-PCS; principal; 2017-11-13)
DX: S72.002P Fracture of unspecified part of neck of left femur, subsequent encounter for closed fracture with malunion (principal); I95.81 Postprocedural hypotension; E78.5 Hyperlipidemia, unspecified; F17.210 Nicotine dependence, cigarettes, uncomplicated; V89.2XXD Person injured in unspecified motor-vehicle accident, traffic, subsequent encounter; I10 Essential (primary) hypertension; K59.09 Other constipation; F41.9 Anxiety disorder, unspecified; F32.9 Major depressive disorder, single episode, unspecified; M47.9 Spondylosis, unspecified; Z23 Encounter for immunization
CPT/HCPCS: 36415; 80048; 81001; 82728; 83540; 85025; 87086; 87324; 87449; 90471; 90682; A4353; G0008; J1650; Q2036

== ENCOUNTER 2019-01-02 15:33 | Emergency (ER) | payer MEDICARE ==
[~2019-01-02 15:33] MED LIST changes: -Donnatal Elixir 16.2 MG/5 ML UDCUP ONE; -Iopamidol 370 76% 100 ML VIAL ONE; +Sodium Chloride 0.9% 1,000 ML BAG ONE
[2019-01-02 16:04] LABS: #Basophils 0.1 thou/uL (0.0-0.2); #Eosinphils 0.1 thou/uL (0.0-0.7); #Lymphocytes 1.9 thou/uL (1.20-3.40); #Monocytes 0.3 thou/uL (0.11-0.59); #Neutrophils 4.6 thou/uL (1.40-6.50); %Eosinophils 0.9 % (0.0-10.0); %Lymphocytes 27.1 % (21.0-51.0); %Monocytes 4.9 % (0.0-10.0); %Neutrophils 66.2 % (42.0-75.0); Hemoglobin 12.7 g/dL (12.0-16.0); Mean Corpuscular HGB CONC 31.8 g/dL (32.0-36.0); Mean Corpuscular Volume 97.6 fL (78.0-98.0); Mean Platelet Volume 7.1 fL (7.4-10.4); Platelet Count 266 thou/uL (130-400); RBC Distribution Width 14.7 % (11.5-14.5)
[2019-01-02] MEDS ORDERED: Nitroglycerin 0.4 MG TAB 1 EACH ONE (16:06)
[2019-01-02] MEDS ORDERED: Aspirin 325 MG TAB ONE ×2 (16:06→16:07)
[2019-01-02 16:16] LABS: ALT (SGPT) 19 U/L (8-55); AST (SGOT) 32 U/L (5-34); Albumin 4.4 g/dL (3.4-4.8); Alkaline Phosphatase 73 U/L (40-150); Anion Gap 17 mmol/L (10-20); BUN (Urea Nitrogen) 15 mg/dL (9.8-20.1); Bilirubin, Total 0.4 mg/dL (0.2-1.2); Calc. Creatinine Clearance 0 mL/min (70-130); Calcium 9.7 mg/dL (7.8-10.44); Carbon Dioxide 24 mmol/L (23-31); Chloride 100 mmol/L (98-107); Estimated GFR-MDRD 87; Globulin 2.7 g/dL (2.4-3.5); Glucose 119 mg/dL (83-110); Potassium 3.9 mmol/L (3.5-5.1); Protein, Total 7.1 g/dL (6.0-8.3); Sodium 137 mmol/L (136-145)
--- NOTE | 2019-01-02 16:17 | RAD ---
Chest one view HISTORY: Chest pain. COMPARISON: 10/23/2017. FINDINGS:: Cardiac silhouette is magnified by projection. Pulmonary vasculature is unremarkable syste m is midline with aortic calcification. No confluent airspace consolidation or evidence of pneumothorax. Calcified granulomata are consistent with healed granulomatous disease. IMPRESSION: Atherosclerosis. Chronic-type findings are stable.
[2019-01-02] MEDS ORDERED: Ondansetron PF 4 MG/2 ML Vial ONE (16:20)
[2019-01-02] MEDS ORDERED: Acetaminophen 500 MG TAB ONE (17:43)
== END 2019-01-02 18:15 | disposition short-term general hospital (02) ==
LOC: MADERS 15:33
DX: R07.9 Chest pain, unspecified (principal); R00.1 Bradycardia, unspecified; E78.5 Hyperlipidemia, unspecified; I10 Essential (primary) hypertension; F41.9 Anxiety disorder, unspecified; F32.9 Major depressive disorder, single episode, unspecified; F17.210 Nicotine dependence, cigarettes, uncomplicated; Z79.82 Long term (current) use of aspirin; Z79.899 Other long term (current) drug therapy
CPT/HCPCS: 71045; 80053; 83880; 84484; 85025; 93005; 96361; 96374; J2405; J7050

== ENCOUNTER 2019-04-17 11:23 | Emergency (ER) | payer MEDICARE ==
[2019-04-17] MEDS ORDERED: HYDROcodone/Acetaminophen 5/325 mg Tablet ONE (12:25)
--- NOTE | 2019-04-17 13:23 | RAD ---
LEFT KNEE 4 VIEWS: Date: 04/17/19 HISTORY: Left knee pain. FINDINGS/IMPRESSION: There are postop changes and two screws in the patella. No acute fracture, dislocation, or bony destr uction seen. There are mild degenerative changes. Chondrocalcinosis is present. POS: [facility]
--- NOTE | 2019-04-17 13:35 | RAD ---
LEFT HIP 2 VIEWS: Date: 04/17/19 HISTORY: Left hip pain. FINDINGS/IMPRESSION: Comparison made with exam of 11/05/17. There are postop changes of left total hip arthroplasty in good position and alignment. There is inte rval development of lucency at the bone-cement interface in the superior aspect of the acetabulum. Th is is suspicious for loosening. POS: [facility]
[2019-04-17] MEDS ORDERED: Ketorolac Tromethamine 60 MG/2 ML VIAL ONE (15:09)
== END 2019-04-17 15:25 | disposition home or self-care (01) ==
LOC: MADERS 11:23
DX: M25.552 Pain in left hip (principal); M25.562 Pain in left knee; E78.5 Hyperlipidemia, unspecified; I10 Essential (primary) hypertension; F41.9 Anxiety disorder, unspecified; F32.9 Major depressive disorder, single episode, unspecified; F17.210 Nicotine dependence, cigarettes, uncomplicated; Z79.899 Other long term (current) drug therapy; Z79.82 Long term (current) use of aspirin
CPT/HCPCS: 96372; J1885

== ENCOUNTER 2019-11-22 19:20 | Inpatient (IN) | payer MEDICARE ==
[2019-11-22] MEDS ORDERED: Ondansetron ODT 4 MG TAB PO PRN (20:54)
[2019-11-22] MEDS ORDERED: Ibuprofen 800 MG TAB PO PRN (21:18)
[2019-11-22] MEDS ORDERED: HYDROcodone/Acetaminophen 5/325 mg Tablet PO PRN (21:21)
[2019-11-23] MEDS: HYDROcodone/Acetaminophen 5/325 mg Tablet PO PRN ×4 (01:41→19:25)
[2019-11-23] MEDS: Atorvastatin Calcium 10 MG TAB PO SCH (08:30)
[2019-11-23] MEDS: Calcium Carbonate 500 MG ChewTAB PO SCH ×2 (08:30→20:01)
[2019-11-23] MEDS: Aspirin 81 mg Enteric Coated Tablet PO SCH (08:31)
[2019-11-23] MEDS: Gabapentin 400 MG CAP PO SCH ×3 (08:31→20:01)
[2019-11-23] MEDS ORDERED: Acetaminophen 325 MG TAB PO PRN (09:52)
[2019-11-23] MEDS: Nicotine 7 MG PATCH TD SCH (10:41)
--- NOTE | 2019-11-23 16:00 | HP ---
ATTENDING PHYSICIAN: Delfina Linder MD. PRIMARY CARE PROVIDER: Delfina Linder MD. HISTORY OF PRESENT ILLNESS: The patient is a 78-year-old female, who is being admitted for rehabilitation, status post revision of left total hip arthroplasty with acetabular component revision as well as revision of femoral version performed by Dr. Yamil Nolan on November 16, 2019. The patient is being admitted for physical therapy and occupational therapy. At this point in time, the patient states that her pain is well controlled and is motivated to participate in physical therapy. She denies any other complaints at this time. PAST MEDICAL HISTORY: 1. Multiple left hip surgeries. 2. Chronic back pain secondary to severe lumbar stenosis, status post surgery. 3. Hypertension. 4. Chronic tobacco abuse. 5. Hyperlipidemia. 6. Generalized anxiety disorder. 7. Insomnia. 8. Gastroesophageal reflux disease. PAST SURGICAL HISTORY: 1. Left hip replacement in 2017 and again in 2018. 2. ORIF, right radius, left patella, and right ankle. 3. Knee arthroscopy in 2017. 4. Left hip arthroplasty revision. MEDICATIONS: 1. Metoprolol tartrate 25 mg p.o. b.i.d. 2. Hydrochlorothiazide 12.5 mg p.o. daily. 3. Famotidine 20 mg p.o. daily. 4. Cymbalta 60 mg p.o. daily. 5. Gabapentin 800 mg p.o. t.i.d. 6. Pravastatin 10 mg p.o. daily. 7. Trazodone 50 mg p.o. nightly p.r.n. ALLERGIES: 1. NSAIDS, WHICH CAUSES HIVES. 2. ACETAMINOPHEN. 3. CYCLOBENZAPRINE. SOCIAL HISTORY: The patient lives at home. She does report tobacco abuse and smokes 4 to 5 cigarettes per day. She denies alcohol or drug use. REVIEW OF SYSTEMS: GENERAL: The patient denies fever, chills, and night sweats. HEENT: The patient denies headache, vision changes, or eye pain. CARDIOVASCULAR: The patient denies chest pain or palpitations. PULMONARY: The patient denies shortness of breath or cough. GASTROINTESTINAL. The patient denies nausea, vomiting, diarrhea, or constipation. GENITOURINARY: The patient denies dysuria, frequency, or urgency. MUSCULOSKELETAL: The patient reports left hip pain but otherwise denies any weakness. NEUROLOGIC: The patient denies numbness or tingling. SKIN: The patient denies rashes or lesions. PSYCHIATRIC: The patient denies anxiety or depression symptoms. PHYSICAL EXAMINATION: VITAL SIGNS: Temperature 97.6, pulse rate 74, respirations are 18, oxygen 94% on room air, and blood pressure 108/59. GENERAL: The patient is alert and oriented x3. No distress. HEENT: Normocephalic and atraumatic. Extraocular muscles intact. Moist mucous membranes. The patient is edentulous. CARDIOVASCULAR: Regular rate and rhythm with no murmurs, rubs, or gallops. LUNGS: Clear to auscultation bilaterally. No crackles, rhonchi, or wheezes. ABDOMEN: Soft and nontender to palpation. Nondistended. EXTREMITIES: No clubbing, cyanosis, or edema noted. NEUROLOGIC: Cranial nerves II through XII intact grossly. PSYCHIATRIC: Appropriate mood and affect. ASSESSMENT AND PLAN: This is a 78-year-old female with multiple left hip surgeries, status post left hip arthroplasty revision. 1. Status post left hip surgery. The patient is admitted for rehabilitation with physical therapy and occupational therapy, which has been ordered. The patient's pain is well controlled. We will arrange for outpatient orthopedic followup. 2. Hypertension. The patient's home antihypertensive regimen has been resumed and we will monitor blood pressure on a routine basis. 3. Generalized anxiety. The patient's duloxetine has been resumed. 4. Hyperlipidemia. Pravastatin has been restarted. The patient's lipid-lowering medication has been resumed. 5. Insomnia, trazodone has been resumed for p.r.n. use. 6. Gastroesophageal reflux disease. The patient's home medications will be resumed for this as well. 7. Deep vein thrombosis prophylaxis; 81 mg of aspirin will be sufficient as the patient is ambulatory with physical therapy. DISPOSITION: Stable and will depend on patient's improvement and progress with physical therapy. Job ID: [id number]
[2019-11-24] MEDS: HYDROcodone/Acetaminophen 5/325 mg Tablet PO PRN ×3 (05:45→19:39)
[2019-11-24] MEDS: Calcium Carbonate 500 MG ChewTAB PO SCH ×2 (08:33→20:29)
[2019-11-24] MEDS: Nicotine 7 MG PATCH TD SCH (08:33)
[2019-11-24] MEDS: DULoxetine 30 MG CAP PO SCH (08:36)
[2019-11-24] MEDS: Gabapentin 400 MG CAP PO SCH ×3 (08:37→20:28)
[2019-11-24] MEDS: Aspirin 81 mg Enteric Coated Tablet PO SCH (08:38)
[2019-11-24] MEDS: Atorvastatin Calcium 10 MG TAB PO SCH (08:38)
[2019-11-25] MEDS: HYDROcodone/Acetaminophen 5/325 mg Tablet PO PRN ×4 (01:52→19:18)
[2019-11-25] MEDS: DULoxetine 30 MG CAP PO SCH (08:34)
[2019-11-25] MEDS: Calcium Carbonate 500 MG ChewTAB PO SCH ×2 (08:34→20:43)
[2019-11-25] MEDS: Gabapentin 400 MG CAP PO SCH ×3 (08:34→20:43)
[2019-11-25] MEDS: Nicotine 7 MG PATCH TD SCH (08:34)
[2019-11-25] MEDS: Aspirin 81 mg Enteric Coated Tablet PO SCH (08:35)
[2019-11-25] MEDS: Atorvastatin Calcium 10 MG TAB PO SCH (08:35)
[2019-11-26] MEDS: HYDROcodone/Acetaminophen 5/325 mg Tablet PO PRN ×4 (06:15→21:28)
[2019-11-26] MEDS: Aspirin 81 mg Enteric Coated Tablet PO SCH (09:50)
[2019-11-26] MEDS: Calcium Carbonate 500 MG ChewTAB PO SCH ×2 (09:50→21:28)
[2019-11-26] MEDS: Atorvastatin Calcium 10 MG TAB PO SCH (09:50)
[2019-11-26] MEDS: DULoxetine 30 MG CAP PO SCH (09:51)
[2019-11-26] MEDS: Nicotine 7 MG PATCH TD SCH (09:52)
[2019-11-26] MEDS: Gabapentin 400 MG CAP PO SCH ×3 (09:59→21:28)
[2019-11-27] MEDS: HYDROcodone/Acetaminophen 5/325 mg Tablet PO PRN ×4 (07:14→22:02)
[2019-11-27] MEDS: Calcium Carbonate 500 MG ChewTAB PO SCH ×2 (08:35→20:56)
[2019-11-27] MEDS: DULoxetine 30 MG CAP PO SCH (08:36)
[2019-11-27] MEDS: Aspirin 81 mg Enteric Coated Tablet PO SCH (08:36)
[2019-11-27] MEDS: Atorvastatin Calcium 10 MG TAB PO SCH (08:36)
[2019-11-27] MEDS: Gabapentin 400 MG CAP PO SCH ×3 (08:36→20:56)
[2019-11-27] MEDS: Nicotine 7 MG PATCH TD SCH (09:15)
--- NOTE | 2019-11-27 12:00 | PRG ---
DATE OF SERVICE: 11/25/2019 SUBJECTIVE: The patient is a 78-year-old female, currently undergoing [facility] for status post left hip surgery. The patient states that the pain is well controlled. She is participating in physical therapy with no issues. She has no complaints at this time. Denies any chest pain or shortness of breath. OBJECTIVE: VITAL SIGNS: Temperature 97.8, pulse 70, respirations 18, oxygen 97% on room air, blood pressure 147/70. GENERAL: The patient is alert and oriented x3. No distress. HEENT: Normocephalic, atraumatic. Extraocular muscles intact. Moist mucous membranes, edentulous. CARDIOVASCULAR: Regular rate and rhythm with no murmurs, rubs, or gallops. LUNGS: Clear to auscultation bilaterally. No crackles, rhonchi, or wheezes. EXTREMITIES: Well perfused. No clubbing, cyanosis, or peripheral edema. ASSESSMENT AND PLAN: 1. Status post left hip surgery. Patient progressing well with physical therapy. Continue [place] as needed. 2. Hypertension, blood pressure stable. 3. Continue home antihypertensive regimen. 4. Generalized anxiety. 5. Continue duloxetine. 6. Hyperlipidemia. 7. Continue pravastatin. 8. Insomnia. Continue trazodone p.r.n. 9. Gastroesophageal reflux disease: Continue home medications. 10. Deep venous thrombosis prophylaxis, 81 mg of aspirin. Continue physical therapy. Job ID: [id number]
[2019-11-28] MEDS: HYDROcodone/Acetaminophen 5/325 mg Tablet PO PRN ×5 (05:04→22:04)
[2019-11-28] MEDS: Calcium Carbonate 500 MG ChewTAB PO SCH ×2 (07:54→20:47)
[2019-11-28] MEDS: Aspirin 81 mg Enteric Coated Tablet PO SCH (07:55)
[2019-11-28] MEDS: Gabapentin 400 MG CAP PO SCH ×3 (07:55→20:47)
[2019-11-28] MEDS: DULoxetine 30 MG CAP PO SCH (07:55)
[2019-11-28] MEDS: Atorvastatin Calcium 10 MG TAB PO SCH (07:55)
[2019-11-28] MEDS: Nicotine 7 MG PATCH TD SCH (11:16)
[2019-11-29] MEDS: HYDROcodone/Acetaminophen 5/325 mg Tablet PO PRN ×4 (02:12→19:44)
[2019-11-29] MEDS: Atorvastatin Calcium 10 MG TAB PO SCH (08:07)
[2019-11-29] MEDS: Gabapentin 400 MG CAP PO SCH ×3 (08:07→20:45)
[2019-11-29] MEDS: DULoxetine 30 MG CAP PO SCH (08:07)
[2019-11-29] MEDS: Calcium Carbonate 500 MG ChewTAB PO SCH ×2 (08:07→20:44)
[2019-11-29] MEDS: Aspirin 81 mg Enteric Coated Tablet PO SCH (08:07)
[2019-11-29] MEDS: Nicotine 7 MG PATCH TD SCH (08:08)
[2019-11-29] MEDS ORDERED: Sodium Chloride Irrig Solution 250 ML BOT ONE (12:50)
--- NOTE | 2019-11-29 22:02 | PRG ---
DATE OF SERVICE: 11/28/2019 SUBJECTIVE: The patient was seen and examined at the bedside and the patient reports the pain is well controlled. She states that she did have some spasms that woke her up in the middle of the night, but these were responsive to her pain medications. Otherwise, she is participating well with physical therapy and has no complaints. Denies any chest pain or shortness of breath. OBJECTIVE: VITAL SIGNS: Temperature 97.8, pulse 74, respirations 18, oxygen saturation 96% on room air, and blood pressure 126/37. GENERAL: The patient is alert and oriented x3, in no apparent distress. She is currently seated in a wheelchair with a brace on her waist and around her hips. HEENT: Normocephalic and atraumatic. Extraocular muscles intact. Moist mucous membranes. Edentulous. CARDIOVASCULAR: Regular rate and rhythm with no murmurs, rubs, or gallops. LUNGS: Clear to auscultation bilaterally. No crackles, wheezes, or rhonchi. EXTREMITIES: Well perfused. No clubbing, cyanosis, or peripheral edema. NEUROLOGIC: Cranial nerves 2 through 12 intact grossly. No focal deficits. PSYCHIATRIC: Appropriate mood and affect. ASSESSMENT AND PLAN: 1. Status post left hip surgery. The patient is progressing well with physical therapy. Continue [place] as needed. 2. Physical debility as above. 3. Hypertension. The patient's blood pressure this morning was slightly low, however, blood pressures have been stable. Continue to monitor. 4. Generalized anxiety. Continue duloxetine. 5. Hyperlipidemia. Continue pravastatin. 6. Insomnia. Continue the patient's trazodone p.r.n. 7. Gastroesophageal reflux disease. Resume the patient's home medications. 8. Deep venous thrombosis. Continue 81 mg of aspirin. Job ID: [id number]
[2019-11-30] MEDS: HYDROcodone/Acetaminophen 5/325 mg Tablet PO PRN ×4 (03:54→20:38)
[2019-11-30] MEDS: Atorvastatin Calcium 10 MG TAB PO SCH (09:03)
[2019-11-30] MEDS: Gabapentin 400 MG CAP PO SCH ×3 (09:03→20:34)
[2019-11-30] MEDS: Nicotine 7 MG PATCH TD SCH (09:03)
[2019-11-30] MEDS: Aspirin 81 mg Enteric Coated Tablet PO SCH (09:04)
[2019-11-30] MEDS: Calcium Carbonate 500 MG ChewTAB PO SCH ×2 (09:04→20:34)
[2019-11-30] MEDS: DULoxetine 30 MG CAP PO SCH (09:04)
[2019-12-01] MEDS: HYDROcodone/Acetaminophen 5/325 mg Tablet PO PRN ×5 (04:07→20:16)
[2019-12-01] MEDS: Atorvastatin Calcium 10 MG TAB PO SCH (08:20)
[2019-12-01] MEDS: DULoxetine 30 MG CAP PO SCH (08:20)
[2019-12-01] MEDS: Gabapentin 400 MG CAP PO SCH ×3 (08:20→20:15)
[2019-12-01] MEDS: Calcium Carbonate 500 MG ChewTAB PO SCH ×2 (08:21→20:15)
[2019-12-01] MEDS: Aspirin 81 mg Enteric Coated Tablet PO SCH (08:21)
[2019-12-01] MEDS: Nicotine 7 MG PATCH TD SCH (10:09)
[2019-12-02] MEDS: HYDROcodone/Acetaminophen 5/325 mg Tablet PO PRN ×3 (08:21→20:37)
[2019-12-02] MEDS: DULoxetine 30 MG CAP PO SCH (08:22)
[2019-12-02] MEDS: Calcium Carbonate 500 MG ChewTAB PO SCH ×2 (08:22→20:37)
[2019-12-02] MEDS: Gabapentin 400 MG CAP PO SCH ×3 (08:22→20:37)
[2019-12-02] MEDS: Atorvastatin Calcium 10 MG TAB PO SCH (08:22)
[2019-12-02] MEDS: Aspirin 81 mg Enteric Coated Tablet PO SCH (08:22)
[2019-12-02] MEDS: Nicotine 7 MG PATCH TD SCH (08:23)
[2019-12-03] MEDS: HYDROcodone/Acetaminophen 5/325 mg Tablet PO PRN ×4 (02:01→21:02)
[2019-12-03] MEDS: DULoxetine 30 MG CAP PO SCH (08:39)
[2019-12-03] MEDS: Gabapentin 400 MG CAP PO SCH ×3 (08:39→21:02)
[2019-12-03] MEDS: Atorvastatin Calcium 10 MG TAB PO SCH (08:39)
[2019-12-03] MEDS: Nicotine 7 MG PATCH TD SCH (08:40)
[2019-12-03] MEDS: Aspirin 81 mg Enteric Coated Tablet PO SCH (08:40)
[2019-12-03] MEDS: Calcium Carbonate 500 MG ChewTAB PO SCH ×2 (08:40→21:02)
[2019-12-04] MEDS: HYDROcodone/Acetaminophen 5/325 mg Tablet PO PRN ×4 (05:15→21:06)
[2019-12-04] MEDS: Gabapentin 400 MG CAP PO SCH ×3 (08:14→21:06)
[2019-12-04] MEDS: DULoxetine 30 MG CAP PO SCH (08:14)
[2019-12-04] MEDS: Aspirin 81 mg Enteric Coated Tablet PO SCH (08:14)
[2019-12-04] MEDS: Atorvastatin Calcium 10 MG TAB PO SCH (08:14)
[2019-12-04] MEDS: Calcium Carbonate 500 MG ChewTAB PO SCH ×2 (08:14→21:06)
[2019-12-04] MEDS: Nicotine 7 MG PATCH TD SCH (08:26)
[2019-12-05] MEDS: HYDROcodone/Acetaminophen 5/325 mg Tablet PO PRN ×5 (03:59→21:15)
[2019-12-05] MEDS: Calcium Carbonate 500 MG ChewTAB PO SCH ×2 (08:12→21:15)
[2019-12-05] MEDS: Atorvastatin Calcium 10 MG TAB PO SCH (08:13)
[2019-12-05] MEDS: Gabapentin 400 MG CAP PO SCH ×3 (08:13→21:14)
[2019-12-05] MEDS: DULoxetine 30 MG CAP PO SCH (08:13)
[2019-12-05] MEDS: Aspirin 81 mg Enteric Coated Tablet PO SCH (08:13)
[2019-12-05] MEDS: Nicotine 7 MG PATCH TD SCH (08:14)
[2019-12-06] MEDS: HYDROcodone/Acetaminophen 5/325 mg Tablet PO PRN ×3 (07:04→20:53)
[2019-12-06] MEDS: Gabapentin 400 MG CAP PO SCH ×3 (08:04→20:50)
[2019-12-06] MEDS: DULoxetine 30 MG CAP PO SCH (08:04)
[2019-12-06] MEDS: Aspirin 81 mg Enteric Coated Tablet PO SCH (08:05)
[2019-12-06] MEDS: Atorvastatin Calcium 10 MG TAB PO SCH (08:06)
[2019-12-06] MEDS: Calcium Carbonate 500 MG ChewTAB PO SCH ×2 (08:06→20:49)
[2019-12-06] MEDS: Hydrochlorothiazide 25 MG TAB PO SCH (08:07)
[2019-12-06] MEDS: Nicotine 7 MG PATCH TD SCH (08:19)
[2019-12-06] MEDS: Docusate 100 MG CAP PO SCH (20:49)
[2019-12-06] MEDS: Polyethylene Glycol 3350 17 GM Packet PO SCH (20:50)
[2019-12-06] MEDS ORDERED: Polyethylene Glycol 3350 17 GM Packet PO SCH (21:00)
[2019-12-07] MEDS: HYDROcodone/Acetaminophen 5/325 mg Tablet PO PRN ×4 (02:01→19:39)
[2019-12-07] MEDS: Calcium Carbonate 500 MG ChewTAB PO SCH ×2 (08:13→20:35)
[2019-12-07] MEDS: DULoxetine 30 MG CAP PO SCH (08:13)
[2019-12-07] MEDS: Aspirin 81 mg Enteric Coated Tablet PO SCH (08:13)
[2019-12-07] MEDS: Docusate 100 MG CAP PO SCH ×2 (08:13→20:36)
[2019-12-07] MEDS: Gabapentin 400 MG CAP PO SCH ×3 (08:14→20:35)
[2019-12-07] MEDS: Hydrochlorothiazide 25 MG TAB PO SCH (08:14)
[2019-12-07] MEDS: Atorvastatin Calcium 10 MG TAB PO SCH (08:15)
[2019-12-07] MEDS: Nicotine 7 MG PATCH TD SCH (08:15)
[2019-12-07] MEDS: Polyethylene Glycol 3350 17 GM Packet PO SCH (20:35)
[2019-12-08] MEDS: HYDROcodone/Acetaminophen 5/325 mg Tablet PO PRN ×2 (03:47→08:09)
[2019-12-08] MEDS: Nicotine 7 MG PATCH TD SCH (08:08)
[2019-12-08] MEDS: Aspirin 81 mg Enteric Coated Tablet PO SCH (08:09)
[2019-12-08] MEDS: Docusate 100 MG CAP PO SCH ×2 (08:09→20:03)
[2019-12-08] MEDS: Atorvastatin Calcium 10 MG TAB PO SCH (08:10)
[2019-12-08] MEDS: Calcium Carbonate 500 MG ChewTAB PO SCH ×2 (08:10→20:03)
[2019-12-08] MEDS: Hydrochlorothiazide 25 MG TAB PO SCH (08:10)
[2019-12-08] MEDS: DULoxetine 30 MG CAP PO SCH (08:10)
[2019-12-08] MEDS: Gabapentin 400 MG CAP PO SCH ×3 (08:10→20:02)
[2019-12-08] MEDS: traMADol HCl 50 MG TAB PO PRN ×2 (14:22→20:49)
[2019-12-08 14:38] VITALS: BMI 29.4
--- NOTE | 2019-12-08 16:06 | PRG ---
DATE OF SERVICE: 12/08/2019 SUBJECTIVE: The patient was seen and examined at the bedside. She complains of pain that is controlled with her current pain medications, otherwise has no complaints at this time. The patient expresses desire to be able to return home due to wanting to be able to deal with stressful situations at home. No other complaints at this time. Denies chest pain or shortness of breath. OBJECTIVE: VITAL SIGNS: Temperature 97.8, pulse 69, respirations 16, oxygen 97% on room air, and blood pressure 146/68. GENERAL: The patient is alert and oriented x3, in no apparent distress. Currently seated in a wheelchair. HEENT: Normocephalic, atraumatic. Extraocular muscles intact. Moist mucous membranes. CARDIOVASCULAR: Regular rate and rhythm. No murmurs, rubs, or gallops. LUNGS: Clear to auscultation bilaterally. No crackles, wheezes, or rhonchi. EXTREMITIES: Well perfused. No clubbing, cyanosis, or edema. NEUROLOGICAL: Cranial nerves II through XII intact grossly. No focal deficits. SKIN: No rashes or other lesions. Left hip incision well healing. PSYCHIATRIC: Appropriate mood and affect. ASSESSMENT AND PLAN: 1. Status post left hip surgery. The patient is progressing well with physical therapy and occupational therapy. We will continue pain medications. We will transition the patient from [place] to tramadol in preparation for discharge home tomorrow. We will also order outpatient physical therapy and occupational therapy as well as home health with [facility]. 2. Physical debility as above. 3. Hypertension. Blood pressure is at goal for her age. She will continue hydrochlorothiazide at this time. 4. Hyperlipidemia. Continue pravastatin. 5. Insomnia. Continue trazodone p.r.n. 6. Deep venous thrombosis prophylaxis. The patient is encouraged to ambulate with physical therapy. Also continue 81 mg of aspirin daily. Disposition, stable. Prepare for discharge to home tomorrow on December 09, 2019. Job ID: [id number]
[2019-12-08] MEDS: Polyethylene Glycol 3350 17 GM Packet PO SCH (20:04)
[2019-12-09] MEDS: traMADol HCl 50 MG TAB PO PRN (03:53)
[2019-12-09 09:38] VITALS: BP 112/64; TEMP 97.2
[2019-12-09] MEDS: Calcium Carbonate 500 MG ChewTAB PO SCH (09:56)
[2019-12-09] MEDS: Atorvastatin Calcium 10 MG TAB PO SCH (09:56)
[2019-12-09] MEDS: DULoxetine 30 MG CAP PO SCH (09:56)
[2019-12-09] MEDS: Docusate 100 MG CAP PO SCH (09:56)
[2019-12-09] MEDS: Gabapentin 400 MG CAP PO SCH (09:56)
[2019-12-09] MEDS: Nicotine 7 MG PATCH TD SCH (09:57)
[2019-12-09] MEDS: Aspirin 81 mg Enteric Coated Tablet PO SCH (09:57)
[2019-12-09] MEDS: Hydrochlorothiazide 25 MG TAB PO SCH (09:57)
== END 2019-12-09 11:38 | disposition home or self-care (01) | DRG 561 ==
LOC: MADMS 19:20
PROVIDERS: ADMIT Family Medicine; ATTEND Family Medicine
DX: Z47.1 Aftercare following joint replacement surgery (principal); I10 Essential (primary) hypertension; F17.200 Nicotine dependence, unspecified, uncomplicated; E78.5 Hyperlipidemia, unspecified; F41.1 Generalized anxiety disorder; K21.9 Gastro-esophageal reflux disease without esophagitis; G47.00 Insomnia, unspecified; Z96.642 Presence of left artificial hip joint

== ENCOUNTER 2020-02-24 10:58 | Outpatient (CLI) | payer MEDICARE ==
--- NOTE | 2020-02-24 12:32 | RAD ---
RIGHT ANKLE 3 VIEWS: Date: 02/24/2020 HISTORY: Fall. COMPARISON: Fluoroscopic image from 2015. FINDINGS: Similar appearance of the retrograde cannulated screw in the medial malleolus. Lateral plate and scre w fixation of distal fibula is intact. No widening of the ankle mortise. No acute fracture or malalignment. IMPRESSION: No acute fracture or malalignment. Intact hardware. POS: HOME
--- NOTE | 2020-02-24 12:33 | RAD ---
LUMBAR SPINE 3 VIEWS: Date: 02/24/2020 HISTORY: Fall. COMPARISON: None. FINDINGS/IMPRESSION: There is mild dextroscoliosis of the lumbar spine. Laminectomy changes L3-L5. Moderate L4-5 and L5-S1 disc space narrowing. No acute fracture of the lumbar spine. Intact similar appearing left femoral hardware. POS: HOME
== END 2020-02-24 10:59 | disposition home or self-care (01) ==
LOC: MADRAD 10:58
PROVIDERS: ATTEND Family Medicine
DX: S99.911A Unspecified injury of right ankle, initial encounter (principal); M54.5 Low back pain; M41.86 Other forms of scoliosis, lumbar region; M48.061 Spinal stenosis, lumbar region without neurogenic claudication; Z98.890 Other specified postprocedural states
CPT/HCPCS: 72100

== ENCOUNTER 2020-07-03 10:27 | Emergency (ER) | payer MEDICARE, OTHER ==
[2020-07-03] MEDS ORDERED: Ondansetron PF 4 MG/2 ML Vial ONE (11:34)
[2020-07-03] MEDS ORDERED: Sodium Chloride 0.9% 1,000 ML ONE (11:34)
[2020-07-03] MEDS ORDERED: Loperamide HCl 2 MG CAP ONE (11:34)
[2020-07-03 12:22] LABS: #Lymphocytes 1.3 thou/uL (1.20-3.40); #Monocytes 0.3 thou/uL (0.11-0.59); #Neutrophils 4.1 thou/uL (1.40-6.50); %Basophils 0.7 % (0.0-1.0); %Eosinophils 0.3 % (0.0-10.0); %Lymphocytes 22.7 % (21.0-51.0); %Monocytes 4.4 % (0.0-10.0); %Neutrophils 71.9 % (42.0-75.0); Hemoglobin 12.7 g/dL (12.0-16.0); Mean Corpuscular HGB CONC 30.4 g/dL (32.0-36.0); Mean Corpuscular Hemoglobin 29.2 pg (27.0-31.0); Mean Corpuscular Volume 95.8 fL (78.0-98.0); Mean Platelet Volume 8.5 fL (7.4-10.4); Platelet Count 288 thou/uL (130-400); RBC Distribution Width 14.8 % (11.5-14.5); Red Blood Cell (RBC) Count 4.34 mill/uL (4.20-5.40); White Blood Cell (WBC) Count 5.6 thou/uL (4.8-10.8)
[2020-07-03 12:40] LABS: ALT (SGPT) 16 U/L (8-55); AST (SGOT) 22 U/L (5-34); Albumin 4.2 g/dL (3.4-4.8); Alkaline Phosphatase 87 U/L (40-110); Anion Gap 16 mmol/L (10-20); BUN (Urea Nitrogen) 15 mg/dL (9.8-20.1); Bilirubin, Total 0.4 mg/dL (0.2-1.2); Calc. Creatinine Clearance 0 mL/min (70-130); Calcium 9.5 mg/dL (7.8-10.44); Carbon Dioxide 28 mmol/L (23-31); Chloride 104 mmol/L (98-107); Estimated GFR-MDRD 80; Glucose 115 mg/dL (83-110); Potassium 3.8 mmol/L (3.5-5.1); Protein, Total 7.2 g/dL (6.0-8.3); Sodium 144 mmol/L (136-145)
[2020-07-03 12:41] LABS: CRP (Inflammatory) Less than 0.50 mg/dL (= or < 0.5); Lipase 12 U/L (8-78)
[2020-07-03] MEDS ORDERED: Dicyclomine 10 MG CAP ONE (14:19)
[2020-07-03] MEDS ORDERED: Acetaminophen 500 MG TAB ONE (15:10)
[2020-07-05 14:15] LABS: SARS-CoV-2 MS2 Positive; SARS-CoV-2 N Gene Negative; SARS-CoV-2 S Gene Negative; SARS-CoV-2 by NAA Not Detected (NotDetected); SARS-CoV-2 orf1ab Negative
== END 2020-07-03 15:20 | disposition home or self-care (01) ==
LOC: MADERS 10:27
DX: A08.4 Viral intestinal infection, unspecified (principal); K21.9 Gastro-esophageal reflux disease without esophagitis; E78.5 Hyperlipidemia, unspecified; E78.00 Pure hypercholesterolemia, unspecified; I10 Essential (primary) hypertension; F41.9 Anxiety disorder, unspecified; F17.210 Nicotine dependence, cigarettes, uncomplicated; Z79.82 Long term (current) use of aspirin; Z79.899 Other long term (current) drug therapy
CPT/HCPCS: 36415; 80053; 83605; 83690; 85025; 86140; 87635; 96361; 96374; J2405; J7050; U0003

== ENCOUNTER 2020-10-25 13:14 | Emergency (ER) | payer MEDICARE ==
[~2020-10-25 13:14] MED LIST changes: +Iopamidol 370 76% 125 ML VIAL FS ONE; -Sodium Chloride 0.9% 1,000 ML BAG ONE
--- NOTE | 2020-10-25 13:49 | CT ---
Head CT without contrast 10/25/2020: COMPARISON: 06/04/2020 HISTORY: Stroke protocol, left-sided weakness and tingling TECHNIQUE: Axial CT imaging at 5 mm intervals from vertex through skull base without contrast. Johnson l and sagittal reformatted imaging obtained. FINDINGS: There is a small new hypodensity in the right cerebellar hemisphere measuring 8-9 mm sugges ting a new age indeterminant small infarction.. There is no intracranial hemorrhage, midline shift, or mass effect. There is extensive multifocal periventricular, deep, and subcortical white matter hypodensity, eviden ce of small vessel disease. The imaged paranasal sinuses and mastoid air cells appear well-aerated. No displaced calvarial fractu re is seen. IMPRESSION: Prominent small vessel disease. Findings suggesting a new subcentimeter infarction within the right cerebellar hemisphere. This would be better assessed with follow-up brain MRI. No intracranial hemorrhage. Results discussed with Dr. Webb at 1:40 PM 10/25/2020
[2020-10-25 13:50] LABS: #Basophils 0.1 thou/uL (0.0-0.2); #Eosinphils 0.4 thou/uL (0.0-0.7); #Monocytes 0.5 thou/uL (0.11-0.59); #Neutrophils 6.4 thou/uL (1.40-6.50); %Basophils 0.9 % (0.0-1.0); %Eosinophils 4.3 % (0.0-10.0); %Lymphocytes 21.6 % (21.0-51.0); %Neutrophils 68.2 % (42.0-75.0); Hemoglobin 11.8 g/dL (12.0-16.0); Mean Corpuscular HGB CONC 31.4 g/dL (32.0-36.0); Mean Corpuscular Hemoglobin 30.9 pg (27.0-31.0); Mean Corpuscular Volume 98.3 fL (78.0-98.0); Platelet Count 222 thou/uL (130-400); RBC Distribution Width 15.5 % (11.5-14.5); Red Blood Cell (RBC) Count 3.83 mill/uL (4.20-5.40); White Blood Cell (WBC) Count 9.4 thou/uL (4.8-10.8)
[2020-10-25 13:58] LABS: INR-International Normal Ratio 0.9; PTT 38.2 sec (22.9-36.1); Prothrombin Time 12.8 sec (12.0-14.7)
[2020-10-25 14:09] LABS: ALT (SGPT) 33 U/L (8-55); AST (SGOT) 28 U/L (5-34); Albumin 4.2 g/dL (3.4-4.8); Alkaline Phosphatase 76 U/L (40-110); BUN (Urea Nitrogen) 27 mg/dL (9.8-20.1); Bilirubin, Total 0.4 mg/dL (0.2-1.2); Calc. Creatinine Clearance 0 mL/min (70-130); Carbon Dioxide 25 mmol/L (23-31); Globulin 2.8 g/dL (2.4-3.5); Glucose 90 mg/dL (83-110)
[2020-10-25 14:24] LABS: Chloride 106 mmol/L (98-107); Sodium 144 mmol/L (136-145)
[2020-10-25] MEDS ORDERED: Clopidogrel Bisulfate 75 MG TAB ONE (14:29)
--- NOTE | 2020-10-25 14:29 | CT ---
CT angiogram of the head and neck: 10/25/2020 HISTORY: Left-sided weakness and tingling TECHNIQUE: Axial CT imaging at 1.25 mm intervals from the lung apices through the vertex with IV cont rast using CT angiogram protocol. Coronal and sagittal 3-D reformatted imaging obtained. FINDINGS: Motion limited assessment of the lung apices demonstrates nonspecific mild increased linear interstitial density and evidence of a left upper lobe granuloma. The origin of the left subclavian artery, left common carotid artery, innominate artery, right subcla vian artery, and right common carotid artery appear patent. There is atherosclerotic calcification at the origin of the left and the right subclavian arteries. The origin of the right common carotid a rtery is not well assessed secondary to motion and streak artifact from adjacent venous contrast media. The origin of the right vertebral artery is not optimally assessed secondary to streak artifact and m otion. The bilateral vertebral arteries are patent. The left vertebral artery is dominant. The basilar artery and its branches appear patent. No saccular aneurysm, high-grade stenosis, or vasc ular occlusion is evident within the posterior circulation. On the basis of NASCET criteria, no hemodynamically significant stenosis is seen involving the common carotid artery on either side. There is partially calcified plaque involving the proximal ICA bilaterally. The internal carotid artery demonstrates a medialized retropharyngeal course bilaterally . The mid and distal cervical portions of bilateral internal carotid arteries demonstrates significant tortuosity with no hemodynamically significant stenosis. There is mild atherosclerotic calcification involving the cavernous carotid arteries bilaterally. The A1 segment appears patent bilaterally. The region of the anterior communicating artery appears wi thin normal limits. The distal anterior cerebral arteries appear grossly unremarkable bilaterally. The ICA bifurcation and the M1 segment appears unremarkable bilaterally. Bilateral distal MCA branche s appear grossly unremarkable bilaterally. There is no saccular aneurysm, high-grade stenosis, or vascular occlusion evident involving the anterior circulation on either side. No lymphadenopathy is noted within the neck. The retroantral fat, parapharyngeal fat, parotid glands, submandibular glands, and aerodigestive tract demonstrates no acute findings. There is a small hypoechoic density within the right cerebellar hemisphere measuring 7-8 mm. Review of the osseous structures demonstrates multilevel degenerative change within the cervical spin e including the atlantoaxial interspace and multiple levels within the cervical spine which includes mild anterolisthesis at C3-4 and C7-T1 as well as multilevel mid and lower cervical spine fa cet and uncovertebral osteophyte formation. IMPRESSION: No evidence for hemodynamically significant stenosis involving the arterial structures of the neck. No evidence for intracranial arterial thrombus. Tiny focus of hypodensity within the right cerebellar hemisphere consistent with an age indeterminant infarction which is new since the 06/04/2020 examination. Acuity could be assessed via MRI. Results discussed with Dr. Webb at 2:20 PM 10/25/2020
[2020-10-25] MEDS ORDERED: Potassium Chloride 20 MEQ TAB ONE (14:30)
== END 2020-10-25 17:08 | disposition short-term general hospital (02) ==
LOC: MADERS 13:14
DX: I63.9 Cerebral infarction, unspecified (principal); K21.9 Gastro-esophageal reflux disease without esophagitis; E78.5 Hyperlipidemia, unspecified; I10 Essential (primary) hypertension; F17.210 Nicotine dependence, cigarettes, uncomplicated; Z79.899 Other long term (current) drug therapy
CPT/HCPCS: 36415; 70450; 70496; 70498; 80053; 84484; 85025; 85610; 85730; 93005; Q9967

== ENCOUNTER 2020-10-29 12:19 | Emergency (ER) | payer MEDICARE | END 2020-10-29 13:10 | disposition home or self-care (01) | LOC: MADERS 12:19 | DX: S90.32XA Contusion of left foot, initial encounter (principal); K21.9 Gastro-esophageal reflux disease without esophagitis; E78.5 Hyperlipidemia, unspecified; E78.00 Pure hypercholesterolemia, unspecified; I10 Essential (primary) hypertension; F17.210 Nicotine dependence, cigarettes, uncomplicated; Z87.11 Personal history of peptic ulcer disease; Z79.899 Other long term (current) drug therapy; Z79.82 Long term (current) use of aspirin; X58.XXXA Exposure to other specified factors, initial encounter | CPT/HCPCS: 99283 ==

== ENCOUNTER 2020-12-06 14:15 | Emergency (ER) | payer MEDICARE, OTHER, SELFPAY | END 2020-12-06 16:21 | disposition home or self-care (01) | LOC: MADERS 14:15 | DX: S73.102A Unspecified sprain of left hip, initial encounter (principal); S63.501A Unspecified sprain of right wrist, initial encounter; K21.9 Gastro-esophageal reflux disease without esophagitis; E78.5 Hyperlipidemia, unspecified; E78.00 Pure hypercholesterolemia, unspecified; I10 Essential (primary) hypertension; F17.210 Nicotine dependence, cigarettes, uncomplicated; Z79.82 Long term (current) use of aspirin; Z79.899 Other long term (current) drug therapy; W19.XXXA Unspecified fall, initial encounter ==

== ENCOUNTER 2021-10-03 11:28 | Emergency (ER) | payer MEDICARE ==
[2021-10-03] MEDS ORDERED: Morphine 4 MG/ML VIAL ONE (11:59)
[2021-10-03 13:20] LABS: #Lymphocytes 1.3 thou/uL (1.20-3.40); #Monocytes 0.3 thou/uL (0.11-0.59); #Neutrophils 2.5 thou/uL (1.40-6.50); %Basophils 0.8 % (0.0-1.0); %Eosinophils 0.9 % (0.0-10.0); %Lymphocytes 30.7 % (21.0-51.0); %Monocytes 7.1 % (0.0-10.0); %Neutrophils 60.5 % (42.0-75.0); Hemoglobin 10.8 g/dL (12.0-16.0); Mean Corpuscular HGB CONC 29.5 g/dL (32.0-36.0); Mean Corpuscular Hemoglobin 28.8 pg (27.0-31.0); Mean Corpuscular Volume 97.7 fL (78.0-98.0); Mean Platelet Volume 5.7 fL (7.4-10.4); Platelet Count 270 thou/uL (130-400); Red Blood Cell (RBC) Count 3.73 mill/uL (4.20-5.40); White Blood Cell (WBC) Count 4.1 thou/uL (4.8-10.8)
[2021-10-03 13:29] LABS: Anion Gap 13 mmol/L (10-20); BUN (Urea Nitrogen) 23 mg/dL (9.8-20.1); Calc. Creatinine Clearance 0 mL/min (70-130); Calcium 9.6 mg/dL (7.8-10.44); Carbon Dioxide 26 mmol/L (23-31); Chloride 109 mmol/L (98-107); Glucose 104 mg/dL (83-110); Potassium 3.9 mmol/L (3.5-5.1); Sodium 144 mmol/L (136-145)
[2021-10-03 13:30] LABS: Anisocytosis SLIGHT = 6-15 cells (100X) (0-5/hpf); Platelet Morphology Comment Appears Adequate
[2021-10-03] MEDS ORDERED: traMADol HCl 50 MG TAB ONE (15:35)
[2021-10-03] MEDS ORDERED: Loperamide HCl 2 MG CAP ONE (15:36)
== END 2021-10-03 16:16 | disposition home or self-care (01) ==
LOC: MADERS 11:28
DX: S70.02XA Contusion of left hip, initial encounter (principal); I10 Essential (primary) hypertension; E78.5 Hyperlipidemia, unspecified; K21.9 Gastro-esophageal reflux disease without esophagitis; E78.00 Pure hypercholesterolemia, unspecified; Z87.891 Personal history of nicotine dependence; Z79.82 Long term (current) use of aspirin; Z79.899 Other long term (current) drug therapy
CPT/HCPCS: 80048; 85025; 96374; J2270

== ENCOUNTER 2021-10-16 14:20 | Emergency (ER) | payer MEDICARE ==
[2021-10-16] MEDS ORDERED: Iopamidol 370 76% 100 ML VIAL IV ONE (14:21)
[2021-10-16 15:32] LABS: #Lymphocytes 0.9 thou/uL (1.20-3.40); #Monocytes 0.2 thou/uL (0.11-0.59); #Neutrophils 2.8 thou/uL (1.40-6.50); %Basophils 0.5 % (0.0-1.0); %Eosinophils 1.2 % (0.0-10.0); %Lymphocytes 21.9 % (21.0-51.0); %Neutrophils 70.4 % (42.0-75.0); Hemoglobin 10.1 g/dL (12.0-16.0); Mean Corpuscular HGB CONC 29.8 g/dL (32.0-36.0); Mean Corpuscular Hemoglobin 28.8 pg (27.0-31.0); Mean Corpuscular Volume 96.7 fL (78.0-98.0); Mean Platelet Volume 5.9 fL (7.4-10.4); Platelet Count 212 thou/uL (130-400); RBC Distribution Width 17.3 % (11.5-14.5)
[2021-10-16 15:45] LABS: ALT (SGPT) 13 U/L (8-55); AST (SGOT) 30 U/L (5-34); Albumin 3.2 g/dL (3.4-4.8); Alkaline Phosphatase 61 U/L (40-110); Anion Gap 14 mmol/L (10-20); BUN (Urea Nitrogen) 14 mg/dL (9.8-20.1); Bilirubin, Total 0.2 mg/dL (0.2-1.2); Calc. Creatinine Clearance 0 mL/min (70-130); Carbon Dioxide 26 mmol/L (23-31); Chloride 108 mmol/L (98-107); Globulin 2.7 g/dL (2.4-3.5); Glucose 99 mg/dL (83-110); Magnesium 1.8 mg/dL (1.6-2.6); Potassium 3.5 mmol/L (3.5-5.1); Protein, Total 5.9 g/dL (5.8-8.1); Sodium 144 mmol/L (136-145)
[2021-10-16 16:17] LABS: Lipase Less than 4 U/L (8-78)
[2021-10-16] MEDS ORDERED: Ondansetron PF 4 MG/2 ML Vial ONE (16:41)
[2021-10-16] MEDS ORDERED: Dicyclomine 10 MG CAP ONE (16:41)
[2021-10-16] MEDS ORDERED: Piperacillin/Tazobactam 4.5 GM VIAL ONE (17:40)
[2021-10-16] MEDS ORDERED: Sodium Chloride 0.9% 100 ML ONE (17:41)
[2021-10-16] MEDS ORDERED: Morphine 4 MG/ML VIAL ONE (19:39)
== END 2021-10-16 19:51 | disposition short-term general hospital (02) ==
LOC: MADERS 14:20
DX: K81.9 Cholecystitis, unspecified (principal); K21.9 Gastro-esophageal reflux disease without esophagitis; E78.5 Hyperlipidemia, unspecified; I10 Essential (primary) hypertension; F17.210 Nicotine dependence, cigarettes, uncomplicated; Z79.899 Other long term (current) drug therapy; Z79.82 Long term (current) use of aspirin
CPT/HCPCS: 36415; 74176; 74177; 80053; 82274; 83605; 83690; 83735; 85025; 87040; 94760; 96365; 96366; 96375; J2270; J2405; J2543; J3490; Q9967

== ENCOUNTER 2021-12-05 15:00 | Emergency (ER) | payer MEDICARE ==
[2021-12-05] MEDS ORDERED: Gabapentin 100 MG CAP ONE (15:27)
[2021-12-05] MEDS ORDERED: Lidocaine 5% Patch TD SCH (15:30)
[2021-12-06] MEDS ORDERED: Transdermal Patch Removal TOP SCH (03:30)
== END 2021-12-05 17:00 | disposition home or self-care (01) ==
LOC: MADERS 15:00
DX: M79.605 Pain in left leg (principal); Z76.0 Encounter for issue of repeat prescription; K21.9 Gastro-esophageal reflux disease without esophagitis; I10 Essential (primary) hypertension; E78.3 Hyperchylomicronemia; F17.210 Nicotine dependence, cigarettes, uncomplicated
CPT/HCPCS: 99283

== ENCOUNTER 2022-01-25 11:14 | Emergency (ER) | payer MEDICARE ==
[2022-01-25 12:17] LABS: #Basophils 0.1 thou/uL (0.0-0.2); #Lymphocytes 0.9 thou/uL (1.20-3.40); #Monocytes 0.3 thou/uL (0.11-0.59); #Neutrophils 3.8 thou/uL (1.40-6.50); %Basophils 1.4 % (0.0-1.0); %Eosinophils 0.5 % (0.0-10.0); %Lymphocytes 17.4 % (21.0-51.0); %Monocytes 6.5 % (0.0-10.0); %Neutrophils 74.2 % (42.0-75.0); ALT (SGPT) 16 U/L (8-55); AST (SGOT) 27 U/L (5-34); Alkaline Phosphatase 71 U/L (40-110); Anion Gap 16 mmol/L (10-20); BUN (Urea Nitrogen) 14 mg/dL (9.8-20.1); Bilirubin, Total 0.3 mg/dL (0.2-1.2); Calc. Creatinine Clearance 0 mL/min (70-130); Calcium 8.6 mg/dL (7.8-10.44); Carbon Dioxide 23 mmol/L (23-31); Chloride 109 mmol/L (98-107); Globulin 2.3 g/dL (2.4-3.5); Glucose 99 mg/dL (83-110); Hemoglobin 9.6 g/dL (12.0-16.0); Hypochromia SLIGHT = 6-15 cells (100X) (0-5/hpf); Lipase 8 U/L (8-78); MDiff Complete? YES; Magnesium 1.6 mg/dL (1.6-2.6); Mean Corpuscular Hemoglobin 28.9 pg (27.0-31.0); Mean Corpuscular Volume 96.4 fL (78.0-98.0); Mean Platelet Volume 7.7 fL (7.4-10.4); Platelet Count 217 thou/uL (130-400); Polychromasia SLIGHT = 2-3 cells (100X) (0-2/hpf); Potassium 3.6 mmol/L (3.5-5.1); Protein, Total 6.3 g/dL (5.8-8.1); RBC Distribution Width 15.7 % (11.5-14.5); Red Blood Cell (RBC) Count 3.31 mill/uL (4.20-5.40); Sodium 144 mmol/L (136-145); White Blood Cell (WBC) Count 5.1 thou/uL (4.8-10.8)
[2022-01-25 12:44] LABS: Bilirubin Negative (Negative); Blood, Urine Negative (Negative); Clarity Hazy (Clear); Glucose, Urine (Dipstick) Negative (Negative); Ketone, Urine 40 mg/dL (Negative); Leukocyte Small (Negative); Nitrite Negative (Negative); Protein, Urine (Dipstick) Negative (Neg-Trace); Urobilinogen 0.2 mg/dL (Less than 2)
[2022-01-25 12:45] LABS: Bacteria/HPF Rare-Few HPF (None Seen); RBC/HPF None Seen HPF (0-3)
[2022-01-25] MEDS ORDERED: Sodium Chloride 0.9% 100 ML ONE (12:57)
[2022-01-25] MEDS ORDERED: cefTRIAXone\\ROCEPHIN 1 GM VIAL ONE (12:57)
[2022-01-25] MEDS ORDERED: Iopamidol 370 76% 100 ML VIAL ONE (13:03)
[2022-01-25] MEDS ORDERED: metroNIDAZOLE 500 MG/100 ML BAG ONE (14:06)
[2022-01-25] MEDS ORDERED: Morphine 4 MG/ML VIAL ONE (16:04)
[2022-01-25] MEDS ORDERED: Ondansetron PF 4 MG/2 ML Vial ONE (16:04)
== END 2022-01-25 16:24 | disposition short-term general hospital (02) ==
LOC: MADERS 11:14
DX: K52.9 Noninfective gastroenteritis and colitis, unspecified (principal); R93.5 Abnormal findings on diagnostic imaging of other abdominal regions, including retroperitoneum; I10 Essential (primary) hypertension; E78.5 Hyperlipidemia, unspecified; K21.9 Gastro-esophageal reflux disease without esophagitis; E78.00 Pure hypercholesterolemia, unspecified; F17.210 Nicotine dependence, cigarettes, uncomplicated
CPT/HCPCS: 36415; 74177; 80053; 81003; 81015; 82274; 83690; 83735; 83880; 85025; 87040; 87086; 96365; 96366; 96375; J0696; J2270; J2405; J3490; Q9967

== ENCOUNTER 2022-02-02 18:00 | Emergency (ER) | payer MEDICARE ==
[~2022-02-02 18:00] MED LIST changes: +Iopamidol 370 76% 100 ML VIAL ONE; -Iopamidol 370 76% 125 ML VIAL FS ONE
[2022-02-02] MEDS ORDERED: Ondansetron PF 4 MG/2 ML Vial ONE (18:54)
[2022-02-02] MEDS ORDERED: Sodium Chloride 0.9% 2,000 ML ONE (18:54)
[2022-02-02 18:56] LABS: #Basophils 0.1 thou/uL (0.0-0.2); #Lymphocytes 1.7 thou/uL (1.20-3.40); #Monocytes 0.5 thou/uL (0.11-0.59); #Neutrophils 3.5 thou/uL (1.40-6.50); %Basophils 1.5 % (0.0-1.0); %Eosinophils 0.6 % (0.0-10.0); %Lymphocytes 28.3 % (21.0-51.0); %Monocytes 9.3 % (0.0-10.0); %Neutrophils 60.3 % (42.0-75.0); Hemoglobin 10.9 g/dL (12.0-16.0); Mean Corpuscular HGB CONC 29.9 g/dL (32.0-36.0); Mean Corpuscular Volume 93.5 fL (78.0-98.0); Mean Platelet Volume 8.6 fL (7.4-10.4); Platelet Count 276 thou/uL (130-400); RBC Distribution Width 16.2 % (11.5-14.5); Red Blood Cell (RBC) Count 3.89 mill/uL (4.20-5.40); White Blood Cell (WBC) Count 5.8 thou/uL (4.8-10.8)
[2022-02-02 19:11] LABS: ALT (SGPT) 12 U/L (8-55); AST (SGOT) 21 U/L (5-34); Albumin 4.2 g/dL (3.4-4.8); Alkaline Phosphatase 65 U/L (40-110); Anion Gap 17 mmol/L (10-20); BUN (Urea Nitrogen) 14 mg/dL (9.8-20.1); Bilirubin, Total 0.4 mg/dL (0.2-1.2); Calc. Creatinine Clearance 0 mL/min (70-130); Calcium 9.1 mg/dL (7.8-10.44); Carbon Dioxide 23 mmol/L (23-31); Chloride 103 mmol/L (98-107); Globulin 2.5 g/dL (2.4-3.5); Glucose 115 mg/dL (83-110); Lipase 27 U/L (8-78); Potassium 3.4 mmol/L (3.5-5.1); Protein, Total 6.7 g/dL (5.8-8.1); Sodium 140 mmol/L (136-145)
[2022-02-02 21:07] LABS: Bilirubin Negative (Negative); Blood, Urine Negative (Negative); Clarity Clear (Clear); Glucose, Urine (Dipstick) Negative (Negative); Ketone, Urine 15 mg/dL (Negative); Leukocyte Trace (Negative); Nitrite Negative (Negative); Protein, Urine (Dipstick) Negative (Neg-Trace); RBC/HPF None Seen HPF (0-3); Urobilinogen 0.2 mg/dL (Less than 2); Yeast-Budding Rare HPF (None Seen); pH, Urine 5.5 (5.0-9.0)
[2022-02-02] MEDS ORDERED: Sulfameth/Trimethoprim DS 800-160mg TAB ONE (21:22)
[2022-02-02] MEDS ORDERED: cefTRIAXone\\ROCEPHIN 1 GM VIAL ONE (21:33)
[2022-02-02] MEDS ORDERED: Sodium Chloride 0.9% 100 ML ONE (21:33)
[2022-02-02] MEDS ORDERED: Pantoprazole 40 MG VIAL ONE (22:45)
== END 2022-02-02 23:12 | disposition short-term general hospital (02) ==
LOC: MADERS 18:00
DX: K29.00 Acute gastritis without bleeding (principal); E78.5 Hyperlipidemia, unspecified; I10 Essential (primary) hypertension; K21.9 Gastro-esophageal reflux disease without esophagitis; E78.00 Pure hypercholesterolemia, unspecified; F17.210 Nicotine dependence, cigarettes, uncomplicated; Z79.02 Long term (current) use of antithrombotics/antiplatelets; Z79.899 Other long term (current) drug therapy; Z79.82 Long term (current) use of aspirin
CPT/HCPCS: 36415; 74177; 80053; 81003; 81015; 83605; 83690; 84484; 85025; 87086; 93005; 96365; 96375; C9113; J0696; J2405; J3490; J7050; Q9967

== ENCOUNTER 2022-04-09 11:28 | Emergency (ER) | payer MEDICARE ==
[2022-04-09 12:23] LABS: #Basophils 0.1 thou/uL (0.0-0.2); #Eosinphils 0.3 thou/uL (0.0-0.7); #Lymphocytes 1.4 thou/uL (1.20-3.40); #Monocytes 0.3 thou/uL (0.11-0.59); #Neutrophils 4.2 thou/uL (1.40-6.50); %Eosinophils 4.6 % (0.0-10.0); %Lymphocytes 22.4 % (21.0-51.0); %Monocytes 5.3 % (0.0-10.0); %Neutrophils 66.8 % (42.0-75.0); Anisocytosis SLIGHT = 6-15 cells (100X) (0-5/hpf); Hypochromia SLIGHT = 6-15 cells (100X) (0-5/hpf); MDiff Complete? YES; Mean Corpuscular HGB CONC 30.6 g/dL (32.0-36.0); Mean Corpuscular Hemoglobin 27.2 pg (27.0-31.0); Mean Corpuscular Volume 88.9 fL (78.0-98.0); Mean Platelet Volume 7.3 fL (7.4-10.4); Platelet Count 266 thou/uL (130-400); Platelet Morphology Comment Appears Adequate; RBC Distribution Width 19.2 % (11.5-14.5); Red Blood Cell (RBC) Count 3.32 mill/uL (4.20-5.40); White Blood Cell (WBC) Count 6.3 thou/uL (4.8-10.8)
[2022-04-09 12:29] LABS: ALT (SGPT) 17 U/L (8-55); AST (SGOT) 27 U/L (5-34); Alkaline Phosphatase 71 U/L (40-110); Anion Gap 15 mmol/L (10-20); BUN (Urea Nitrogen) 19 mg/dL (9.8-20.1); Bilirubin, Total 0.2 mg/dL (0.2-1.2); Calc. Creatinine Clearance 0 mL/min (70-130); Calcium 9.3 mg/dL (7.8-10.44); Carbon Dioxide 28 mmol/L (23-31); Chloride 100 mmol/L (98-107); Estimated GFR 88; Globulin 2.2 g/dL (2.4-3.5); Glucose 121 mg/dL (83-110); Lipase 8 U/L (8-78); Potassium 4.4 mmol/L (3.5-5.1); Protein, Total 6.2 g/dL (5.8-8.1); Sodium 139 mmol/L (136-145)
[2022-04-09] MEDS ORDERED: Ondansetron PF 4 MG/2 ML Vial ONE (12:52)
[2022-04-09] MEDS ORDERED: Lidocaine Viscous Sol 2% 15 ml UD Cup ONE (12:52)
[2022-04-09] MEDS ORDERED: Dicyclomine 20 MG/2 ML VIAL ONE (12:52)
[2022-04-09] MEDS ORDERED: Mag-Al Plus 1200 MG/1200 MG/120 MG/30 ML UDCUP ONE (12:52)
[2022-04-09] MEDS ORDERED: Aspirin Chewable 81 MG TAB ONE (12:52)
== END 2022-04-09 14:36 | disposition home or self-care (01) ==
LOC: MADERS 11:28
DX: K57.30 Diverticulosis of large intestine without perforation or abscess without bleeding (principal); R07.9 Chest pain, unspecified; E78.5 Hyperlipidemia, unspecified; I10 Essential (primary) hypertension; F17.210 Nicotine dependence, cigarettes, uncomplicated; Z79.899 Other long term (current) drug therapy
CPT/HCPCS: 71045; 71275; 74174; 74177; 80053; 83605; 83690; 84484; 85025; 93005; 94760; J2405; Q9967

== ENCOUNTER 2022-04-18 15:05 | Emergency (ER) | payer MEDICARE ==
[2022-04-18] MEDS ORDERED: Ondansetron PF 4 MG/2 ML Vial ONE (15:47)
[2022-04-18] MEDS ORDERED: Sodium Chloride 0.9% 1,000 ML ONE (15:47)
[2022-04-18] MEDS ORDERED: Morphine 2 MG/ML VIAL ONE (15:47)
[2022-04-18 16:24] LABS: #Basophils 0.1 thou/uL (0.0-0.2); #Lymphocytes 1.2 thou/uL (1.20-3.40); #Monocytes 0.2 thou/uL (0.11-0.59); #Neutrophils 3.6 thou/uL (1.40-6.50); %Basophils 1.5 % (0.0-1.0); %Eosinophils 0.2 % (0.0-10.0); %Lymphocytes 24.3 % (21.0-51.0); %Monocytes 4.5 % (0.0-10.0); %Neutrophils 69.5 % (42.0-75.0); Hemoglobin 9.4 g/dL (12.0-16.0); Mean Corpuscular HGB CONC 29.7 g/dL (32.0-36.0); Mean Corpuscular Hemoglobin 27.2 pg (27.0-31.0); Mean Corpuscular Volume 91.7 fL (78.0-98.0); Mean Platelet Volume 9.4 fL (7.4-10.4); Platelet Count 322 thou/uL (130-400); RBC Distribution Width 18.5 % (11.5-14.5); Red Blood Cell (RBC) Count 3.46 mill/uL (4.20-5.40); White Blood Cell (WBC) Count 5.1 thou/uL (4.8-10.8)
[2022-04-18 16:39] LABS: ALT (SGPT) 11 U/L (8-55); AST (SGOT) 21 U/L (5-34); Albumin 4.2 g/dL (3.4-4.8); Alkaline Phosphatase 76 U/L (40-110); Anion Gap 13 mmol/L (10-20); BUN (Urea Nitrogen) 14 mg/dL (9.8-20.1); Bilirubin, Total 0.4 mg/dL (0.2-1.2); Calc. Creatinine Clearance 0 mL/min (70-130); Carbon Dioxide 26 mmol/L (23-31); Chloride 105 mmol/L (98-107); Estimated GFR 89; Globulin 2.7 g/dL (2.4-3.5); Glucose 103 mg/dL (83-110); Lipase 5 U/L (8-78); Potassium 3.4 mmol/L (3.5-5.1); Protein, Total 6.9 g/dL (5.8-8.1); Sodium 141 mmol/L (136-145)
== END 2022-04-19 | disposition home or self-care (01) ==
LOC: MADERS 15:05
DX: R19.00 Intra-abdominal and pelvic swelling, mass and lump, unspecified site (principal); I72.2 Aneurysm of renal artery; G89.29 Other chronic pain; R10.12 Left upper quadrant pain; R10.32 Left lower quadrant pain; R11.2 Nausea with vomiting, unspecified; I10 Essential (primary) hypertension; E78.5 Hyperlipidemia, unspecified; K21.9 Gastro-esophageal reflux disease without esophagitis; E78.00 Pure hypercholesterolemia, unspecified; F17.210 Nicotine dependence, cigarettes, uncomplicated
CPT/HCPCS: 74177; 80053; 83690; 85025; 96361; 96374; 96375; J2270; J2405; J7050; Q9967

== ENCOUNTER 2022-05-09 02:31 | Emergency (ER) | payer MEDICARE ==
[2022-05-09 03:14] LABS: #Eosinphils 0.2 thou/uL (0.0-0.7); #Lymphocytes 0.8 thou/uL (1.20-3.40); #Monocytes 0.4 thou/uL (0.11-0.59); #Neutrophils 4.8 thou/uL (1.40-6.50); %Basophils 0.4 % (0.0-1.0); %Eosinophils 3.3 % (0.0-10.0); %Lymphocytes 13.4 % (21.0-51.0); %Monocytes 5.7 % (0.0-10.0); %Neutrophils 77.2 % (42.0-75.0); ALT (SGPT) 18 U/L (8-55); AST (SGOT) 30 U/L (5-34); Albumin 3.9 g/dL (3.4-4.8); Alkaline Phosphatase 71 U/L (40-110); Anion Gap 17 mmol/L (10-20); BUN (Urea Nitrogen) 20 mg/dL (9.8-20.1); Bilirubin, Total Less than 0.2 mg/dL (0.2-1.2); CK (CPK) 602 U/L (29-168); Calc. Creatinine Clearance 0 mL/min (70-130); Calcium 8.8 mg/dL (7.8-10.44); Carbon Dioxide 24 mmol/L (23-31); Chloride 103 mmol/L (98-107); Estimated GFR 84; Globulin 2.3 g/dL (2.4-3.5); Glucose 160 mg/dL (83-110); Hemoglobin 8.5 g/dL (12.0-16.0); Hypochromia SLIGHT = 6-15 cells (100X) (0-5/hpf); MDiff Complete? YES; Mean Corpuscular HGB CONC 28.6 g/dL (32.0-36.0); Mean Corpuscular Hemoglobin 27.1 pg (27.0-31.0); Mean Corpuscular Volume 94.8 fL (78.0-98.0); Mean Platelet Volume 8.2 fL (7.4-10.4); Microcytosis SLIGHT = 6-15 cells (100X) (0-5/hpf); Platelet Count 218 thou/uL (130-400); Potassium 3.9 mmol/L (3.5-5.1); Protein, Total 6.2 g/dL (5.8-8.1); RBC Distribution Width 19.2 % (11.5-14.5); Red Blood Cell (RBC) Count 3.15 mill/uL (4.20-5.40); Sodium 140 mmol/L (136-145); White Blood Cell (WBC) Count 6.2 thou/uL (4.8-10.8)
[2022-05-09 04:43] LABS: Bilirubin Negative (Negative); Blood, Urine Trace (Negative); Clarity Clear (Clear); Glucose, Urine (Dipstick) Negative (Negative); Ketone, Urine Negative (Negative); Leukocyte Negative (Negative); Nitrite Negative (Negative); Protein, Urine (Dipstick) Negative (Neg-Trace); Urobilinogen 0.2 mg/dL (Less than 2)
[2022-05-09 04:52] LABS: Specific Gravity, Urine Greater than 1.036 (1.002-1.036)
[2022-05-09 04:54] LABS: Calcium Oxalate Crystals 1+ HPF (None Seen); RBC/HPF 0-3 HPF (0-3); WBC/HPF None Seen HPF (0-3)
[2022-05-09 05:16] LABS: SARS-CoV-2 NAA Rapid Test Not Detected (NotDetected)
[2022-05-09] MEDS ORDERED: Morphine 2 MG/ML VIAL ONE (06:18)
[2022-05-09] MEDS ORDERED: Iopamidol 370 76% 100 ML VIAL ONE (08:32)
== END 2022-05-09 08:47 | disposition home or self-care (01) ==
LOC: MADERS 02:31
DX: S13.4XXA Sprain of ligaments of cervical spine, initial encounter (principal); S05.12XA Contusion of eyeball and orbital tissues, left eye, initial encounter; I10 Essential (primary) hypertension; K21.9 Gastro-esophageal reflux disease without esophagitis; E78.00 Pure hypercholesterolemia, unspecified; F17.210 Nicotine dependence, cigarettes, uncomplicated; W18.30XA Fall on same level, unspecified, initial encounter; Z20.822 Contact with and (suspected) exposure to COVID-19; Z79.82 Long term (current) use of aspirin; Z79.899 Other long term (current) drug therapy
CPT/HCPCS: 51701; 70450; 71260; 72125; 72170; 74177; 80053; 81003; 81015; 82550; 84484; 85025; 93005; 96374; G0390; J2270; Q9967; U0002

== ENCOUNTER 2022-11-17 10:10 | Outpatient (CLI) | payer MEDICARE | END 2022-11-17 10:11 | disposition home or self-care (01) | LOC: MADLAB 10:10 | PROVIDERS: ATTEND Internal Medicine | DX: I10 Essential (primary) hypertension (principal) | CPT/HCPCS: 71046 ==

== ENCOUNTER 2023-07-22 17:37 | Emergency (ER) | payer OTHER, SELFPAY ==
[2023-07-22] MEDS ORDERED: Aspirin Chewable 81 MG TAB ONE (18:08)
[2023-07-22] MEDS ORDERED: Dicyclomine 10 MG CAP ONE (18:08)
[2023-07-22] MEDS ORDERED: Lactated Ringer's 1,000 ML ONE (18:08)
[2023-07-22 18:59] LABS: Bilirubin Small (Negative); Blood, Urine Negative (Negative); Glucose, Urine (Dipstick) Negative (Negative); Ketone, Urine 15 mg/dL (Negative); Leukocyte Trace (Negative); Nitrite Negative (Negative); Protein, Urine (Dipstick) 100 mg/dL (Neg-Trace); Urobilinogen 0.2 mg/dL (Less than 2); pH, Urine 5.5 (5.0-9.0)
[2023-07-22 19:06] LABS: Clarity Hazy (Clear); Specific Gravity, Urine 1.041 (1.002-1.036)
[2023-07-22 19:08] LABS: ALT (SGPT) 10 U/L (8-55); AST (SGOT) 26 U/L (5-34); Albumin 3.2 g/dL (3.4-4.8); Alkaline Phosphatase 63 U/L (40-110); Anion Gap 15 mmol/L (10-20); BUN (Urea Nitrogen) 11 mg/dL (9.8-20.1); Bilirubin, Total 0.3 mg/dL (0.2-1.2); CK (CPK) 211 U/L (29-168); Calc. Creatinine Clearance 0 mL/min (70-130); Carbon Dioxide 23 mmol/L (23-31); Chloride 109 mmol/L (98-107); Estimated GFR 89; Globulin 2.6 g/dL (2.4-3.5); Glucose 107 mg/dL (83-110); Magnesium 1.8 mg/dL (1.6-2.6); Potassium 4.5 mmol/L (3.5-5.1); Protein, Total 5.8 g/dL (5.8-8.1); Sodium 142 mmol/L (136-145); Troponin I Less than 0.010 ng/mL (< 0.028)
[2023-07-22 19:09] LABS: PTT 36.1 sec (22.9-36.1); Prothrombin Time 13.7 sec (12.0-14.7)
[2023-07-22 19:17] LABS: Bacteria/HPF Rare-Few HPF (None Seen); CAUTI Indications for Culture Dysuria,urgency,freq; RBC/HPF None Seen HPF (0-3); Urine Culture Reflex No No
[2023-07-22 19:21] LABS: #Eosinphils 0.1 thou/uL (0.0-0.7); #Lymphocytes 0.8 thou/uL (1.20-3.40); #Monocytes 0.4 thou/uL (0.11-0.59); #Neutrophils 2.8 thou/uL (1.40-6.50); %Eosinophils 1.8 % (0.0-10.0); %Lymphocytes 20.7 % (21.0-51.0); %Monocytes 8.9 % (0.0-10.0); %Neutrophils 67.6 % (42.0-75.0); Anisocytosis SLIGHT = 6-15 cells (100X) (0-5/hpf); Hematocrit 32.6 % (36.0-47.0); Hemoglobin 10.7 g/dL (12.0-16.0); MDiff Complete? YES; Macrocytosis SLIGHT = 6-15 cells (100X) (0-5/hpf); Mean Corpuscular HGB CONC 32.7 g/dL (32.0-36.0); Mean Corpuscular Hemoglobin 36.3 pg (27.0-31.0); Mean Corpuscular Volume 110.8 fl (78.0-98.0); Mean Platelet Volume 7.7 fL (7.4-10.4); Platelet Count 199 10x3/uL (130-400); Polychromasia SLIGHT = 2-3 cells (100X) (0-2/hpf); RBC Distribution Width 17.9 % (11.5-14.5); Red Blood Cell (RBC) Count 2.94 mill/uL (4.20-5.40); White Blood Cell (WBC) Count 4.1 10x3/uL (4.8-10.8)
[2023-07-22 19:22] LABS: Lipase Less than 4 U/L (8-78)
[2023-07-22] MEDS ORDERED: traMADol HCl 50 MG TAB ONE (20:43)
[2023-07-22] MEDS ORDERED: Gabapentin 100 MG CAP ONE (20:44)
[2023-07-22] MEDS ORDERED: Azithromycin 250 MG TAB ONE (20:44)
[2023-07-22] MEDS ORDERED: Acetaminophen 500 MG TAB ONE (20:44)
[2023-07-23 17:11] LABS: Campy jejuni + coli by PCR Negative (Negative); STEC Shiga Toxin 1+2 Negative (Negative); Salmonella spp. by PCR Negative (Negative); Shigella spp + EIEC by PCR Negative (Negative)
== END 2023-07-22 22:54 | disposition home or self-care (01) ==
LOC: MADERS 17:37
DX: K52.9 Noninfective gastroenteritis and colitis, unspecified (principal); R07.89 Other chest pain; K83.8 Other specified diseases of biliary tract; I71.43 Infrarenal abdominal aortic aneurysm, without rupture; I10 Essential (primary) hypertension; K21.9 Gastro-esophageal reflux disease without esophagitis; E78.00 Pure hypercholesterolemia, unspecified; F17.210 Nicotine dependence, cigarettes, uncomplicated; Z79.82 Long term (current) use of aspirin; Z79.899 Other long term (current) drug therapy
CPT/HCPCS: 36415; 71045; 74177; 80053; 81001; 82274; 82550; 83605; 83690; 83735; 84484; 85025; 85610; 85730; 87040; 87149; 87505; 87804; 93005; 94760; 96360; 96361; J7120

== ENCOUNTER 2023-08-02 00:25 | Emergency (ER) | payer OTHER ==
[2023-08-02] MEDS ORDERED: Promethazine HCl 25 MG/ML VIAL ONE (00:56)
[2023-08-02 01:18] LABS: #Basophils 0.1 thou/uL (0.0-0.2); #Eosinphils 0.2 thou/uL (0.0-0.7); #Lymphocytes 1.6 thou/uL (1.20-3.40); #Monocytes 0.4 thou/uL (0.11-0.59); #Neutrophils 4.4 thou/uL (1.40-6.50); %Basophils 0.8 % (0.0-1.0); %Eosinophils 3.4 % (0.0-10.0); %Lymphocytes 23.7 % (21.0-51.0); %Monocytes 6.5 % (0.0-10.0); %Neutrophils 65.6 % (42.0-75.0); Hematocrit 35.3 % (36.0-47.0); Hemoglobin 11.1 g/dL (12.0-16.0); Mean Corpuscular HGB CONC 31.5 g/dL (32.0-36.0); Mean Corpuscular Hemoglobin 32.7 pg (27.0-31.0); Mean Corpuscular Volume 103.8 fl (78.0-98.0); Mean Platelet Volume 7.6 fL (7.4-10.4); Platelet Count 179 10x3/uL (130-400); RBC Distribution Width 15.7 % (11.5-14.5); White Blood Cell (WBC) Count 6.7 10x3/uL (4.8-10.8)
[2023-08-02 01:34] LABS: ALT (SGPT) 9 U/L (8-55); AST (SGOT) 18 U/L (5-34); Albumin 3.8 g/dL (3.4-4.8); Alkaline Phosphatase 70 U/L (40-110); Anion Gap 14 mmol/L (10-20); BUN (Urea Nitrogen) 14 mg/dL (9.8-20.1); Bilirubin, Total 0.2 mg/dL (0.2-1.2); Calc. Creatinine Clearance 0 mL/min (70-130); Calcium 8.5 mg/dL (7.8-10.44); Carbon Dioxide 25 mmol/L (23-31); Chloride 109 mmol/L (98-107); Estimated GFR 88; Globulin 2.4 g/dL (2.4-3.5); Glucose 94 mg/dL (83-110); Lipase 8 U/L (8-78); Potassium 3.9 mmol/L (3.5-5.1); Protein, Total 6.2 g/dL (5.8-8.1); Sodium 144 mmol/L (136-145)
[2023-08-02] MEDS ORDERED: Morphine 2 MG/ML VIAL ONE ×2 (02:26→04:20)
[2023-08-02] MEDS ORDERED: Iopamidol 370 76% 100 ML VIAL ONE (13:13)
[2023-08-02 22:26] LABS: Campy jejuni + coli by PCR Negative (Negative); STEC Shiga Toxin 1+2 Negative (Negative); Salmonella spp. by PCR Negative (Negative); Shigella spp + EIEC by PCR Negative (Negative)
== END 2023-08-02 06:07 | disposition home or self-care (01) ==
LOC: MADERS 00:25
DX: R10.84 Generalized abdominal pain (principal); F17.210 Nicotine dependence, cigarettes, uncomplicated; K21.9 Gastro-esophageal reflux disease without esophagitis; I10 Essential (primary) hypertension; E78.00 Pure hypercholesterolemia, unspecified; Z79.899 Other long term (current) drug therapy; Z79.82 Long term (current) use of aspirin
CPT/HCPCS: 36415; 74177; 80053; 83605; 83630; 83690; 85025; 87040; 87505; 96365; 96366; 96375; 96376; J2272; J2550; Q9967

== ENCOUNTER 2024-05-01 10:27 | Emergency (ER) | payer MEDICARE ==
[2024-05-01] MEDS ORDERED: Pantoprazole 40 MG VIAL ONE (10:54)
[2024-05-01] MEDS ORDERED: Sodium Chloride 0.9% 1,000 ML ONE (10:54)
[2024-05-01 11:07] LABS: #Basophils 0.1 thou/uL (0.0-0.2); #Lymphocytes 1.1 thou/uL (1.20-3.40); #Monocytes 0.4 thou/uL (0.11-0.59); #Neutrophils 11.8 thou/uL (1.40-6.50); %Basophils 0.5 % (0.0-1.0); %Eosinophils 0.1 % (0.0-10.0); %Lymphocytes 8.1 % (21.0-51.0); %Monocytes 2.7 % (0.0-10.0); %Neutrophils 88.5 % (42.0-75.0); Hematocrit 31.3 % (36.0-47.0); Hemoglobin 9.4 g/dL (12.0-16.0); Mean Corpuscular HGB CONC 30.2 g/dL (32.0-36.0); Mean Corpuscular Hemoglobin 31.9 pg (27.0-31.0); Mean Corpuscular Volume 105.8 fl (78.0-98.0); Mean Platelet Volume 6.2 fL (7.4-10.4); Platelet Count 334 10x3/uL (130-400); RBC Distribution Width 16.5 % (11.5-14.5); Red Blood Cell (RBC) Count 2.95 mill/uL (4.20-5.40); White Blood Cell (WBC) Count 13.3 10x3/uL (4.8-10.8)
[2024-05-01 11:12] LABS: INR-International Normal Ratio 1.1; Prothrombin Time 13.7 sec (12.0-14.7)
[2024-05-01 11:13] LABS: PTT 22.2 sec (22.9-36.1)
[2024-05-01 11:20] LABS: Anisocytosis SLIGHT = 6-15 cells (100X) (0-5/hpf); Hypochromia SLIGHT = 6-15 cells (100X) (0-5/hpf); Macrocytosis SLIGHT = 6-15 cells (100X) (0-5/hpf)
[2024-05-01 11:22] LABS: ALT (SGPT) 15 U/L (8-55); AST (SGOT) 19 U/L (5-34); Albumin 3.7 g/dL (3.4-4.8); Alkaline Phosphatase 57 U/L (40-110); Anion Gap 18 mmol/L (10-20); BUN (Urea Nitrogen) 36 mg/dL (9.8-20.1); Bilirubin, Total 0.3 mg/dL (0.2-1.2); Calc. Creatinine Clearance 0 mL/min (70-130); Calcium 9.1 mg/dL (7.8-10.44); Carbon Dioxide 23 mmol/L (23-31); Chloride 105 mmol/L (98-107); Estimated GFR 70; Globulin 2.3 g/dL (2.4-3.5); Glucose 142 mg/dL (83-110); Sodium 142 mmol/L (136-145)
[2024-05-01] MEDS ORDERED: Morphine 2 MG/ML VIAL ONE (11:30)
== END 2024-05-01 13:05 | disposition short-term general hospital (02) ==
LOC: MADERS 10:27
DX: K92.2 Gastrointestinal hemorrhage, unspecified (principal); F17.210 Nicotine dependence, cigarettes, uncomplicated; D64.9 Anemia, unspecified; I10 Essential (primary) hypertension; Z79.82 Long term (current) use of aspirin
CPT/HCPCS: 80053; 82274; 85025; 85610; 85730; 86850; 86900; 86901; 96361; 96374; 96375; J2272; J2470; J7030

== ENCOUNTER 2025-04-18 20:45 | Emergency (ER) | payer OTHER ==
[2025-04-18] MEDS ORDERED: Pantoprazole 40 MG VIAL ONE (21:16)
[2025-04-18] MEDS ORDERED: Ondansetron PF 4 MG/2 ML Vial ONE (21:16)
[2025-04-18 21:20] LABS: INR-International Normal Ratio 1.1; Prothrombin Time 14.5 sec (12.0-14.7)
[2025-04-18 21:21] LABS: PTT 37.2 sec (22.9-36.1)
[2025-04-18 21:31] LABS: ALT (SGPT) 10 U/L (Less than 34); AST (SGOT) 25 U/L (11-34); Albumin 3.4 g/dL (3.1-4.5); Alkaline Phosphatase 55 U/L (40-110); Anion Gap 17 mmol/L (10-20); BUN (Urea Nitrogen) 27 mg/dL (9.8-20.1); Bilirubin, Total 0.4 mg/dL (0.3-1.2); Calc. Creatinine Clearance 0 mL/min (70-130); Calcium 8.7 mg/dL (7.8-10.44); Carbon Dioxide 24 mmol/L (23-31); Chloride 106 mmol/L (98-107); Globulin 3.1 g/dL (2.4-3.5); Glucose 159 mg/dL (83-110); Magnesium 1.7 mg/dL (1.6-2.6); Potassium 3.2 mmol/L (3.5-5.1); Sodium 144 mmol/L (136-145)
[2025-04-18 21:38] LABS: Anisocytosis SLIGHT = 6-15 cells (100X) (0-5/hpf); Hematocrit 40.1 % (36.0-47.0); Hemoglobin 12.5 g/dL (12.0-16.0); MDiff Complete? YES; Mean Corpuscular Hemoglobin 30.4 pg (27.0-31.0); Mean Corpuscular Volume 97.7 fl (78.0-98.0); Platelet Adequacy Comment Appears Adequate; Platelet Count 263 10x3/uL (130-400); Red Blood Cell (RBC) Count 4.11 mill/uL (4.20-5.40); Schistocytes SLIGHT = 2-5 cells (100X) (0-1/hpf); White Blood Cell (WBC) Count 11.8 10x3/uL (4.8-10.8)
[2025-04-18 21:39] LABS: Lipase Less than 4 U/L (8-78)
== END 2025-04-19 01:54 | disposition short-term general hospital (02) ==
LOC: MADERS 20:45
DX: A41.9 Sepsis, unspecified organism (principal); K52.9 Noninfective gastroenteritis and colitis, unspecified; I10 Essential (primary) hypertension; E78.5 Hyperlipidemia, unspecified; F17.210 Nicotine dependence, cigarettes, uncomplicated; Z79.82 Long term (current) use of aspirin; Z79.899 Other long term (current) drug therapy
CPT/HCPCS: 74177; 80053; 83605; 83690; 83735; 85025; 85610; 85730; 86850; 86900; 86901; 87040; 93005; 96361; 96365; 96375; J2405; J2470; J2543; J3010; J7030; Q9967

== ENCOUNTER 2025-05-09 11:52 | Emergency (ER) | payer OTHER ==
[2025-05-09 12:47] LABS: #Basophils 0.0 thou/uL (0.0-0.2); #Eosinophils 0.1 thou/uL (0.0-0.7); #Lymphocytes 1.0 thou/uL (1.20-3.40); #Monocytes 0.2 thou/uL (0.11-0.59); #Neutrophils 2.9 thou/uL (1.40-6.50); %Basophils 1.1 % (0.0-1.0); %Eosinophils 1.4 % (0.0-10.0); %Lymphocytes 22.9 % (21.0-51.0); %Monocytes 5.1 % (0.0-10.0); %Neutrophils 69.4 % (42.0-75.0); Hematocrit 34.3 % (36.0-47.0); Hemoglobin 10.4 g/dL (12.0-16.0); Mean Corpuscular Hemoglobin 29.3 pg (27.0-31.0); Mean Corpuscular Volume 96.2 fl (78.0-98.0); Platelet Count 327 10x3/uL (130-400); Red Blood Cell (RBC) Count 3.56 mill/uL (4.20-5.40); White Blood Cell (WBC) Count 4.2 10x3/uL (4.8-10.8)
[2025-05-09 12:53] LABS: INR-International Normal Ratio 1.0; Prothrombin Time 13.4 sec (12.0-14.7)
[2025-05-09 12:54] LABS: PTT 33.7 sec (22.9-36.1)
[2025-05-09 13:01] LABS: ALT (SGPT) 10 U/L (Less than 34); AST (SGOT) 23 U/L (11-34); Albumin 3.4 g/dL (3.1-4.5); Alkaline Phosphatase 66 U/L (40-110); Anion Gap 17 mmol/L (10-20); BUN (Urea Nitrogen) 14 mg/dL (9.8-20.1); Bilirubin, Total 0.3 mg/dL (0.3-1.2); Calc. Creatinine Clearance 0 mL/min (70-130); Calcium 8.8 mg/dL (7.8-10.44); Carbon Dioxide 23 mmol/L (23-31); Chloride 105 mmol/L (98-107); Globulin 2.8 g/dL (2.4-3.5); Glucose 117 mg/dL (83-110); Potassium 3.7 mmol/L (3.5-5.1); Sodium 141 mmol/L (136-145)
[2025-05-09 13:02] LABS: Troponin I 0.015 ng/mL (< 0.028)
[2025-05-09 13:22] LABS: Lipase Less than 4 U/L (8-78)
[2025-05-09] MEDS ORDERED: Mag-Al 1200 mg/1200 mg/30 ML UDCUP ONE (14:56)
[2025-05-09] MEDS ORDERED: Aspirin Chewable 81 MG TAB ONE (14:56)
[2025-05-09] MEDS ORDERED: Lidocaine Viscous Sol 2% 15 ml UD Cup ONE (14:57)
[2025-05-09] MEDS ORDERED: Pantoprazole 40 MG VIAL ONE (16:10)
[2025-05-09 16:11] LABS: Troponin I Less than 0.010 ng/mL (< 0.028)
[2025-05-09 18:48] LABS: Troponin I Less than 0.010 ng/mL (< 0.028)
== END 2025-05-09 20:49 | disposition short-term general hospital (02) ==
LOC: MADERS 11:52
DX: R07.2 Precordial pain (principal); R10.13 Epigastric pain; R11.2 Nausea with vomiting, unspecified; E78.5 Hyperlipidemia, unspecified; I10 Essential (primary) hypertension; F17.210 Nicotine dependence, cigarettes, uncomplicated; Z79.899 Other long term (current) drug therapy; Z79.82 Long term (current) use of aspirin
CPT/HCPCS: 36415; 71045; 74176; 80053; 83605; 83690; 84484; 85025; 85610; 85730; 87040; 93005; 96361; 96374; 96375; 96376; J2270; J2470; J7030; Q0162